=== PATIENT | male | born 1960 | race Caucasian/White ===

== ENCOUNTER 2016-11-18 12:21 | Emergency (ER) | payer OTHER ==
[2016-11-18 12:27] VITALS: BP 165/112; PULSE 88; TEMP 97.5; BMI 39.4
[2016-11-18] MEDS ORDERED: traMADol HCL 50 MG TABLET PO ONE (12:47)
[2016-11-18] MEDS ORDERED: traMADol HCL 50 MG TABLET ONE (12:52)
--- NOTE | 2016-11-18 13:00 | PDOC ---
History of Present Illness - General Chief Complaint: Pain Stated Complaint: TOOTH PAIN Time Seen by Provider: 11/18/16 12:34 History Source: Patient - History of Present Illness Timing/Duration: other Severity: moderate Associated Symptoms: denies: fever/chills, nausea/vomiting Past History - Past Medical History Allergies/Adverse Reactions: Allergies Allergy/AdvReac Type Severity Reaction Status Date / Time avocado [Avocado] Allergy Verified 11/18/16 12:27 Home Medications: Ambulatory Orders Amlodipine Bes/Olmesartan Med [Link 10-40 mg Tablet] 1 each PO DAILY #60 tablet 07/19/14 Acetaminophen/Caffeine/Butalb [Fioricet -] 1 tab PO BID PRN 12/22/15 Levofloxacin [Levaquin -] 500 mg PO DAILY #7 tablet 12/22/15 Metronidazole [Flagyl -] 250 mg PO TID #21 tablet 12/22/15 Oxycodone HCl/Acetaminophen [Percocet 5-325 mg Tablet] 1 tab PO Q4H #20 tablet MDD 6mg 11/18/16 GI Disorders: (ulcerative colitis) HTN: Yes Other medical history: MIGRAINES - Psycho/Social/Smoking Cessation Hx Suicidal Ideation: No Smoking History: Current every day smoker Have you smoked in the past 12 months: Yes Number of Cigarettes Smoked Daily: 10 Information on smoking cessation initiated: No Hx Alcohol Use: No Drug/Substance Use Hx: No Review of Systems - Review of Systems Constitutional: No: Chills, Fever *Physical Exam - Vital Signs Last Vital Signs Temp Pulse Resp BP Pulse Ox 97.5 F L 88 18 165/112 97 11/18/16 12:22 11/18/16 12:22 11/18/16 12:22 11/18/16 12:22 11/18/16 12:22 - Physical Exam General Appearance: Yes: Appropriately Dressed. No: Apparent Distress HEENT: positive: Normal Voice, Other (dental caries and decay, +ttp to L lower 1st molar, no s/o infection) Neck: positive: Supple. negative: Lymphadenopathy (R), Lymphadenopathy (L) Respiratory/Chest: negative: Respiratory Distress ED Treatment Course - Medications Given in the ED: ED Medications Discontinued Medications Generic Name Dose Route Start Last Admin Trade Name Freq PRN Reason Stop Dose Admin Tramadol HCl 50 mg 11/18/16 12:47 11/18/16 12:53 Ultram - PO 11/18/16 12:48 50 mg ONCE ONE Administration Medical Decision Making - Medical Decision Making 11/18/16 13:02 56-year-old male, denies any significant past medical history, here with dental pain. Patient states he developed pain to left lower molar a week ago and was seen by his dentist and had tooth removed and started on penicillin. Has since completed antibiotics but here because tooth adjacent to extracted tooth became painful last night. No facial swelling, fever or chills. Pt well debbie in NAD w/ poor dentition c/w dental caries and dental decay, has +ttp to palpation of L lower 1st molar, no swelling, erythema or discharge. Dc w/ pain control and give dental referral as pt currently unsatisfied w/ current dentist 11/18/16 13:08 *DC/Admit/Observation/Transfer Diagnosis at time of Disposition: Toothache - Discharge Dispostion Disposition: HOME Condition at time of disposition: Good - Prescriptions Prescriptions: Oxycodone HCl/Acetaminophen [Percocet 5-325 mg Tablet] 1 tab PO Q4H #20 tablet MDD 6mg - Patient Instructions Printed Discharge Instructions: Tooth Decay Additional Instructions: Please follow up at following dental clinic this week: [facility] [address] [place] [id number]
== END 2016-11-18 13:12 | disposition home or self-care (01) ==
LOC: JERFT 12:21
DX: K08.89 Other specified disorders of teeth and supporting structures (principal); I10 Essential (primary) hypertension; G43.909 Migraine, unspecified, not intractable, without status migrainosus
CPT/HCPCS: 99281-25

== ENCOUNTER 2017-01-06 16:32 | Emergency (ER) | payer OTHER ==
[2017-01-06 16:37] VITALS: BP 150/99; PULSE 83; TEMP 97.6; BMI 40.3
--- NOTE | 2017-01-06 17:06 | PDOC ---
History of Present Illness <Dyllan Cuevas - Last Filed: 01/06/17 22:21> - History of Present Illness Initial Comments: 01/06/17 17:45 Patient is a 56 year old male with significant medical hx of ulcerative colitis , HTN and migraines who is presenting to the ED with suprapubic pain and diarrhea for one week. The patient reports some diffuse abdominal pain that is significantly worse in the suprapubic area. The patient states that last week his diarrhea was watery and yesterday it was black. Denies fever, chills, vomiting. PMD: Emmanuel Lopez MD GI: Ray Cervnates MD <Cari Morrison - Last Filed: 01/06/17 22:30> - General Chief Complaint: Pain, Acute Stated Complaint: ABDOMINAL PAIN Time Seen by Provider: 01/06/17 17:05 Past History - Past Medical History Diabetes: Yes GI Disorders: (ulcerative colitis) HTN: Yes Other medical history: MIGRAINES - Psycho/Social/Smoking Cessation Hx Suicidal Ideation: No Smoking History: Current every day smoker Have you smoked in the past 12 months: Yes Number of Cigarettes Smoked Daily: 20 Information on smoking cessation initiated: No Hx Alcohol Use: No Drug/Substance Use Hx: No <Dyllan Cuevas - Last Filed: 01/06/17 22:21> <Cari Morrison - Last Filed: 01/06/17 22:30> - Past Medical History Allergies/Adverse Reactions: Allergies Allergy/AdvReac Type Severity Reaction Status Date / Time avocado [Avocado] Allergy Verified 01/06/17 16:37 Home Medications: Ambulatory Orders Amlodipine Bes/Olmesartan Med [Link 10-40 mg Tablet] 1 each PO DAILY #60 tablet 07/19/14 Acetaminophen/Caffeine/Butalb [Fioricet -] 1 tab PO BID PRN 12/22/15 Canagliflozin/Metformin HCl [Invokamet 50-500 mg Tablet] 1 each PO BID 01/06/17 Lipase/Protease/Amylase [Luisito Kelly 36,000 Units Capsule] 1 each PO TID 01/06/17 Review of Systems - Review of Systems Comments:: 01/06/17 17:46 CONSTITUTIONAL: Absent: fever, chills, diaphoresis, generalized weakness, malaise, loss of appetite HEENT: Absent: rhinorrhea, nasal congestion, throat pain, throat swelling, difficulty swallowing, mouth swelling, ear pain, eye pain, visual changes CARDIOVASCULAR: Absent: chest pain, syncope, palpitations, irregular heart rate, lightheadedness , peripheral edema RESPIRATORY: Absent: cough, shortness of breath, dyspnea with exertion, orthopnea, wheezing, stridor, hemoptysis GASTROINTESTINAL: Present: suprapubic pain, diarrhea Absent: abdominal distension, nausea, vomiting, constipation, melena, hematochezia GENITOURINARY: Absent: dysuria, frequency, urgency, hesitancy, hematuria, flank pain, genital pain MUSCULOSKELETAL: Absent: myalgia, arthralgia, joint swelling SKIN: Absent: rash, itching, pallor HEMATOLOGIC/IMMUNOLOGIC: Absent: easy bleeding, easy bruising, lymphadenopathy, frequent infections ENDOCRINE: Absent: unexplained weight gain, unexplained weight loss, heat intolerance, cold intolerance NEUROLOGIC: Absent: headache, focal weakness or paresthesia, dizziness, unsteady gait, seizure, mental status changes, bladder or bowel incontinence. PSYCHIATRIC: Absent: anxiety, depression, suicidal or homicidal ideation, hallucinations <Cari Morrison - Last Filed: 01/06/17 22:30> *Physical Exam - Vital Signs Last Vital Signs Temp Pulse Resp BP Pulse Ox 97.6 F 83 18 150/99 96 01/06/17 16:33 01/06/17 16:33 01/06/17 16:33 01/06/17 16:33 01/06/17 16:33 <Dyllan Cuevas - Last Filed: 01/06/17 22:21> - Vital Signs Last Vital Signs Temp Pulse Resp BP Pulse Ox 97.6 F 83 18 150/99 96 01/06/17 16:33 01/06/17 16:33 01/06/17 16:33 01/06/17 16:33 01/06/17 16:33 - Physical Exam Comments: 01/06/17 17:46 GENERAL: Well developed, well nourished. Awake and alert. No acute distress. HEENT: Normocephalic, atraumatic. PERRLA, EOMI. No conjunctival pallor. Sclera are non- icteric. Moist mucous membranes. Oropharynx is clear. NECK: Supple. Full ROM. No JVD. Carotid pulses 2+ and symmetric, without bruits. No thyromegaly. No lymphadenopathy. CARDIOVASCULAR: Regular rate and rhythm. No murmurs, rubs, or gallops. Distal pulses are 2+ and symmetric. PULMONARY: No evidence of respiratory distress. Lungs clear to auscultation bilaterally. No wheezing, rales or rhonchi. ABDOMINAL: Soft. Diffusely tender. No peritoneal signs. Non-distended. No rebound or guarding. No organomegaly. Normoactive bowel sounds. MUSCULOSKELETAL: Normal range of motion at all joints. No bony deformities or tenderness. No CVA tenderness. EXTREMITIES: No cyanosis. No clubbing. No edema. No calf tenderness. SKIN: Warm and dry. Normal capillary refill. No rashes. No jaundice. NEUROLOGICAL: Alert, awake, appropriate. Cranial nerves 2-12 intact. Normal speech. Gait is normal without ataxia. PSYCHIATRIC: Cooperative. Good eye contact. Appropriate mood and affect. <Cari Morrison - Last Filed: 01/06/17 22:30> Heart Score/ECG Review #1 01/06/17 17:49 Normal sinus rhythm at 70 bpm Possible Left atrial enlargement Left ventricular hypertrophy Abnormal ECG <Cari Morrison - Last Filed: 01/06/17 22:30> ED Treatment Course - LABORATORY CBC & Chemistry Diagram: 01/06/17 17:11 01/06/17 17:11 <Dyllan Cuevas - Last Filed: 01/06/17 22:21> - LABORATORY CBC & Chemistry Diagram: 01/06/17 17:11 01/06/17 17:11 - RADIOLOGY Radiograph Interpretation: 01/06/17 22:28 Abdomen/Pelvis CT Impression: A few diverticula are again noted at the distal descending up to the mid sigmoid colon without evidence of acute diverticulitis. No CT evidence of an acute process in the abdomen and pelvis. Correlate clinically for further evaluation and follow-up. Stable approximately 6 mm pulmonary nodule in the right middle lobe. Reported By: Michele Khan MD <Cari Morrison - Last Filed: 01/06/17 22:30> Medical Decision Making - Medical Decision Making 01/06/17 17:48 Check blood work and CT with contrast, will hydrate him in the mean time and treat pain. Reassess once results return. Suspect this is an exacerbation of his ulcerative colitis. <Cari Morrison - Last Filed: 01/06/17 22:30> *DC/Admit/Observation/Transfer - Attestations Physician Attestion: 01/06/17 17:05 I, Dr. Dyllan Cuevas, attest that this document has been prepared under my direction and personally reviewed by me in its entirety. I further attest, that it accurately reflects all work, treatment, procedures and medical decision -making performed by me. <Dyllan Cuevas - Last Filed: 01/06/17 22:21> - Attestations Scribe Attestion: 01/06/17 17:47 Documentation prepared by Cari Morrison, acting as medical educator for Dyllan Cuevas MD. <Cari Morrison - Last Filed: 01/06/17 22:30> Diagnosis at time of Disposition: Abdominal pain Qualifiers: Abdominal location: generalized Qualified Code(s): R10.84 - Generalized abdominal pain - Discharge Dispostion Disposition: HOME Condition at time of disposition: Good - Referrals Referrals: Emmanuel Reese [Primary Care Provider] - - Patient Instructions Printed Discharge Instructions: DI for Abdominal Pain-Adult Additional Instructions: Pierre- ALL OF YOUR TESTS WERE NORMAL TONIGHT. Please take the copies of all your tests to your doctor. Follow up this week. Return to us if any problems. Best- Dr. Dyllan Cuevas
[2017-01-06] MEDS ORDERED: SODIUM CHLORIDE 1,000 ML IV STA ×2 (17:07→17:14)
[2017-01-06] MEDS ORDERED: ONDANSETRON 4 MG/2 ML VIAL IVPB ONE (17:14)
[2017-01-06] MEDS ORDERED: morphine CARPU-JECT 4 MG/1 ML DISP.SYRIN IVPUSH ONE (17:55)
[2017-01-06] MEDS ORDERED: ONDANSETRON 4 MG/2 ML VIAL ONE (17:58)
[2017-01-06] MEDS ORDERED: morphine CARPU-JECT 4 MG/1 ML DISP.SYRIN ONE (18:00)
[2017-01-06 18:19] LABS: BASOPHIL 0.6 % (0-2.0); EOSINOPHIL 2.8 % (0-4.5); MCH 31.3 pg (25.7-33.7); MCHC 33.4 g/dl (32.0-35.9); MEAN CELL VOLUME 93.9 fl (80-96); MEAN PLT VOLUME 7.4 fl (7.5-11.1); NEUTROPHILS 64.2 % (42.8-82.8); PLATELET COUNT 244 K/MM3 (134-434); RDW 13.7 % (11.9-15.9); WHITE BLOOD COUNT 12.8 K/mm3 (4.0-10.0)
[2017-01-06 18:31] LABS: INR 1.02 (0.82-1.09); PROTHROMBIN TIME (PATIENT) 11.2 SEC (9.98-11.88)
[2017-01-06 18:43] LABS: ALBUMIN 4.1 g/dl (3.4-5.0); ALK PHOS 77 U/L (45-117); ANION GAP 7 (8-16); BILIRUBIN,TOTAL 0.3 mg/dL (0.2-1.0); CO2 31 mmol/L (21-32); COCKROFT - GAULT 159.15; CREATININE 0.8 mg/dL (0.7-1.3); GLUCOSE,RANDOM 90 mg/dL (74-106); SGOT/AST 32 U/L (15-37); SGPT/ALT 46 U/L (12-78); TOT PROT 7.8 g/dl (6.4-8.2)
[2017-01-06 20:33] LABS: URINE APPEARANCE CLEAR; URINE BILIRUBIN NEGATIVE (NEGATIVE); URINE BLOOD NEGATIVE (NEGATIVE); URINE COLOR LTYELLOW; URINE GLUCOSE (UA) 2+ (NEGATIVE); URINE KETONE NEGATIVE (NEGATIVE); URINE LEUK ESTERASE NEGATIVE (NEGATIVE); URINE NITRITE NEGATIVE (NEGATIVE); URINE PROTEIN NEGATIVE (NEGATIVE); URINE UROBILINOGEN NEGATIVE E.U./dl (0.2-1.0)
--- NOTE | 2017-01-07 11:08 | EKG ---
Test Reason : Blood Pressure : / mmHG Vent. Rate : 070 BPM Atrial Rate : 070 BPM P-R Int : 162 ms QRS Dur : 088 ms QT Int : 382 ms P-R-T Axes : 048 049 030 degrees QTc Int : 412 ms NORMAL SINUS RHYTHM POSSIBLE LEFT ATRIAL ENLARGEMENT LEFT VENTRICULAR HYPERTROPHY ABNORMAL ECG WHEN COMPARED WITH ECG OF 22-DEC-2015 17:01, NONSPECIFIC T WAVE ABNORMALITY, IMPROVED IN INFERIOR LEADS Confirmed by NAJMA ED MD ([id number]) on 01/07/2017 11:08:05 AM Referred By: Confirmed By:NAJMA DE MD
== END 2017-01-06 22:27 | disposition home or self-care (01) ==
LOC: JER 16:32
PROC: 3E0337Z Introduction of Electrolytic and Water Balance Substance into Peripheral Vein, Percutaneous Approach (ICD-10-PCS; principal; 2017-01-06)
PROC: 3E033NZ Introduction of Analgesics, Hypnotics, Sedatives into Peripheral Vein, Percutaneous Approach (ICD-10-PCS; 2017-01-06)
PROC: 3E033GC Introduction of Other Therapeutic Substance into Peripheral Vein, Percutaneous Approach (ICD-10-PCS; 2017-01-06)
DX: R10.84 Generalized abdominal pain (principal); K51.90 Ulcerative colitis, unspecified, without complications; I10 Essential (primary) hypertension; G43.909 Migraine, unspecified, not intractable, without status migrainosus; F17.210 Nicotine dependence, cigarettes, uncomplicated
CPT/HCPCS: 36415; 74177-TC; 80053; 81003; 83605; 83690; 85025; 85610; 93005; 93010; 99284-25; Q9967

== ENCOUNTER 2017-06-20 16:08 | Emergency (ER) | payer OTHER ==
[2017-06-20 16:14] VITALS: BP 133/81; PULSE 75; TEMP 97.7; BMI 40.3
--- NOTE | 2017-06-20 16:39 | PDOC ---
History of Present Illness <Brandon Rivera - Last Filed: 06/20/17 18:21> - General History Source: Patient Exam Limitations: No Limitations - History of Present Illness Initial Comments: 06/20/17 17:44 Patient is a 56 yo m w/ PMH Migraines, HTN, previous CVA who comes into the ED c /o right sided facial pain for the past 1 week and body aches. The patient states that since his CVA in February of this year, he has experienced generalized body aches as well as residual weakness and loss of sensation on the right side. The weakness has since resolved and he regained sensation on the right side of his face and head one month ago. The patient os concerned that this facial pain may be secondary to "microfractures" as he has had several falls since his CVA with the most recent being one month ago. Patient is unsure of he hit his head at that time. The patient describes the pain as a dull pain over the whole right face with sharp pains over several specific points clustered around the right orbit. The patient has tried ibuprofen, tylenol, tylenol 3 and valium, all of which did not work. Pain is exacerbated by even light touch and resolves spontaneously after approx. one hour. Patient denies fevers, chills, CP , SOB, N/V/D, abdominal pain. <Sunny Chakraborty - Last Filed: 06/20/17 20:00> - General Chief Complaint: Pain Stated Complaint: FACIAL PAIN Time Seen by Provider: 06/20/17 16:39 Past History <Brandon Rivera - Last Filed: 06/20/17 18:21> - Travel Traveled outside of the country in the last 30 days: No - Past Medical History CVA: Yes (02/2017) GI Disorders: Yes (ulcerative colitis) HTN: Yes Other medical history: Migranes, Hep C? - Family Disease History Family Disease History: Diabetes: Mother (HTN, CVA, migraines), Other: Mother - Suicide/Smoking/Psychosocial Hx Smoking History: Current every day smoker Have you smoked in the past 12 months: Yes Number of Cigarettes Smoked Daily: 20 Information on smoking cessation initiated: Yes 'Breaking Loose' booklet given: 06/20/17 Hx Alcohol Use: No Drug/Substance Use Hx: No Substance Use Type: None <Sunny Chakraborty - Last Filed: 06/20/17 20:00> - Past Medical History Allergies/Adverse Reactions: Allergies Allergy/AdvReac Type Severity Reaction Status Date / Time avocado [Avocado] Allergy Verified 06/20/17 16:14 Home Medications: Ambulatory Orders Acetaminophen/Caffeine/Butalb [Fioricet -] 1 tab PO PRN PRN 12/22/15 Canagliflozin/Metformin HCl [Invokamet 50-500 mg Tablet] 1 each PO BID 01/06/17 Lipase/Protease/Amylase [Luisito Kelly 36,000 Units Capsule] 1 each PO TID 01/06/17 Amlodipine Besylate 10 mg PO DAILY 06/20/17 Amoxicillin/Potassium Clav [Amox-Clav 500-125 mg Tablet] 1 each PO TID #21 tablet 06/20/17 Aspirin [ASA -] 81 mg PO DAILY 06/20/17 Famotidine [Pepcid -] 40 mg PO DAILY 06/20/17 Gabapentin 2 tab PO HS 06/20/17 Losartan Potassium 100 mg PO DAILY 06/20/17 Meclizine HCl 25 mg PO DAILY 06/20/17 Review of Systems - Review of Systems Constitutional: No: Chills, Fever, Night Sweats HEENTM: Yes: Nose Congestion. No: Blurred Vision, Recent change in vision, Double Vision, Nose Pain, Nose Bleeding, Throat Pain Respiratory: No: Shortness of Breath Cardiac (ROS): No: Chest Pain, Edema, Palpitations ABD/GI: Yes: Abdominal Distended. No: Diarrhea, Nausea, Rectal Bleeding, Vomiting Musculoskeletal: Yes: Back Pain, Joint Pain, Muscle Pain. No: Joint Swelling, Muscle Weakness Neurological: Yes: Headache, Pre-Existing Deficit, Weakness, Dizziness. No: Tremors <Sunny Chakraborty - Last Filed: 06/20/17 20:00> *Physical Exam - Vital Signs Last Vital Signs Temp Pulse Resp BP Pulse Ox 97.7 F 75 19 133/81 97 06/20/17 16:11 06/20/17 16:11 06/20/17 16:11 06/20/17 16:11 06/20/17 16:11 <Brandon Rivera - Last Filed: 06/20/17 18:21> - Vital Signs Last Vital Signs Temp Pulse Resp BP Pulse Ox 97.7 F 75 19 133/81 97 06/20/17 16:11 06/20/17 16:11 06/20/17 16:11 06/20/17 16:11 06/20/17 16:11 - Physical Exam General Appearance: Yes: Appropriately Dressed, Mild Distress HEENT: positive: MAXINE, Pharynx Normal. negative: Photophobia, Scleral Icterus ( R), Scleral Icterus (L), Pharyngeal Erythema, Tonsillar Exudate Neck: positive: Trachea midline, Supple Respiratory/Chest: positive: Wheezing (scant expiratory wheezes in all lung araya). negative: Respiratory Distress, Accessory Muscle Use Cardiovascular: positive: Regular Rhythm, Regular Rate, S1, S2. negative: Edema , JVD, Murmur, Gallop/S3, Gallop/S4 Gastrointestinal/Abdominal: positive: Normal Bowel Sounds, Soft, Distended. negative: Guarding, Rebound Neurologic: positive: recreational director II-XII NML intact, Fully Oriented, Alert, Normal Mood/ Affect, Motor Strength 5/5, Other (exquisite pain over right face exacerbated by light palpation). negative: Sensory Deficit <Sunny Chakraborty - Last Filed: 06/20/17 20:00> ED Treatment Course - LABORATORY CBC & Chemistry Diagram: 06/20/17 18:10 06/20/17 18:10 - ADDITIONAL ORDERS Additional order review: 06/20/17 18:10 RBC 4.83 MCV 92.9 MCHC 34.2 RDW 13.7 MPV 6.8 L - Medications Given in the ED: ED Medications Discontinued Medications Generic Name Dose Route Start Last Admin Trade Name Lidya PRN Reason Stop Dose Admin Acetaminophen 1,000 mg 06/20/17 17:42 06/20/17 18:00 Ofirmev Injection - IVPB 06/20/17 17:43 1,000 mg ONCE ONE Administration Carbamazepine 100 mg 06/20/17 18:05 06/20/17 18:06 Tegretol - PO 06/20/17 18:06 100 mg ONCE ONE Administration <Brandon Rivera - Last Filed: 06/20/17 18:21> - LABORATORY CBC & Chemistry Diagram: 06/20/17 18:10 06/20/17 18:10 <Sunny Chakraborty - Last Filed: 06/20/17 20:00> Medical Decision Making - Medical Decision Making 06/20/17 18:05 Patient is a 56 yo m w/ PMH HTN, migraines and previous CVA comes in complaining of right facial pain which is exacerbated by palpation. Pt is s/p fall. Neurologic pain is high on the differential, but fracture should be ruled out. -CBC, CMP -CT Head and facial bones -IV tylenol -will reassess. -carbamazepine PO 06/20/17 19:56 -labs unremarkable. -CT shows parasinal disease. -500mg augmentin x1 -d/c on augmentin 500 TID x 7 days -advise close f/u -advise neuro f/u <Sunny Chakraborty - Last Filed: 06/20/17 20:00> *DC/Admit/Observation/Transfer <Brandon Rivera - Last Filed: 06/20/17 18:21> - Discharge Dispostion Admit: No <Sunny Chakraborty - Last Filed: 06/20/17 20:00> Diagnosis at time of Disposition: Sinusitis Qualifiers: Sinusitis location: unspecified location Chronicity: acute Recurrence: recurrent Qualified Code(s): J01.91 - Acute recurrent sinusitis, unspecified; J01.91 - Acute recurrent sinusitis, unspecified - Discharge Dispostion Disposition: HOME Condition at time of disposition: Improved - Prescriptions Prescriptions: Amoxicillin/Potassium Clav [Amox-Clav 500-125 mg Tablet] 1 each PO TID #21 tablet - Referrals Referrals: Emmanuel Reese [Primary Care Provider] - Osvlado Pittman MD [Staff Physician] - - Patient Instructions Printed Discharge Instructions: DI for Trigeminal Neuralgia, DI for Cluster Headache Additional Instructions: Call the number provided to make an appointment with neurology clinic. If you experience worsening pain, headaches, weakness, numbness, or any other concerning symptoms, return to the ER immediately.
[2017-06-20] MEDS ORDERED: ACETAMINOPHEN 1000 MG/100 ML VIAL (NON FORMULARY) IVPB ONE (17:42)
[2017-06-20] MEDS ORDERED: ACETAMINOPHEN INJECTION 100 ML IVPB ONE (17:45)
[2017-06-20] MEDS ORDERED: carBAMazepine 100 MG TAB.CHEW PO ONE (18:05)
[2017-06-20] MEDS ORDERED: carBAMazepine 200 MG TABLET ONE (18:07)
--- NOTE | 2017-06-20 18:15 | PDOC ---
Attending Attestation - Resident Resident Name: Sunny Chakraborty - ED Attending Attestation I have performed the following: I have examined & evaluated the patient, The case was reviewed & discussed with the resident, I agree w/resident's findings & plan, Exceptions are as noted - HPI HPI: 06/20/17 18:08 56 M with h/o HTN, migraines, CVA presents to ER with 1 week of R facial pain. Pt states that he has intermittent episodes of sharp shooting pain in his cheek. He also complains of a less severe throbbing pain from his cheek to his forehead, only on the right side. He also reports sensitivity to touch. The sharp pain occurs daily and lasts about 15 minutes at a time. Pt denies any recent trauma but states that he fell about 30 days ago and might have struck his face against the night stand. Denies any new weakness/numbness/tingling in his extremities. Denies headache/N/V. Denies neck pain. Denies hearing or visual changes. Denies rash. Pt also reports several months of back aches that he believes began after his stroke. Denies any new changes in this pain. - Physicial Exam PE: 06/20/17 18:15 "GENERAL: Awake, alert, and fully oriented, in no acute distress HEAD: No signs of trauma EYES: PERRLA, EOMI, sclera anicteric, conjunctiva clear ENT: TMs normal bilaterally, Auricles normal inspection, hearing grossly normal , nares patent, oropharynx clear without exudates. Moist mucosa NECK: Nontender, no stepoffs, Normal ROM, supple, no lymphadenopathy, JVD, or masses LUNGS: Breath sounds equal, clear to auscultation bilaterally. No wheezes, and no crackles HEART: Regular rate and rhythm, normal S1 and S2, no murmurs, rubs or gallops ABDOMEN: Soft, nontender, normoactive bowel sounds. No guarding, no rebound. No masses EXTREMITIES: Normal range of motion, no edema. No clubbing or cyanosis. No cords, erythema, or tenderness NEUROLOGICAL: Cranial nerves II through XII intact. 5/5 strength and sensation in all extremities, Normal speech, normal gait, R forehead and cheek hyperesthetic, sensation normal in chin SKIN: Warm, Dry, normal turgor, no rashes or lesions noted. " - Medical Decision Making 06/20/17 18:16 56 M with intermittent R facial pain. Ddx includes trigeminal neuralgia vs cluster headache. Pt with no focal neuro deficits. No evidence of shingles on exam. Negative hedrick's sign. No evidence of harriet cool. - Labs - CT to r/o fx - carbamazepine, tylenol - f/u neurology 06/20/17 19:58 CT shows likely sinusitis. Will tx with augmentin given duration and severity of symptoms.
[2017-06-20 18:18] LABS: MCH 31.7 pg (25.7-33.7); MCHC 34.2 g/dl (32.0-35.9); MEAN CELL VOLUME 92.9 fl (80-96); MEAN PLT VOLUME 6.8 fl (7.5-11.1); PLATELET COUNT 266 K/MM3 (134-434); RDW 13.7 % (11.9-15.9); WHITE BLOOD COUNT 12.1 K/mm3 (4.0-10.0)
[2017-06-20 18:57] LABS: ALBUMIN 3.5 g/dl (3.4-5.0); ALK PHOS 73 U/L (45-117); ANION GAP 10 (8-16); BILIRUBIN,TOTAL 0.3 mg/dL (0.2-1.0); CALCIUM 8.5 mg/dL (8.5-10.1); CO2 27 mmol/L (21-32); CREATININE 0.7 mg/dL (0.7-1.3); GLUCOSE,RANDOM 87 mg/dL (74-106); SGPT/ALT 42 U/L (12-78); TOT PROT 7.4 g/dl (6.4-8.2)
[2017-06-20 19:14] LABS: SGOT/AST 34 U/L (15-37)
[2017-06-20] MEDS ORDERED: AMOX TR/POT CLAV 500MG/125MG TABLETS (FP) PO ONE (19:52)
[2017-06-20] MEDS ORDERED: AMOX TR/POT CLAV 500MG/125MG TABLETS (FP) ONE (20:09)
--- NOTE | 2017-06-26 09:09 | EKG ---
Test Reason : Blood Pressure : / mmHG Vent. Rate : 066 BPM Atrial Rate : 066 BPM P-R Int : 162 ms QRS Dur : 092 ms QT Int : 406 ms P-R-T Axes : 038 019 016 degrees QTc Int : 425 ms NORMAL SINUS RHYTHM T WAVE ABNORMALITY, CONSIDER LATERAL ISCHEMIA ABNORMAL ECG WHEN COMPARED WITH ECG OF 06-JAN-2017 17:29, INVERTED T WAVES HAVE REPLACED NONSPECIFIC T WAVE ABNORMALITY IN LATERAL LEADS Confirmed by LINA CARRENO, GISSELLE ([id number]) on 06/26/2017 9:08:45 AM Referred By: Confirmed By:GISSELLE MILLS MD
== END 2017-06-20 20:16 | disposition home or self-care (01) ==
LOC: JER 16:08
PROC: 3E033NZ Introduction of Analgesics, Hypnotics, Sedatives into Peripheral Vein, Percutaneous Approach (ICD-10-PCS; principal; 2017-06-20)
DX: J01.91 Acute recurrent sinusitis, unspecified (principal); I10 Essential (primary) hypertension; I69.851 Hemiplegia and hemiparesis following other cerebrovascular disease affecting right dominant side; F17.210 Nicotine dependence, cigarettes, uncomplicated; Z91.81 History of falling; Z86.69 Personal history of other diseases of the nervous system and sense organs
CPT/HCPCS: 36415; 70450-TC; 70486-TC; 80053; 85027; 93005; 93010; 96374; 99282-25

== ENCOUNTER 2017-10-02 05:36 | Emergency (ER) | payer OTHER ==
--- NOTE | 2017-10-02 05:49 | PDOC ---
History of Present Illness - General Chief Complaint: Headache Stated Complaint: HEADACHE,HISTORY OF STROKE Time Seen by Provider: 10/02/17 05:48 - History of Present Illness Initial Comments: 10/02/17 05:54 56 y.o. male with a PMH of CVA (residual LLE weakness), HTN and migraines presents with a complaint of acute onset of headache. Patient states he got up to go to the bathroom around 4 a.m. and felt a sharp pain in his head. Headache is stabbing, 10/10 starts in R parietal lobe and radiates down to his R lateral neck. Patient states this is different from his usual migraines which are frontal, commence in the morning and are relieved by Fiorcet . Patient denies any visual changes, sensory deficits, confusion. Patient denies any trauma or recent medication changes. Patient denies chest pain, shortness of breath, nausea/vomiting, constipation/ diarrhea. Past History - Past Medical History Allergies/Adverse Reactions: Allergies Allergy/AdvReac Type Severity Reaction Status Date / Time avocado [Avocado] Allergy Verified 10/02/17 05:41 Home Medications: Ambulatory Orders Amlodipine Besylate 10 mg PO DAILY 06/20/17 Aspirin [ASA -] 81 mg PO DAILY 06/20/17 Famotidine [Pepcid -] 40 mg PO DAILY 06/20/17 Gabapentin 2 tab PO HS 06/20/17 Losartan Potassium 100 mg PO DAILY 06/20/17 Meclizine HCl 25 mg PO DAILY 06/20/17 Amoxicillin/Potassium Clav [Augmentin 875-125 Tablet] 1 each PO BID 10 Days #20 tablet MDD 2 Tab 10/02/17 CVA: Yes (02/2017) Diabetes: Yes GI Disorders: Yes (ulcerative colitis) HTN: Yes - Family Disease History Family Disease History: Diabetes: Mother (HTN, CVA, migraines), Other: Mother - Suicide/Smoking/Psychosocial Hx Smoking History: Never smoked Have you smoked in the past 12 months: No Number of Cigarettes Smoked Daily: 20 Information on smoking cessation initiated: No 'Breaking Loose' booklet given: 06/20/17 Hx Alcohol Use: No Drug/Substance Use Hx: No Substance Use Type: None Review of Systems - Review of Systems Constitutional: No: Chills, Fever HEENTM: No: Recent change in vision Respiratory: No: Shortness of Breath Cardiac (ROS): No: Chest Pain *Physical Exam - Vital Signs Last Vital Signs Temp Pulse Resp BP Pulse Ox 98.4 F 95 H 18 168/79 97 10/02/17 05:41 10/02/17 05:41 10/02/17 05:41 10/02/17 05:41 10/02/17 05:41 - Physical Exam General Appearance: Yes: Nourished, Disheveled, Obese HEENT: positive: EOMI, MAXINE Neck: positive: Trachea midline, Supple Respiratory/Chest: positive: Lungs Clear, Normal Breath Sounds Cardiovascular: positive: S1, S2 Gastrointestinal/Abdominal: positive: Normal Bowel Sounds, Soft, Protuberent Extremity: positive: Calf Tenderness Integumentary: positive: Normal Color, Dry 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 male with a PMH of CVA who presents with acute onset of headache. At presentation, patient's NIHSS Stroke Scale is 0, low clincal suspicion for repeat CVA. Will CT head for new onset of headache inconsistent with prior migraine. Pain control with Tylenol. Reassess. 10/02/17 06:40 CT head negative for CVA. Will give headache cocktail of Reglan + Benadryl reassess. Patient signed out to Dr. Zayas (Resident) for further management. *DC/Admit/Observation/Transfer Diagnosis at time of Disposition: Sinusitis Qualifiers: Sinusitis location: frontal Chronicity: acute Recurrence: non-recurrent Qualified Code(s): J01.10 - Acute frontal sinusitis, unspecified - Discharge Dispostion Disposition: HOME Condition at time of disposition: Stable - Prescriptions Prescriptions: Amoxicillin/Potassium Clav [Augmentin 875-125 Tablet] 1 each PO BID 10 Days #20 tablet MDD 2 Tab - Referrals Referrals: Aquiles Sibley MD [Staff Physician] - Horacio Francis MD [Staff Physician] - Avtar Panda MD [Staff Physician] - - Patient Instructions Printed Discharge Instructions: DI for Sinusitis Additional Instructions: Please return to the emergency department with any new or worsening symptoms or concerns. Please follow up with your neurologist within the next 24-72 hours. Please take Augmentin two pills a day. Flonase over the counter, and Lion Med sinus Rinse as needed for sinus relief. - Post Discharge Activity
[2017-10-02] MEDS ORDERED: SODIUM CHLORIDE 1,000 ML IV SCH (06:00)
[2017-10-02 06:08] VITALS: BMI 32.3
[2017-10-02] MEDS ORDERED: METOCLOPRAMIDE HCL INJECTION 10 MG/2 ML VIAL IM ONE (06:35)
[2017-10-02 06:47] LABS: BASO % 1.2 % (0-2.0); EOS % 4.4 % (0-4.5); HEMATOCRIT 43.3 % (35.4-49); HEMOGLOBIN 14.6 GM/dL (11.7-16.9); LYMPH % 35.5 % (8-40); MCHC 33.8 g/dl (32.0-35.9); MEAN CELL VOLUME 91.8 fl (80-96); MEAN PLT VOLUME 7.2 fl (7.5-11.1); MONO % 4.9 % (3.8-10.2); PLATELET COUNT 295 K/MM3 (134-434); RBC 4.71 M/mm3 (4.00-5.60); RDW 13.8 % (11.9-15.9); WHITE BLOOD COUNT 10.4 K/mm3 (4.0-10.0)
[2017-10-02] MEDS ORDERED: KETOROLAC TROMETHAMINE 15 MG/ML VIAL IM ONE (06:47)
[2017-10-02] MEDS ORDERED: KETOROLAC TROMETHAMINE 15 MG/ML VIAL ONE (06:51)
[2017-10-02] MEDS ORDERED: METOCLOPRAMIDE HCL INJECTION 10 MG/2 ML VIAL ONE (06:51)
[2017-10-02 07:01] LABS: INR 0.91 (0.82-1.09); PROTHROMBIN TIME (PATIENT) 10.3 SEC (9.98-11.88)
--- NOTE | 2017-10-02 07:34 | PDOC ---
Attending Attestation - Resident Resident Name: IvánKetty - ED Attending Attestation I have performed the following: I have examined & evaluated the patient, The case was reviewed & discussed with the resident, I agree w/resident's findings & plan - HPI HPI: 10/02/17 07:31 Pt comes with a WHITE and he fears that he may be having a stroke, as he has a stroke hx. - Physicial Exam PE: 10/02/17 07:32 Agree with resident exam. - Medical Decision Making 10/02/17 07:32 Pt will be signed out to the day team and they will follow labs and imaging. 10/02/17 07:33 DATE OF SERVICE: 2017-10-02 06:01:00 IMAGES: 147 EXAM: CT brain without contrast HISTORY: Headache COMPARISON: None. FINDINGS: The ventricular system is midline and nondilated. The sulcal pattern is normal for the patient's age. There is no bleed, mass, extra-axial fluid collection or mass effect. No skull fracture or skull lesion is identified. There is scattered sinus mucosal thickening and bubbly secretions in the left maxillary sinus, likely representing sinusitis. The visualized mastoid air cells are clear. IMPRESSION: No acute intracranial pathology. Probable sinusitis, predominantly in the left maxillary sinus, which could be the cause of the patient's headache.
--- NOTE | 2017-10-02 08:00 | PDOC ---
*Physical Exam - Vital Signs Last Vital Signs Temp Pulse Resp BP Pulse Ox 98.4 F 95 H 18 168/79 97 10/02/17 05:41 10/02/17 05:41 10/02/17 05:41 10/02/17 05:41 10/02/17 05:41 - Physical Exam Comments: 10/02/17 08:07 GENERAL: Awake, alert, and fully oriented, in no acute distress HEAD: No signs of trauma, normocephalic, atraumatic EYES: PERRLA, EOMI, sclera anicteric, conjunctiva clear ENT: Hearing grossly normal, nares patent, oropharynx clear without exudates. Moist mucosa NECK: Normal ROM, supple, no lymphadenopathy, JVD, or masses LUNGS: No distress, speaks full sentences, clear to auscultation bilaterally HEART: Regular rate and rhythm, normal S1 and S2, no murmurs, rubs or gallops, peripheral pulses normal and equal bilaterally. EXTREMITIES : Normal inspection, Normal range of motion, no edema. No clubbing or cyanosis. NEUROLOGICAL: Cranial nerves II through XII grossly intact. Normal speech, normal gait, Decreased LLE motor strength ( baseline) SKIN: Warm, Dry, normal turgor, no rashes or lesions noted. ED Treatment Course - LABORATORY CBC & Chemistry Diagram: 10/02/17 06:37 10/02/17 06:30 - ADDITIONAL ORDERS Additional order review: Laboratory Results 10/02/17 10/02/17 06:37 05:49 PT with INR 10.30 INR 0.91 Blood Type Cancelled Antibody Screen Cancelled - Medications Given in the ED: ED Medications Discontinued Medications Generic Name Dose Route Start Last Admin Trade Name Lidya PRN Reason Stop Dose Admin Diphenhydramine HCl 50 mg 10/02/17 06:35 10/02/17 06:57 Benadryl Injection - IM 10/02/17 06:36 50 mg ONCE ONE Administration Ketorolac Tromethamine 15 mg 10/02/17 06:47 10/02/17 06:57 Toradol Injection - IM 10/02/17 06:48 15 mg ONCE ONE Administration Metoclopramide HCl 10 mg 10/02/17 06:35 10/02/17 06:57 Reglan Injection - IM 10/02/17 06:36 10 mg ONCE ONE Administration Medical Decision Making - Medical Decision Making 10/02/17 07:53 56 yo M with a h/o HTN, CVA (residual LLE weakness), and migraines presents with a complaint of acute onset of headache 10/10 sharp stabbing, R parietal lobe WHITE, with radiation down R lateral neck. WHITE different than previous migraines. Denies N/V, F/C, CP, SOB, visual changes, sensory disturbance, confusion. Denies head trauma. CT Head was unremarkable. Pt. given benadryl, toradol, and reglan. ED Course: 10/02/17 08:[address] Treat with Augmentin, Flonase, and Neils sinus nasal rinse. Patient stable. WHITE improved. CK: 1297 CKI: 0.9 IV LR 1 L Patient for discharge with return precautions. Advised outpt. follow up. *DC/Admit/Observation/Transfer Diagnosis at time of Disposition: Sinusitis Qualifiers: Sinusitis location: frontal Chronicity: acute Recurrence: non-recurrent Qualified Code(s): J01.10 - Acute frontal sinusitis, unspecified - Discharge Dispostion Disposition: HOME Condition at time of disposition: Stable Admit: No - Prescriptions Prescriptions: Amoxicillin/Potassium Clav [Augmentin 875-125 Tablet] 1 each PO BID 10 Days #20 tablet MDD 2 Tab - Referrals - Patient Instructions Printed Discharge Instructions: DI for Sinusitis Additional Instructions: Please return to the emergency department with any new or worsening symptoms or concerns. Please follow up with your neurologist within the next 24-72 hours. Please take Augmentin two pills a day. Flonase over the counter, and Lion Med sinus Rinse as needed for sinus relief. - Post Discharge Activity - Attestations Physician Attestion: 10/02/17 08:13 I attest to the documentation provided in this note.
[2017-10-02 08:11] LABS: ALBUMIN 3.6 g/dl (3.4-5.0); ANION GAP 8 (8-16); BILIRUBIN,TOTAL 0.3 mg/dL (0.2-1.0); BLOOD UREA NITROGEN 13 mg/dL (7-18); CALCIUM 8.1 mg/dL (8.5-10.1); CHLORIDE 107 mmol/L (98-107); CHOLESTEROL 172 mg/dL (50-200); CO2 26 mmol/L (21-32); CREATININE 0.8 mg/dL (0.7-1.3); GLUCOSE,RANDOM 131 mg/dL (74-106); LDL CHOLESTEROL (ONLY SJRH) 118 mg/dL (5-100); SGPT/ALT 45 U/L (12-78); SODIUM 141 mmol/L (136-145); TRIGLYCERIDES 276 mg/dL (35-160)
[2017-10-02 08:23] LABS: ALK PHOS 70 U/L (45-117); HDL CHOLESTEROL 29 mg/dL (40-60); TOT PROT 7.4 g/dl (6.4-8.2)
[2017-10-02] MEDS ORDERED: AMOX TR/POT CLAV 875MG/125MG TABLETS (FP) PO ONE (08:32)
[2017-10-02] MEDS ORDERED: ACETAMINOPHEN/CAFFEINE/BUTALBITAL 1 TAB PO ONE (08:33)
--- NOTE | 2017-10-02 08:38 | PDOC ---
*Physical Exam - Vital Signs Last Vital Signs Temp Pulse Resp BP Pulse Ox 98.4 F 95 H 18 168/79 97 10/02/17 05:41 10/02/17 05:41 10/02/17 05:41 10/02/17 05:41 10/02/17 05:41 - Physical Exam Comments: 10/02/17 08:34 Gen: sleeping, easily arsousable heart: +s1s2 reg Lungs: cta b/l Abd: soft, nt/nd +bs Ext: no c/c/e Neuro: cn ii-xii grossly intact, no focal deficits, R frontal and maxillary ttp ED Treatment Course - LABORATORY CBC & Chemistry Diagram: 10/02/17 06:37 10/02/17 06:30 - ADDITIONAL ORDERS Additional order review: Laboratory Results 10/02/17 10/02/17 06:37 05:49 PT with INR 10.30 INR 0.91 Blood Type Cancelled Antibody Screen Cancelled 10/02/17 06:37 RBC 4.71 MCV 91.8 MCHC 33.8 RDW 13.8 MPV 7.2 L Neutrophils % 54.0 Lymphocytes % 35.5 D Monocytes % 4.9 Eosinophils % 4.4 Basophils % 1.2 - Medications Given in the ED: ED Medications Discontinued Medications Generic Name Dose Route Start Last Admin Trade Name Lidya PRN Reason Stop Dose Admin Diphenhydramine HCl 50 mg 10/02/17 06:35 10/02/17 06:57 Benadryl Injection - IM 10/02/17 06:36 50 mg ONCE ONE Administration Ketorolac Tromethamine 15 mg 10/02/17 06:47 10/02/17 06:57 Toradol Injection - IM 10/02/17 06:48 15 mg ONCE ONE Administration Metoclopramide HCl 10 mg 10/02/17 06:35 10/02/17 06:57 Reglan Injection - IM 10/02/17 06:36 10 mg ONCE ONE Administration Medical Decision Making - Medical Decision Making 10/02/17 08:37 a/p: 56yo male with brandt and facial pain -head ct shows sinusitis facial pain on exam signed out pending head ct and labs will start abx for sinusitis will medicate for migraine brandt pt takes fioricet neuro intact, no focal neuro deficits discussed plan with the patient recommend ENT follow up and neuro follow up as an oupt 10/02/17 10:23 mildly elevated cpk - ivf hydration running stable for dc to home augmentin rx given has flonase at home recommend sinus rinse and follow up with ENT *DC/Admit/Observation/Transfer Diagnosis at time of Disposition: Sinusitis Qualifiers: Sinusitis location: frontal Chronicity: acute Recurrence: non-recurrent Qualified Code(s): J01.10 - Acute frontal sinusitis, unspecified - Discharge Dispostion Disposition: HOME Condition at time of disposition: Stable - Prescriptions Prescriptions: Amoxicillin/Potassium Clav [Augmentin 875-125 Tablet] 1 each PO BID 10 Days #20 tablet MDD 2 Tab - Referrals - Patient Instructions Printed Discharge Instructions: DI for Sinusitis Additional Instructions: Please return to the emergency department with any new or worsening symptoms or concerns. Please follow up with your neurologist within the next 24-72 hours. Please take Augmentin two pills a day. Flonase over the counter, and Lion Med sinus Rinse as needed for sinus relief. - Post Discharge Activity
[2017-10-02 08:43] LABS: POTASSIUM 3.8 mmol/L (3.5-5.1)
[2017-10-02 08:44] LABS: SGOT/AST 56 U/L (15-37)
[2017-10-02] MEDS ORDERED: LACTATED RINGERS SOLUTION 1,000 ML/1,000 ML INFUS.BAG IV STA (08:51)
[2017-10-02] MEDS ORDERED: ACETAMINOPHEN/CAFFEINE/BUTALBITAL 1 TAB ONE (09:36)
[2017-10-02] MEDS ORDERED: AMOX TR/POT CLAV 875MG/125MG TABLETS (FP) ONE (09:36)
[2017-10-02 11:15] VITALS: BP 157/75; PULSE 89; TEMP 98
--- NOTE | 2017-10-02 12:17 | EKG ---
Test Reason : Blood Pressure : / mmHG Vent. Rate : 082 BPM Atrial Rate : 082 BPM P-R Int : 160 ms QRS Dur : 086 ms QT Int : 378 ms P-R-T Axes : 034 020 048 degrees QTc Int : 441 ms NORMAL SINUS RHYTHM NORMAL ECG WHEN COMPARED WITH ECG OF 20-JUN-2017 18:08, NONSPECIFIC T WAVE ABNORMALITY NO LONGER EVIDENT IN INFERIOR LEADS T WAVE INVERSION NO LONGER EVIDENT IN LATERAL LEADS BASELINE ARTIFACT Confirmed by MARIO CARRENO, ACE ([id number]) on 10/02/2017 12:17:31 PM Referred By: Confirmed By:ACE MARTIN MD
== END 2017-10-02 11:21 | disposition home or self-care (01) ==
LOC: JER 05:36
PROC: 3E0337Z Introduction of Electrolytic and Water Balance Substance into Peripheral Vein, Percutaneous Approach (ICD-10-PCS; principal; 2017-10-02)
PROC: 3E0233Z Introduction of Anti-inflammatory into Muscle, Percutaneous Approach (ICD-10-PCS; 2017-10-02)
PROC: 3E023GC Introduction of Other Therapeutic Substance into Muscle, Percutaneous Approach (ICD-10-PCS; 2017-10-02)
PROC: 3E023GC Introduction of Other Therapeutic Substance into Muscle, Percutaneous Approach (ICD-10-PCS; 2017-10-02)
DX: J01.10 Acute frontal sinusitis, unspecified (principal); I10 Essential (primary) hypertension; G43.909 Migraine, unspecified, not intractable, without status migrainosus; I69.854 Hemiplegia and hemiparesis following other cerebrovascular disease affecting left non-dominant side
CPT/HCPCS: 36415; 70450-TC; 80053; 82465; 82550; 82553; 83718; 83721; 84478; 84484; 85025; 85610; 93005; 93010; 96360; 96372; 99282-25

== ENCOUNTER 2017-10-20 12:43 | Emergency (ER) | payer OTHER ==
[2017-10-20 12:51] VITALS: BP 175/87; PULSE 83; TEMP 97.5; BMI 41.1
[2017-10-20] MEDS ORDERED: NAPROXEN 500 MG TABLET (FP) PO ONE (13:08)
[2017-10-20] MEDS ORDERED: NAPROXEN 500 MG TABLET (FP) ONE (13:12)
[2017-10-20] MEDS ORDERED: IBUPROFEN 400 MG TABLET (FP) PO ONE ×2 (13:16)
--- NOTE | 2017-10-20 13:41 | PDOC ---
History of Present Illness - General Chief Complaint: Pain Stated Complaint: LEG PAIN Time Seen by Provider: 10/20/17 12:59 History Source: Patient Exam Limitations: No Limitations - History of Present Illness Initial Comments: 10/20/17 13:29 56 yr male with c/o pain to both ankles and feet since 2 days states he may have injured them when lying on the couch. Pt has multiple medical problems. Pt saw his MD yesterday and was referred to an orthopedist. Pt denies fever or chills. Severity: moderate Associated Symptoms: reports: denies symptoms Past History - Past Medical History Allergies/Adverse Reactions: Allergies Allergy/AdvReac Type Severity Reaction Status Date / Time avocado [Avocado] Allergy Verified 10/20/17 12:51 Home Medications: Ambulatory Orders Amlodipine Besylate 10 mg PO DAILY 06/20/17 Aspirin [ASA -] 81 mg PO DAILY 06/20/17 Famotidine [Pepcid -] 40 mg PO DAILY 06/20/17 Gabapentin 2 tab PO HS 06/20/17 Losartan Potassium 100 mg PO DAILY 06/20/17 Meclizine HCl 25 mg PO DAILY 06/20/17 Amoxicillin/Potassium Clav [Augmentin 875-125 Tablet] 1 each PO BID 10 Days #20 tablet MDD 2 Tab 10/02/17 Ibuprofen 800 mg PO TID PRN #15 tablet 10/20/17 CVA: Yes (02/2017) COPD: No Diabetes: Yes GI Disorders: Yes (ulcerative colitis) HTN: Yes Liver Disease: Yes (hepatitis) - Family Disease History Family Disease History: Diabetes: Mother (HTN, CVA, migraines), Other: Mother - Suicide/Smoking/Psychosocial Hx Smoking History: Current every day smoker Have you smoked in the past 12 months: Yes Number of Cigarettes Smoked Daily: 20 Information on smoking cessation initiated: No 'Breaking Loose' booklet given: 06/20/17 Hx Alcohol Use: No Drug/Substance Use Hx: No Substance Use Type: None Review of Systems - Review of Systems Able to Perform ROS?: Yes Is the patient limited Trinidadian proficient: No Constitutional: No: Symptoms Reported HEENTM: No: Symptoms Reported Respiratory: No: Symptoms reported Cardiac (ROS): No: Symptoms Reported ABD/GI: No: Symptoms Reported : No: Symptoms Reported Musculoskeletal: Yes: Symptoms Reported *Physical Exam - Vital Signs Last Vital Signs Temp Pulse Resp BP Pulse Ox 97.5 F L 83 18 175/87 100 10/20/17 12:48 10/20/17 12:48 10/20/17 12:48 10/20/17 12:48 10/20/17 12:48 - Physical Exam General Appearance: Yes: Nourished, Appropriately Dressed HEENT: positive: EOMI, MAXINE, Normal ENT Inspection, Normal Voice Neck: positive: Supple Respiratory/Chest: positive: Lungs Clear, Normal Breath Sounds Cardiovascular: positive: Regular Rhythm, Regular Rate Extremity: positive: Normal Capillary Refill, Normal Inspection, Normal Range of Motion, Other (bilateral feet with fungal nail infections, dry cracked skin, poor hygeine, lateral bony tenderness, neg swelling. ) Integumentary: positive: Normal Color, Dry, Warm Neurologic: positive: concrete tester II-XII NML intact, Fully Oriented, Alert, Normal Mood/ Affect Procedures - Splinting Pre-Made Type: aircast ED Treatment Course - RADIOLOGY Radiology Studies Ordered: Category Date Time Status ANKLE & FOOT-LEFT* [RAD] Stat Radiology 10/20/17 13:08 Ordered ANKLE & FOOT-RIGHT* [RAD] Stat Radiology 10/20/17 13:08 Ordered - Medications Given in the ED: ED Medications Discontinued Medications Generic Name Dose Route Start Last Admin Trade Name Alessandroq PRN Reason Stop Dose Admin Ibuprofen 800 mg 10/20/17 13:16 10/20/17 13:18 Motrin - PO 10/20/17 13:17 800 mg ONCE ONE Administration Naproxen 500 mg 10/20/17 13:08 10/20/17 13:18 Naprosyn - PO 10/20/17 13:09 500 mg ONCE ONE Administration Medical Decision Making - Medical Decision Making 10/20/17 13:44 cc: bilateral foot and ankle pain right worse than left, pt requesting xray to r /o fractures pt has chronic swelling to the lower legs. nv intact, poor nail hygeine with fungal infections (pt being treated by his PMD ) tender to the achiles heel right side 10/20/17 14:21 xrays reviewed, old fracture of the talus on the left foot noted, no acute fracture pt is tender over the lateral area of the foot right ankle and foot wet read is negative, will await official read dc home with follow up with the orthopedist will place air cast splint to the right ankle *DC/Admit/Observation/Transfer Diagnosis at time of Disposition: Foot pain Ankle pain Qualifiers: Chronicity: acute Laterality: right Qualified Code(s): M25.571 - Pain in right ankle and joints of right foot - Discharge Dispostion Disposition: HOME Condition at time of disposition: Fair - Prescriptions Prescriptions: Ibuprofen 800 mg PO TID PRN #15 tablet PRN Reason: Pain - Referrals Referrals: Emmanuel Reese [Primary Care Provider] - Humble Houston MD [Staff Physician] - Horacio Decker MD [Staff Physician] - - Patient Instructions Additional Instructions: follow with the orthopedist for follow up and with a nurse chemical dependency is the nurse chemical dependency Dr. Decker is the orthopedist take ibuprofen for pain you must follow with your primary care and your pain management doctor as needed - Post Discharge Activity
== END 2017-10-20 15:18 | disposition home or self-care (01) ==
LOC: JERFT 12:43
PROC: 2W3QX1Z Immobilization of Right Lower Leg using Splint (ICD-10-PCS; principal; 2017-10-20)
DX: M25.571 Pain in right ankle and joints of right foot (principal); B35.1 Tinea unguium; I10 Essential (primary) hypertension; E11.9 Type 2 diabetes mellitus without complications; Z86.73 Personal history of transient ischemic attack (TIA), and cerebral infarction without residual deficits; Z87.19 Personal history of other diseases of the digestive system
CPT/HCPCS: 73610-TC-LT-FY; 73610-TC-RT-FY; 73630-TC-LT; 73630-TC-RT-FY; 99281-25

== ENCOUNTER 2018-04-16 14:45 | Observation (INO) | payer OTHER ==
[2018-04-16 15:10] VITALS: BMI 34.8
--- NOTE | 2018-04-16 15:20 | PDOC ---
History of Present Illness - General Chief Complaint: Chest Pain Stated Complaint: CHEST PAIN/NUMBNESS LT ARM Time Seen by Provider: 04/16/18 15:09 History Source: Patient - History of Present Illness Initial Comments: 04/16/18 16:01 Patient is a 57 year old male with a PMH of HTN, CVA (with residual L sided weakness), NIDDM, and obesity presents to the ED c/o resolved chest pain. Patient was at home rolling cigarettes when he felt a stabbing chest pain across his anterior chest. Endorses associated shortness of breath and lightheadedness as well as LUE numbness. No prior h/o similar pain. Pain resolved by time of presentation to ED, however continues to c/o LUE numbness. ROS is positive for R sided facial pain and sensitivity to touch, however patient notes this has been present since his CVA. Patient also notes h/o chronic B/L extremity pain which is managed by a pain doctor. Denies any new changes in his facial or B/L LE pain. Patient denies abdominal pain, diarrhea/constipation, nausea/vomiting, dysuria/ hematuria. Patient denies recent travel/sick contacts. NKDA Surgical: denies Social: 8-10 cigarettes daily, 1-2 alcoholic drinks weekly, denies other toxic habits PMD: Dr. Reese Past History - Past Medical History Allergies/Adverse Reactions: Allergies Allergy/AdvReac Type Severity Reaction Status Date / Time avocado [Avocado] Allergy Verified 10/20/17 12:51 Home Medications: Ambulatory Orders Amlodipine Besylate 10 mg PO DAILY 06/20/17 Aspirin [ASA -] 81 mg PO DAILY 06/20/17 Losartan Potassium 100 mg PO DAILY 06/20/17 Acetaminophen/Caffeine/Butalb [Fioricet -] 1 tablet PO DAILY 04/16/18 Clonidine HCl [Clonidine HCl ER] 0.1 mg PO DAILY 04/16/18 Famotidine [Pepcid] 40 mg PO DAILY 04/16/18 Metformin HCl [Metformin HCl ER] 500 mg PO BID 04/16/18 Oxycodone HCl/Acetaminophen [Percocet 5-325 mg Tablet] 2 tab PO Q6H 04/16/18 Pravastatin Sodium 20 mg PO BID 04/16/18 CVA: Yes (02/2017) COPD: No DVT: No Diabetes: Yes GI Disorders: Yes (ulcerative colitis) HTN: Yes Liver Disease: Yes (hepatitis) - Family Disease History Family Disease History: Diabetes: Mother (HTN, CVA, migraines), Other: Mother - Immunization History Immunization Up to Date: Yes - Suicide/Smoking/Psychosocial Hx Smoking History: Unknown if ever smoked Have you smoked in the past 12 months: Yes Number of Cigarettes Smoked Daily: 20 Information on smoking cessation initiated: No 'Breaking Loose' booklet given: 06/20/17 Hx Alcohol Use: No Drug/Substance Use Hx: No Substance Use Type: None Review of Systems - Review of Systems Constitutional: No: Chills, Fever HEENTM: No: Blurred Vision, Double Vision Respiratory: Yes: Shortness of Breath. No: Cough, Stridor, Wheezing Cardiac (ROS): Yes: Chest Pain. No: Lightheadedness, Palpitations ABD/GI: No: Constipated, Diarrhea, Nausea, Vomiting *Physical Exam - Vital Signs Last Vital Signs Temp Pulse Resp BP Pulse Ox 98.0 F 76 16 142/80 100 04/16/18 14:46 04/16/18 14:46 04/16/18 14:46 04/16/18 14:46 04/16/18 14:46 - Physical Exam General Appearance: Yes: Disheveled, Obese Neck: positive: Trachea midline, Supple Respiratory/Chest: positive: Lungs Clear, Normal Breath Sounds, Other (anterior chest wall tenderness) Cardiovascular: positive: S1, S2, Murmur. negative: JVD Vascular Pulses: Dorsalis-Pedis (R): 2+, Doralis-Pedis (L): 2+ Gastrointestinal/Abdominal: positive: Normal Bowel Sounds, Soft Musculoskeletal: negative: Vertebral Tenderness Extremity: positive: Normal Capillary Refill, Normal Inspection Integumentary: positive: Normal Color, Dry, Warm Neurologic: positive: Fully Oriented, Alert ED Treatment Course - LABORATORY CBC & Chemistry Diagram: 04/16/18 15:40 04/16/18 17:50 Medical Decision Making - Medical Decision Making 04/16/18 16:11 57 year old male with a PMH of HTN, NIDDM presents with stabbing anterior chest pain. VS unremarkable Frontal diagnosis: r/o ACS, chostochondritis, muskoskeletal, vasospasm 2/2 to toxic drug use. ECG shows NSR, HR 70, no ERICA/STD, TWI in V5-V6 not consistent with prior ECG dated 06/20/17. PLAN: CBC, CMP, Cardiac Profile, BNP. Reassess. 04/16/18 18:46 Patient continues to c/o of intermittent chest pain. VS stable. Troponin (-) x1 04/16/18 18:51 Given patient's concerning ECG findings will admit for further evaluation including cardiology. Trend troponins. Hospitalist paged for admission. *DC/Admit/Observation/Transfer Diagnosis at time of Disposition: Chest pain - Discharge Dispostion Condition at time of disposition: Fair Decision to Admit order: Yes - Referrals Referrals: Emmanuel Reese [Primary Care Provider] - - Patient Instructions - Post Discharge Activity
[2018-04-16] MEDS ORDERED: ACETAMINOPHEN/CAFFEINE/BUTALBITAL 1 TAB PO ONE (16:18)
[2018-04-16 16:24] LABS: BASO % 0.7 % (0-2.0); EOS % 2.6 % (0-4.5); HEMATOCRIT 44.6 % (35.4-49); HEMOGLOBIN 15.4 GM/dL (11.7-16.9); LYMPH % 20.2 % (8-40); MCH 32.6 pg (25.7-33.7); MCHC 34.5 g/dl (32.0-35.9); MEAN CELL VOLUME 94.5 fl (80-96); MEAN PLT VOLUME 7.6 fl (7.5-11.1); MONO % 5.5 % (3.8-10.2); PLATELET COUNT 239 K/MM3 (134-434); RBC 4.71 M/mm3 (4.00-5.60); RDW 14.1 % (11.9-15.9); WHITE BLOOD COUNT 10.1 K/mm3 (4.0-10.0)
--- NOTE | 2018-04-16 16:42 | PDOC ---
Attending Attestation - Resident Resident Name: Ketty Minor - ED Attending Attestation I have performed the following: I have examined & evaluated the patient, The case was reviewed & discussed with the resident, I agree w/resident's findings & plan, Exceptions are as noted - HPI HPI: 04/16/18 16:43 57yo M hx HTN, CVA (with residual L sided weakness), NIDDM, migraines, smoker and obesity presents to the ED with sternal CP radiating to LUE. Pain began while rolling cigarettes this morning. Denies associated SOB at this time. Also denies diaphoresis, dizziness, focal weakness, fevers, chills, cough. Pt also reporting a R sided headache that he states feels like his migraines for which he requests fioricet. Pt is a poor historian and changes his story btwn providers. He expressed LUE numbness to Dr. Minor, expressed to me that he only felt radiating pain down his LUE. Denies LUE numbness. Denies hx similar CP. States PMD is Dr. 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 - Physicial Exam PE: 04/16/18 16:48 GENERAL: Awake, alert, and fully oriented, in no acute distress. Disheveled and malodorous HEAD: No signs of trauma EYES: PERRLA, EOMI, sclera anicteric, conjunctiva clear ENT: Auricles normal inspection, hearing grossly normal, nares patent, oropharynx clear without exudates. Moist mucosa NECK: Normal ROM, supple, no lymphadenopathy, JVD, or masses LUNGS: Breath sounds equal, clear to auscultation bilaterally. No wheezes, and no crackles HEART: Regular rate and rhythm, normal S1 and S2, no murmurs, rubs or gallops ABDOMEN: Soft, nontender, normoactive bowel sounds. No guarding, no rebound. No masses EXTREMITIES: Normal range of motion, no edema. No clubbing or cyanosis. No cords, erythema, or tenderness NEUROLOGICAL: Normal speech, cranial nerves intact, negative pronator drift, 5/ 5 strength in all 4 extremities, normal sensation to light touch in all 4 extremities, normal cerebellar exam, normal gait, normal reflexes and tone SKIN: Warm, Dry, normal turgor, no rashes or lesions noted. - Medical Decision Making 04/16/18 17:01 57yo M hx CVA, smoker, migraines, obesity presents to the ED with CP radiating to LUE. EKG with new TWI laterally. HS 4-5. Will admit for cardiac workup. 04/16/18 19:10 trop neg CXR clear pt pending admission for cardiac w/u case signed out to overnight attending for further mgmt Heart Score/ECG Review - History History: Moderately suspicious - Electrocardiogram EKG: Non specific repolarization disturbance - Age Age: 45-65 - Risk Factors Risk Factors Heart Score: Yes Smoking History, Yes Hx Obesity Based on the list above the patient has:: 1-2 risk factors - Troponin Troponin: </= normal limit - Score Heart Score - Total: 4 #1 04/16/18 16:49 Twelve-lead EKG was performed and reviewed by me. Normal sinus rhythm, rate 70 to. Normal axis. No ST elevations. T wave inversions in V5, V6 and T-wave flattening in aVL area when compared to old EKG, T-wave inversions in V5 and V6 are new.
[2018-04-16] MEDS ORDERED: ACETAMINOPHEN/CAFFEINE/BUTALBITAL 1 TAB ONE (16:44)
[2018-04-16 18:18] LABS: ALBUMIN 3.6 g/dl (3.4-5.0); ANION GAP 9 (8-16); BILIRUBIN,TOTAL 0.5 mg/dL (0.2-1.0); BLOOD UREA NITROGEN 11 mg/dL (7-18); CALCIUM 8.7 mg/dL (8.5-10.1); CHLORIDE 103 mmol/L (98-107); CO2 27 mmol/L (21-32); CREATININE 0.9 mg/dL (0.7-1.3); GLUCOSE,RANDOM 125 mg/dL (74-106); POTASSIUM 3.9 mmol/L (3.5-5.1); SGOT/AST 36 U/L (15-37); SGPT/ALT 44 U/L (12-78); SODIUM 139 mmol/L (136-145); TOT PROT 7.4 g/dl (6.4-8.2)
[2018-04-16 18:19] LABS: ALK PHOS 77 U/L (45-117)
[2018-04-16 18:20] LABS: N-TERMINAL BNP 31.22 pg/ml (5-125)
--- NOTE | 2018-04-16 20:35 | HP ---
CHIEF COMPLAINT: Chest Pain PCP: Dr. Roman Reese HISTORY OF PRESENT ILLNESS: This is a 57 y/o man with a PMH of HTN, CVA (with residual L sided weakness), NIDDM, and Obesity. Who presents to the ED c/o resolved chest pain. Patient was at home rolling cigarettes when he felt a stabbing chest pain across his anterior chest. Endorses associated shortness of breath and lightheadedness as well as LUE numbness. No prior h/o similar pain. Pain resolved by time of presentation to ED, however continues to c/o LUE numbness. ROS is positive for R sided facial pain and sensitivity to touch, however patient notes this has been present since his CVA. Patient also notes h/o chronic B/L extremity pain which is managed by a pain doctor. Denies any new changes in his facial or B/L LE pain. Patient denies fever, chills, abdominal pain, diarrhea/constipation, nausea/ vomiting, dysuria/hematuria. Patient denies recent travel/sick contacts. l ER course was notable for: (1) Troponin 0.02 (2) EKG- NSR 70, no ERICA/STD, TWI V5-V6 (3) Glucose 125 (4) UDT: +Benzodiazepines, +barbiturates Recent Travel: None PAST MEDICAL HISTORY: See HPI PAST SURGICAL HISTORY: None Social History: Smoking: Current 8-10 cigarettes daily Alcohol: 1-2 mixed drinks weekly Drugs: Denies Lives alone, Independent Family History: Mother: DM, HTN, CVA, Migraines Allergies avocado [Avocado] Allergy (Verified 10/20/17 12:51) HOME MEDICATIONS: Home Medications Medication Instructions Recorded Amlodipine Besylate 10 mg PO DAILY 06/20/17 Aspirin [ASA -] 81 mg PO DAILY 06/20/17 Losartan Potassium 100 mg PO DAILY 06/20/17 Acetaminophen/Caffeine/Butalb 1 tablet PO DAILY 04/16/18 [Fioricet -] Clonidine HCl [Clonidine HCl ER] 0.1 mg PO DAILY 04/16/18 Famotidine [Pepcid] 40 mg PO DAILY 04/16/18 Metformin HCl [Metformin HCl ER] 500 mg PO BID 04/16/18 Oxycodone HCl/Acetaminophen 2 tab PO Q6H 04/16/18 [Percocet 5-325 mg Tablet] Pravastatin Sodium 20 mg PO BID 04/16/18 REVIEW OF SYSTEMS CONSTITUTIONAL: Absent: fever, chills, diaphoresis, generalized weakness, malaise, loss of appetite, weight change HEENT: Absent: rhinorrhea, nasal congestion, throat pain, throat swelling, difficulty swallowing, mouth swelling, ear pain, eye pain, visual changes CARDIOVASCULAR: chest pain Absent: syncope, palpitations, irregular heart rate, lightheadedness, peripheral edema RESPIRATORY: Absent: cough, shortness of breath, dyspnea with exertion, orthopnea, wheezing, stridor, hemoptysis GASTROINTESTINAL: Absent: abdominal pain, abdominal distension, nausea, vomiting, diarrhea, constipation, melena, hematochezia GENITOURINARY: Absent: dysuria, frequency, urgency, hesitancy, hematuria, flank pain, genital pain MUSCULOSKELETAL: left leg pain Absent: myalgia, arthralgia, joint swelling, back pain, neck pain SKIN: Absent: rash, itching, pallor HEMATOLOGIC/IMMUNOLOGIC: Absent: easy bleeding, easy bruising, lymphadenopathy, frequent infections ENDOCRINE: Absent: unexplained weight gain, unexplained weight loss, heat intolerance, cold intolerance NEUROLOGIC: Absent: headache, focal weakness or paresthesias, dizziness, unsteady gait, seizure, mental status changes, bladder or bowel incontinence PSYCHIATRIC: Absent: anxiety, depression, suicidal or homicidal ideation, hallucinations. PHYSICAL EXAMINATION Vital Signs - 24 hr 04/16/18 04/16/18 04/16/18 14:46 17:56 20:13 Temperature 98.0 F 98.2 F Pulse Rate 76 85 Pulse Rate [ 73 Apical] Respiratory 16 18 Rate Blood Pressure 142/80 Blood Pressure 145/84 [Left Arm] O2 Sat by Pulse 100 97 95 Oximetry (%) 04/16/18 20:14 Temperature Pulse Rate Pulse Rate [ 85 Apical] Respiratory 20 Rate Blood Pressure Blood Pressure 150/100 [Left Arm] O2 Sat by Pulse 95 Oximetry (%) GENERAL: Poor Hygiene, Obese, awake, alert, and fully oriented, in no acute distress. HEAD: Normal with no signs of trauma. EYES: Pupils equal, round and reactive to light, extraocular movements intact, sclera anicteric, conjunctiva clear. No lid lag. EARS, NOSE, THROAT: Ears normal, nares patent, oropharynx clear without exudates. Moist mucous membranes. NECK: Normal range of motion, supple without lymphadenopathy, JVD, or masses. LUNGS: Breath sounds equal, clear to auscultation bilaterally. No wheezes, and no crackles. No accessory muscle use. HEART: Regular rate and rhythm, normal S1 and S2 without murmur, rub or gallop. CP non-reproducible ABDOMEN: Soft, Obese, nontender, not distended, normoactive bowel sounds, no guarding, no rebound, no masses. No hepatomegaly or splenomegaly. MUSCULOSKELETAL: Normal range of motion at all joints. No bony deformities or tenderness. No CVA tenderness. UPPER EXTREMITIES: 2+ pulses, warm, well-perfused. No cyanosis. No clubbing. No peripheral edema. LOWER EXTREMITIES:+ Left calf tenderness 2+ pulses, warm, well-perfused. No Right calf tenderness. No peripheral edema. NEUROLOGICAL: Cranial nerves II-XII intact. Normal speech. Antalgic gait with cane PSYCHIATRIC: Cooperative. Good eye contact. Appropriate mood and affect. SKIN: Warm, dry, normal turgor, no rashes or lesions noted, normal capillary refill. Laboratory Results - last 24 hr 04/16/18 04/16/18 04/16/18 15:40 15:40 15:40 WBC 10.1 H RBC 4.71 Hgb 15.4 Hct 44.6 MCV 94.5 MCH 32.6 MCHC 34.5 RDW 14.1 Plt Count 239 MPV 7.6 Absolute Neuts (auto) 7.2 Neutrophils % 71.0 D Lymphocytes % 20.2 D Monocytes % 5.5 Eosinophils % 2.6 Basophils % 0.7 Nucleated RBC % 0 Sodium Cancelled Potassium Cancelled Chloride Cancelled Carbon Dioxide Cancelled Anion Gap Cancelled BUN Cancelled Creatinine Cancelled Creat Clearance w eGFR Cancelled POC Glucometer Random Glucose Cancelled Calcium Cancelled Total Bilirubin Cancelled AST Cancelled ALT Cancelled Alkaline Phosphatase Cancelled Creatine Kinase Cancelled Creatine Kinase Index CK-MB (CK-2) Troponin I Cancelled B-Natriuretic Peptide Cancelled Total Protein Cancelled Albumin Cancelled 04/16/18 04/16/18 04/16/18 15:49 17:50 17:50 WBC RBC Hgb Hct MCV MCH MCHC RDW Plt Count MPV Absolute Neuts (auto) Neutrophils % Lymphocytes % Monocytes % Eosinophils % Basophils % Nucleated RBC % Sodium 139 Potassium 3.9 Chloride 103 Carbon Dioxide 27 Anion Gap 9 BUN 11 Creatinine 0.9 Creat Clearance w eGFR > 60 POC Glucometer 114.70163 Random Glucose 125 H Calcium 8.7 Total Bilirubin 0.5 AST 36 D ALT 44 Alkaline Phosphatase 77 Creatine Kinase 391 H Creatine Kinase Index 1.2 CK-MB (CK-2) 5.05 H Troponin I < 0.02 D B-Natriuretic Peptide 31.22 Total Protein 7.4 Albumin 3.6 Laboratory Results - last 24 hr 04/16/18 04/16/18 04/16/18 15:40 15:40 15:40 WBC 10.1 H RBC 4.71 Hgb 15.4 Hct 44.6 MCV 94.5 MCH 32.6 MCHC 34.5 RDW 14.1 Plt Count 239 MPV 7.6 Absolute Neuts (auto) 7.2 Neutrophils % 71.0 D Lymphocytes % 20.2 D Monocytes % 5.5 Eosinophils % 2.6 Basophils % 0.7 Nucleated RBC % 0 Sodium Cancelled Potassium Cancelled Chloride Cancelled Carbon Dioxide Cancelled Anion Gap Cancelled BUN Cancelled Creatinine Cancelled Creat Clearance w eGFR Cancelled POC Glucometer Random Glucose Cancelled Lactic Acid Calcium Cancelled Total Bilirubin Cancelled AST Cancelled ALT Cancelled Alkaline Phosphatase Cancelled Creatine Kinase Cancelled Creatine Kinase Index CK-MB (CK-2) Troponin I Cancelled B-Natriuretic Peptide Cancelled Total Protein Cancelled Albumin Cancelled Urine Color Urine Appearance Urine pH Ur Specific [place] Urine Protein Urine Glucose (UA) Urine Ketones Urine Blood Urine Nitrite Urine Bilirubin Urine Urobilinogen Ur Leukocyte Esterase Opiates Screen Methadone Screen Barbiturate Screen Phencyclidine Screen Ur Amphetamines Screen MDMA (Ecstasy) Screen Benzodiazepines Screen Cocaine Screen U Marijuana (THC) Screen 04/16/18 04/16/18 04/16/18 15:49 17:50 17:50 WBC RBC Hgb Hct MCV MCH MCHC RDW Plt Count MPV Absolute Neuts (auto) Neutrophils % Lymphocytes % Monocytes % Eosinophils % Basophils % Nucleated RBC % Sodium 139 Potassium 3.9 Chloride 103 Carbon Dioxide 27 Anion Gap 9 BUN 11 Creatinine 0.9 Creat Clearance w eGFR > 60 POC Glucometer 114.11572 Random Glucose 125 H Lactic Acid Calcium 8.7 Total Bilirubin 0.5 AST 36 D ALT 44 Alkaline Phosphatase 77 Creatine Kinase 391 H Creatine Kinase Index 1.2 CK-MB (CK-2) 5.05 H Troponin I < 0.02 D B-Natriuretic Peptide 31.22 Total Protein 7.4 Albumin 3.6 Urine Color Urine Appearance Urine pH Ur Specific [place] Urine Protein Urine Glucose (UA) Urine Ketones Urine Blood Urine Nitrite Urine Bilirubin Urine Urobilinogen Ur Leukocyte Esterase Opiates Screen Methadone Screen Barbiturate Screen Phencyclidine Screen Ur Amphetamines Screen MDMA (Ecstasy) Screen Benzodiazepines Screen Cocaine Screen U Marijuana (THC) Screen 04/16/18 04/16/18 04/16/18 23:00 23:00 23:10 WBC RBC Hgb Hct MCV MCH MCHC RDW Plt Count MPV Absolute Neuts (auto) Neutrophils % Lymphocytes % Monocytes % Eosinophils % Basophils % Nucleated RBC % Sodium Potassium Chloride Carbon Dioxide Anion Gap BUN Creatinine Creat Clearance w eGFR POC Glucometer Random Glucose Lactic Acid 0.8 Calcium Total Bilirubin AST ALT Alkaline Phosphatase Creatine Kinase Creatine Kinase Index CK-MB (CK-2) Troponin I B-Natriuretic Peptide Total Protein Albumin Urine Color Ltyellow Urine Appearance Clear Urine pH 7.0 Ur Specific [place] 1.013 Urine Protein Negative Urine Glucose (UA) Negative Urine Ketones Negative Urine Blood Negative Urine Nitrite Negative Urine Bilirubin Negative Urine Urobilinogen Negative Ur Leukocyte Esterase Negative Opiates Screen Negative Methadone Screen Negative Barbiturate Screen Positive Phencyclidine Screen Negative Ur Amphetamines Screen Negative MDMA (Ecstasy) Screen Negative Benzodiazepines Screen Positive Cocaine Screen Negative U Marijuana (THC) Screen Negative 04/16/18 23:20 WBC RBC Hgb Hct MCV MCH MCHC RDW Plt Count MPV Absolute Neuts (auto) Neutrophils % Lymphocytes % Monocytes % Eosinophils % Basophils % Nucleated RBC % Sodium Potassium Chloride Carbon Dioxide Anion Gap BUN Creatinine Creat Clearance w eGFR POC Glucometer Random Glucose Lactic Acid Calcium Total Bilirubin AST ALT Alkaline Phosphatase Creatine Kinase Creatine Kinase Index CK-MB (CK-2) Troponin I 0.03 D B-Natriuretic Peptide Total Protein Albumin Urine Color Urine Appearance Urine pH Ur Specific [place] Urine Protein Urine Glucose (UA) Urine Ketones Urine Blood Urine Nitrite Urine Bilirubin Urine Urobilinogen Ur Leukocyte Esterase Opiates Screen Methadone Screen Barbiturate Screen Phencyclidine Screen Ur Amphetamines Screen MDMA (Ecstasy) Screen Benzodiazepines Screen Cocaine Screen U Marijuana (THC) Screen Confidential Drug Utilization Report Search Terms: jeet pitts, 1960 Search Date: 04/16/2018 10:31:52 PM Others' Prescriptions Patient Name: Jeet Pitts Date: 1960 Address: [address] [place] [address] [address] [place] [address] Sex: Male Rx Written Rx Dispensed Drug Quantity Days Supply Prescriber Name 03/16/2018 03/18/2018 oxycodone-acetaminophen 5-325 mg tablet 90 30 KellykathrynRuddy prieto M 02/14/2018 02/16/2018 oxycodone-acetaminophen 5-325 mg tablet 90 30 Elzholz, Ruddy 01/11/2018 01/17/2018 oxycodone-acetaminophen 5-325 mg tablet 90 22 Elzholz, Ruddy 12/16/2017 12/28/2017 oxycodone-acetaminophen 5-325 mg tablet 90 30 Elzholz, Ruddy 11/28/2017 11/28/2017 oxycodone-acetaminophen 5-325 mg tablet 90 30 Elzholz, Ruddy 10/28/2017 10/28/2017 oxycodone-acetaminophen 5-325 mg tablet 90 22 Elzholz, Ruddy 09/16/2017 09/17/2017 oxycodone-acetaminophen 5-325 mg tab 90 22 Elconnerholconner, Ruddy 07/18/2017 07/19/2017 oxycodone-acetaminophen 5-325 mg tab 90 22 KellyRuddy jacobs Patient Name: Jeet Pitts Date: 1960 [facility] [place] [address] Sex: Male Rx Written Rx Dispensed Drug Quantity Days Supply Prescriber Name 07/11/2017 07/11/2017 tramadol hcl 50 mg tablet 60 15 Emmanuel Reese MD ASSESSMENT/PLAN: This is a 57 y/o man placed in Tele Observation for Chest Pain r/o ACS, EKG changes for further evaluation of their emergent condition. Plan: FEN - PO fluids as tolerated - Replete lytes prn - Low Na Diabetic Diet DVT ppx - OOB - SCDs - Consider AC if LOS > 48 hrs Code Status: Full Code Dispo: Observation Problem List - Problem (1) Chest pain Assessment/Plan: - r/o ACS vs Muscular - Continue cardiac monitoring - Serial enzymes - HEART Score 4 - Appreciate Cardiology consult - Lipid panel in am - Echo - Continue Asa - Pain Mgmt - HgbA1c - Smoking Cessation Code(s): R07.9 - CHEST PAIN, UNSPECIFIED (2) CAD (coronary artery disease) Assessment/Plan: - Continue home meds - EKG reviewed - Smoking Cessation - Nicderm Patch Code(s): I25.10 - ATHSCL HEART DISEASE OF [place] CORONARY ARTERY W/O ANG PCTRS (3) HTN (hypertension) Assessment/Plan: - sub optimal - Monitor BP - Continue home meds with parameters - Monitor renal function Code(s): I10 - ESSENTIAL (PRIMARY) HYPERTENSION (4) CVA (cerebral vascular accident) Assessment/Plan: - Continue Asa - Fall precautions Code(s): I63.9 - CEREBRAL INFARCTION, UNSPECIFIED (5) Chronic pain of left lower extremity Assessment/Plan: - Duplex LLE r/o DVT-pending - WELLs Score 1 - Continue home meds - FU with pain management in outpatient - Elevate extremity Code(s): M79.605 - PAIN IN LEFT LEG; G89.29 - OTHER CHRONIC PAIN (6) Obesity (BMI 30-39.9) Assessment/Plan: - Counseled on weight - Appreciate RD consult Code(s): E66.9 - OBESITY, UNSPECIFIED Visit type - Emergency Visit Emergency Visit: Yes ED Registration Date: 04/16/18 Care time: The patient presented to the Emergency Department on the above date and was hospitalized for further evaluation of their emergent condition. - New Patient This patient is new to me today: Yes Date on this admission: 04/16/18 - Critical Care Critical Care patient: No Hospitalist Screening - Colonoscopy Questionnaire Colonoscopy Questionnaire: Colonoscopy Questionnaire - Patient: 50 - 75 years old and never had a screening colonoscopy: No History of colon or rectal polyps, or CA: No History of IBD, Crohn's disease or UC: No History of abdominal radiation therapy as a child: No - Relative: 1 with colon or rectal CA, or polyps at age 60 or younger: No Colon or rectal CA diagnosed at age 45 or younger: No Multiple relatives with colon or rectal CA: No - Outcome: Screening Result: Negative Screen
[2018-04-16] MEDS ORDERED: ACETAMINOPHEN 500 MG TABLET (FP) PO ONE (23:00)
[2018-04-16] MEDS ORDERED: oxyCODONE HCL 5 MG TABLET PO ONE (23:00)
[2018-04-16] MEDS ORDERED: ACETAMINOPHEN 325 MG TABLET (FP) ONE (23:01)
[2018-04-16] MEDS ORDERED: oxyCODONE HCL 5 MG TABLET ONE (23:01)
[2018-04-16 23:25] LABS: URINE APPEARANCE CLEAR; URINE BILIRUBIN NEGATIVE (<2.0 mg/dL); URINE COLOR LTYELLOW; URINE GLUCOSE (UA) NEGATIVE (NEGATIVE); URINE KETONE NEGATIVE (NEGATIVE); URINE LEUK ESTERASE NEGATIVE (NEGATIVE); URINE NITRITE NEGATIVE (NEGATIVE); URINE PROTEIN NEGATIVE (NEGATIVE); URINE UROBILINOGEN NEGATIVE mg/dL (0.2-1.0)
[2018-04-16 23:34] LABS: COCAINE, UR NEGATIVE ng/ml (CUTOFF=300); METHADONE, UR NEGATIVE ng/ml (CUTOFF=300); OPIATES, URI NEGATIVE ng/ml (CUTOFF=300); PHENCYCLIDINE,URINE NEGATIVE ng/ml (CUTOFF=25); URINE AMPHETAMINES NEGATIVE ng/ml (CUTOFF=500)
[2018-04-16 23:35] LABS: URINE BARBITURATES POSITIVE ng/ml (CUTOFF=200); URINE BENZODIAZEPINES POSITIVE ng/ml (CUTOFF=200)
[2018-04-17] MEDS ORDERED: IBUPROFEN 400 MG TABLET (FP) PO ONE (05:58)
[2018-04-17 07:55] LABS: BASO % 0.4 % (0-2.0); LYMPH % 13.3 % (8-40); MCH 32.7 pg (25.7-33.7); MCHC 34.9 g/dl (32.0-35.9); MEAN CELL VOLUME 93.7 fl (80-96); MEAN PLT VOLUME 7.2 fl (7.5-11.1); MONO % 6.2 % (3.8-10.2); NEUT % 79.1 % (42.8-82.8); PLATELET COUNT 203 K/MM3 (134-434); RBC 4.59 M/mm3 (4.00-5.60); RDW 13.7 % (11.9-15.9); WHITE BLOOD COUNT 8.1 K/mm3 (4.0-10.0)
[2018-04-17 08:07] LABS: ANION GAP 4 (8-16); BLOOD UREA NITROGEN 10 mg/dL (7-18); CALCIUM 8.4 mg/dL (8.5-10.1); CHLORIDE 101 mmol/L (98-107); CO2 31 mmol/L (21-32); CREATININE 0.8 mg/dL (0.7-1.3); GLUCOSE,RANDOM 120 mg/dL (74-106); MAGNESIUM 1.7 mg/dL (1.8-2.4); POTASSIUM 3.8 mmol/L (3.5-5.1); SODIUM 136 mmol/L (136-145)
--- NOTE | 2018-04-17 09:31 | EKG ---
Test Reason : Blood Pressure : / mmHG Vent. Rate : 072 BPM Atrial Rate : 072 BPM P-R Int : 134 ms QRS Dur : 088 ms QT Int : 382 ms P-R-T Axes : 026 038 033 degrees QTc Int : 418 ms NORMAL SINUS RHYTHM NONSPECIFIC T WAVE ABNORMALITY ABNORMAL ECG WHEN COMPARED WITH ECG OF 02-OCT-2017 06:44, T WAVE INVERSION NOW EVIDENT IN LATERAL LEADS Confirmed by NAYELI JAMES MD ([id number]) on 04/17/2018 9:31:10 AM Referred By: Confirmed By:NAYELI JAMES MD
[2018-04-17] MEDS ORDERED: MAGNESIUM SULF 50% (8.12 MEQ/2 ML-1 GM VIAL) IVPB ONE (09:44)
--- NOTE | 2018-04-17 09:51 | PN ---
Progress Note, Physician - Current Medication List Current Medications: Active Medications Acetaminophen/Butalbital/Caffeine (Fioricet -) 1 tablet PO BID [facility] Amlodipine Besylate (Norvasc -) 10 mg PO DAILY [facility] Aspirin (Asa -) 81 mg PO DAILY [facility] Atorvastatin Calcium (Lipitor -) 40 mg PO HS [facility] Clonidine (Catapres -) 0.1 mg PO DAILY [facility] Losartan Potassium (Losartan Potassium) 100 mg PO DAILY [facility] Magnesium Sulfate (Magnesium Sulfate) 1 gm IVPB ONCE ONE Stop: 04/17/18 09:45 Metformin HCl (Glucophage Xr -) 500 mg PO BIDAC MONY Last Admin: 04/17/18 06:31 Dose: 500 mg Ranitidine HCl (Zantac -) 300 mg PO DAILY [facility] - Objective Vital Signs: Vital Signs Temperature 101.5 F H 04/17/18 05:40 Pulse Rate 108 H 04/17/18 05:40 Respiratory Rate 18 04/17/18 08:00 Blood Pressure 153/90 04/17/18 05:40 O2 Sat by Pulse Oximetry (%) 96 04/17/18 08:00 Labs: CBC, BMP 04/17/18 06:30 04/17/18 06:30 Problem List - Problems (1) Chest pain Assessment/Plan: - r/o ACS vs Muscular - Continue cardiac monitoring - Serial enzymes - HEART Score 4 - Appreciate Cardiology consult - Lipid panel - Echo and stress test - Continue Asa - Pain Mgmt - HgbA1c - Smoking Cessation - Lipitor Code(s): R07.9 - CHEST PAIN, UNSPECIFIED (2) CAD (coronary artery disease) Assessment/Plan: - Continue home meds - EKG reviewed - Smoking Cessation - Nicderm Patch Code(s): I10 - ESSENTIAL (PRIMARY) HYPERTENSION (4) CVA (cerebral vascular accident) Assessment/Plan: - Continue Asa - Fall precautions Code(s): I63.9 - CEREBRAL INFA- sub optimal - Monitor BP - Continue home meds with parameters - Monitor renal function RCTION, UNSPECIFIED (5) Chronic pain of left lower extremity Assessment/Plan: - Duplex LLE r/o DVT-pending - WELLs Score 1 - Continue home meds - FU with pain management in outpatient - Elevate extremity Code(s): M79.605 - PAIN IN LEFT LEG; G89.29 - OTHER CHRONIC PAIN (6) Obesity (BMI 30-39.9) Assessment/Plan: - Counseled on weight - Appreciate RD consult Code(s): E66.9 - OBESITY, UNSPECIFIED Code(s): I25.10 - ATHSCL HEART DISEASE OF [place] CORONARY ARTERY W/O ANG PCTRS (3) Diaphoresis Assessment/Plan: -WBC NL AND NO FEVER -tsh -id CONSULT Code(s): R61 - GENERALIZED HYPERHIDROSIS (4) HTN (hypertension) Assessment/Plan: - sub optimal - Monitor BP - Continue home meds with parameters - Monitor renal function Code(s): I10 - ESSENTIAL (PRIMARY) HYPERTENSION (5) Chronic pain of left lower extremity Assessment/Plan: C - Duplex LLE r/o DVT-Neagative - WELLs Score 1 - Continue home meds - FU with pain management in outpatient - Elevate extremity Code(s): M79.605 - PAIN IN LEFT LEG; G89.29 - OTHER CHRONIC PAIN
[2018-04-17] MEDS ORDERED: ACETAMINOPHEN/CAFFEINE/BUTALBITAL 1 TAB PO SCH (10:00)
[2018-04-17] MEDS ORDERED: cloNIDine HCL 0.1 MG TABLET PO SCH (10:00)
[2018-04-17] MEDS ORDERED: ASPIRIN 81 MG CHEWABLE TABLETS PO SCH (10:00)
[2018-04-17] MEDS ORDERED: RANITIDINE HCL 150 MG TABLET (FP) PO SCH (10:00)
[2018-04-17] MEDS ORDERED: amLODIPine BESYLATE 10 MG TABLET (FP) PO SCH (10:00)
[2018-04-17] MEDS ORDERED: LOSARTAN POTASSIUM 100 MG TABLET PO SCH (10:00)
--- NOTE | 2018-04-17 11:13 | PN ---
Progress Note (short form) - Note Progress Note: Cardiac stress lab Patient referred for stress testing, h/o CVA with residual left-sided weakness precludes treadmill stress testing, patient ate breakfast earlier this AM. Please hold NPO after midnight and reschedule test for tomorrow.
--- NOTE | 2018-04-17 11:27 | ECHO ---
Name: NUBIA GAVIRIA Exam:Adult Echocardiogram Study Date: 04/17/2018 07:55 AM Age: 57 yrs Reason For Study: Chest pain Height: 65 in Weight: 250 lb BSA: 2.2 m2 MMode/2D Measurements & Calculations IVSd: 1.1 cm Ao root diam: 4.4 cm LVIDd: 4.5 cm LA dimension: 3.0 cm LVIDs: 2.5 cm ACS: 2.0 cm LVPWd: 1.6 cm IVSs: 1.9 cm LVPWs: 1.7 cm EDV(Teich): 92.0 ml ESV(Teich): 21.6 ml Doppler Measurements & Calculations MV E max gregory: 95.8 cm/sec Ao V2 max: 147.1 cm/sec MV A max gregory: 130.8 cm/sec Ao max P.7 mmHg MV E/A: 0.73 Ao V2 mean: 114.6 cm/sec Ao mean P.6 mmHg Ao V2 VTI: 24.8 cm Med Peak E' Gregory: 3.8 cm/sec Med E/e': 24.9 Lat Peak E' Gregory: 5.0 cm/sec Lat E/e': 19.0 Procedure The study was technically adequate with some images being suboptimal in quality. Left Ventricle The left ventricle is normal in size. The left ventricle is hyperdynamic. Ejection Fraction = 70%. Gr ky I diastolic dysfunction, (abnormal relaxation pattern). Right Ventricle The right ventricle is normal in size and function. Atria Normal left and right atrial size and function. Mitral Valve The mitral valve is grossly normal. There is trace mitral regurgitation. Tricuspid Valve The tricuspid valve is not well visualized. There is trace tricuspid regurgitation. There was insuffi cient TR detected to calculate RV systolic pressure. Aortic Valve The aortic valve opens well. There is mild aortic sclerosis.;. No aortic regurgitation is present. Pulmonic Valve The pulmonic valve is not well visualized. Great Vessels Mild aortic root dilatation. Pericardium/Pleura There is no pericardial effusion. Interpretation Summary There is no comparison study available. The left ventricle is normal in size. The right ventricle is normal in size and function. There is mild aortic sclerosis.; Mild aortic root dilatation. There is trace tricuspid regurgitation. The left ventricle is hyperdynamic. There is trace mitral regurgitation. Josh Shen MD 04/17/2018 11:27 AM
[2018-04-17] MEDS ORDERED: LOSARTAN POTASSIUM 50 MG TABLET (FP) PO SCH (11:45)
--- NOTE | 2018-04-17 12:19 | PN ---
Progress Note (short form) - Note Progress Note: ID consult dictated imp/reccd 57 year old man admitted with chest pain fever overnight no locallizing signs looks well labs unremarkable nothing to suggest tick illness Fever ?viral disease cultures sent would observe off antibiotics at this time chest pain- evaluation per cardiology Problem List - Problems (1) Fever Code(s): R50.9 - FEVER, UNSPECIFIED (2) Chest pain Code(s): R07.9 - CHEST PAIN, UNSPECIFIED
--- NOTE | 2018-04-17 14:24 | PN ---
Progress Note (short form) - Note Progress Note: PULMONARY CONSULTATION DICTATED 04/17/18 IMP CHEST PAIN FEVER ? VIRAL H/O BRONCHITIS HEP C H/O CVA HTN NIDDM LIKELY OSAS PLAN INHALED BRONCHODILATORS ABX PER ID CULTURES CARDIOLOGY W/U D-DIMER IF ELEVATED CHEST CTA SLEEP SCREEN SMOKING CESSATION COUNSELED LOW DOSE CHEST CT FOR LUNG CANCER SCREENING DR BLANC Problem List - Problems (1) CVA (cerebral vascular accident) Code(s): I63.9 - CEREBRAL INFARCTION, UNSPECIFIED (2) Chest pain Code(s): R07.9 - CHEST PAIN, UNSPECIFIED (3) Chronic pain of left lower extremity Code(s): M79.605 - PAIN IN LEFT LEG; G89.29 - OTHER CHRONIC PAIN (4) Fever Code(s): R50.9 - FEVER, UNSPECIFIED (5) HTN (hypertension) Code(s): I10 - ESSENTIAL (PRIMARY) HYPERTENSION (6) Obesity (BMI 30-39.9) Code(s): E66.9 - OBESITY, UNSPECIFIED (7) Tobacco abuse Code(s): Z72.0 - TOBACCO USE (8) Tobacco abuse counseling Code(s): Z71.6 - TOBACCO ABUSE COUNSELING
[2018-04-17 14:27] VITALS: BP 159/86; PULSE 101; TEMP 98.6
[2018-04-17] MEDS ORDERED: ALBUTEROL SO4 2.5/IPRATROPIUM 0.5 INH SOL 3 ML VIAL.NEB. NEB PRN (14:27)
--- NOTE | 2018-04-17 14:29 | CON.CARD ---
Consult Consult Specialty:: Cardiology Referred by:: Elliot Reason for Consultation:: chest pain - History of Present Illness Chief Complaint: chest pain History of Present Illness: 57 y/o man with a PMH of HTN, CVA (with residual L sided weakness), NIDDM, and Obesity. Who presents to the ED c/o resolved chest pain. Patient was at home rolling cigarettes when he felt a stabbing chest pain across his anterior chest. There is no associated symptoms. He denies palpitations, dizziness or syncope. Exercise tolerance is poor. Echo 04/17/18: nlef min mr/tr - History Source History Provided By: Patient, Medical Record - Alcohol/Substance Use Hx Alcohol Use: No - Smoking History Smoking history: Current every day smoker Have you smoked in the past 12 months: Yes Aproximately how many cigarettes per day: 10 Home Medications - Allergies Allergies/Adverse Reactions: Allergies Allergy/AdvReac Type Severity Reaction Status Date / Time avocado [Avocado] Allergy Verified 10/20/17 12:51 - Home Medications Home Medications: Ambulatory Orders Amlodipine Besylate 10 mg PO DAILY 06/20/17 Aspirin [ASA -] 81 mg PO DAILY 06/20/17 Losartan Potassium 100 mg PO DAILY 06/20/17 Acetaminophen/Caffeine/Butalb [Fioricet -] 1 tablet PO BID 04/16/18 Clonidine HCl [Clonidine HCl ER] 0.1 mg PO DAILY 04/16/18 Famotidine [Pepcid] 40 mg PO DAILY 04/16/18 Metformin HCl [Metformin HCl ER] 500 mg PO BID 04/16/18 Oxycodone HCl/Acetaminophen [Percocet 5-325 mg Tablet] 1 tab PO TID 04/16/18 Pravastatin Sodium 20 mg PO BID 04/16/18 Review of Systems - Review of Systems Constitutional: reports: No Symptoms Eyes: reports: No Symptoms HENT: reports: No Symptoms Neck: reports: No Symptoms Cardiovascular: reports: No Symptoms, Chest Pain Respiratory: reports: No Symptoms Gastrointestinal: reports: No Symptoms Vital Signs: Vital Signs Temperature 101.5 F H 04/17/18 05:40 Pulse Rate 108 H 04/17/18 05:40 Respiratory Rate 18 04/17/18 08:00 Blood Pressure 153/90 04/17/18 05:40 O2 Sat by Pulse Oximetry (%) 96 08/20/18 08:00 Constitutional: Yes: No Distress, Calm Eyes: Yes: Conjunctiva Clear, EOM Intact HENT: Yes: Atraumatic, Normocephalic Neck: Yes: Trachea Midline Respiratory: Yes: CTA Bilaterally Gastrointestinal: Yes: Normal Bowel Sounds, Soft Cardiovascular: Yes: Regular Rate and Rhythm JVD: No Carotid Bruit: No PMI: Non-Displaced Heart Sounds: Yes: S1, S2 Extremities: Yes: WNL Edema: No Peripheral Pulses WNL: Yes - Other Data Labs, Other Data: CBC, BMP 04/17/18 06:30 04/17/18 06:30 Troponin, BNP 04/16/18 04/16/18 04/16/18 15:40 15:40 17:50 Troponin I Cancelled < 0.02 D B-Natriuretic Peptide Cancelled 31.22 04/16/18 04/17/18 23:20 06:30 Troponin I 0.03 D 0.03 B-Natriuretic Peptide Troponin, BNP 04/16/18 04/16/18 04/16/18 15:40 15:40 17:50 Troponin I Cancelled < 0.02 D B-Natriuretic Peptide Cancelled 31.22 04/16/18 04/17/18 23:20 06:30 Troponin I 0.03 D 0.03 B-Natriuretic Peptide Imaging - Results Chest X-ray: Report Reviewed EKG: Report Reviewed (nsr nssttw changes) Assessment/Plan The chest pain is atypical for angina but he has multiple risk factors. Echo is unremarkable. Lexiscan stress test pending. continue home medications. No ACS.
--- NOTE | 2018-04-17 14:53 | CONS ---
DATE OF CONSULTATION: DATE OF DICTATION: 04/17/2018 REQUESTED BY: Dr. Zarate This is a 57-year-old man. He is a patient of Dr. Reese. He presented to the ER yesterday complaining of chest pain. He had excruciating pain that lasted for about an hour at home. He has a history of CVA with residual left-sided weakness and left leg pain, [id number] diabetes, hypertension. He presented to the emergency room with these complaints. He denied abdominal pain, diarrhea, constipation, nausea, vomiting, dysuria, or hematuria. He was admitted to telemetry. His laboratories were all normal, and overnight he was noted to have a fever of 101.5. He recalls feeling very cold but he never had any rigors. He denies any diarrhea or dysuria. His appetite is good. He denies any rashes. He has no history of any travel. He lives in [place] with his girlfriend. They have several pet cats that are house cats. He has had no sick contacts. He is not around any children. His past medical history is notable for CVA, diabetes, hypertension, ulcerative colitis, and hepatitis C. His surgical history is unremarkable. He has no known drug allergies. He is allergic to AVOCADOS. SOCIAL HISTORY: He lives with his girlfriend. He smokes 8 to 10 cigarettes a day. They live in an apartment in [place]. No history of any substance use. He is followed by Dr. Reese. His medications as an outpatient include amlodipine, aspirin, losartan, Fioricet, clonidine, Pepcid, metformin, Percocet, and pravastatin. He also has a pain doctor. Family history is notable for diabetes in his mother. REVIEW OF SYSTEMS: He has chronic daily migraines which are unchanged. He has chronic pain in his left leg, which is unchanged. He has chronic numbness on the right side of his face, which is also unchanged. He denies any shortness of breath. He denies any sore throat. Denies any vision changes. He denies any cough. He has had no diarrhea or constipation. PHYSICAL EXAMINATION: General: He is a pleasant man in no acute distress. Vital Signs: Current temperature is 98.6, T-max was 101.5 overnight. Pulse 108. Blood pressure 153/90. Respiratory rate 18. Saturating 96% on room air. HEENT: Normocephalic. His eyes are anicteric. He has no pharyngitis or thrush. He has good dentition. Neck: Supple. Lymph Nodes: He has no cervical adenopathy, he has no axillary adenopathy. Lungs: Clear to auscultation. Heart: Regular rate and rhythm. Abdomen: Soft, nontender. Extremities: Notable for he reports pain in his left leg which is chronic. Labs are notable for admission white count of 10.1, this morning is 8.1, hemoglobin 15, platelets are 203. BUN 10, creatinine 0.8. LFTs are normal. Urinalysis is negative. Urine toxicology was notable for benzodiazepines and barbiturate screen. Blood and urine cultures are pending. Chest x-ray is unremarkable. In summary, this is a 57-year-old man admitted for chest pain, who now has had fever overnight without any localizing sign. He looks well. He is hemodynamic stable. His labs are unremarkable. Cultures have been sent. Would observe him off antibiotics at this time. This could very well be a viral syndrome. He has no labs or epidemiologic findings to suggest tick-borne illness. Would observe off antibiotics at this time. LINDA CHAIDEZ M.D. [id number]
--- NOTE | 2018-04-17 18:34 | CONS ---
DATE OF CONSULTATION: 04/17/2018 REFERRING PHYSICIAN: Gurjit Zarate MD The patient is a 57-year-old male with extensive past medical history, which includes hypertension, status post CVA with residual left-sided weakness, noninsulin-dependent diabetes mellitus, morbid obesity, likely COPD, longstanding history of tobacco use and currently smoking a half pack a day. He was admitted to [facility] for complaints of acute onset of stabbing chest pain across his anterior chest. The patient states that he was home rolling cigarettes when he suddenly felt the above symptoms. He denied any nausea or vomiting, diaphoresis, although complained of shortness of breath and lightheadedness with left upper extremity numbness. Patient denies any previous history of similar pain. Patient presented to the emergency room. In the ER, the pain resolved prior to coming to the hospital. He continued to have left upper extremity numbness. Patient was admitted, as above. He was evaluated with a Cardiology consultation. Of note, the patient's hospitalization is significant for last night developing a fever of 101.7. He was evaluated by Dr. Braun for infectious disease who felt like this was most likely viral in etiology. Patient has a cough productive of clear sputum. Denies hemoptysis, denies any recent travel. There is no history of occupational exposure to chemicals or fumes. He states he is a heavy snorer and has excessive daytime sleepiness. Central witnessed apnea episodes. He does complain of occasional shortness of breath with exertion. He also has a history of multiple episodes of bronchitis in the past. He has never been intubated. PAST MEDICAL HISTORY: Includes hypertension, status post CVA, history of bronchitis, noninsulin-dependent diabetes mellitus, morbid obesity, likely obstructive sleep apnea, hepatitis C. REVIEW OF SYSTEMS: Positive cough, positive mild chest congestion, positive fever and chills, positive weakness. No nausea, no vomiting. No abdominal pain. Positive chest pain. CURRENT MEDICATIONS: Prior to admission include Norvasc, aspirin, losartan, acetaminophen, Fioricet, clonidine, Pepcid, metformin, pravastatin. Current medications include Fioricet, Cozaar, Glucophage, Catapres, Norvasc, Zantac, Lipitor, and aspirin. PHYSICAL EXAMINATION: General: The patient is an obese male, awake, alert, in no acute respiratory distress. Vital Signs: Temperature max 101.5, currently 98, heart rate is 102, blood pressure 160/90, respiratory rate 20, O2 saturation is 96% on room air. HEENT: Head is normocephalic, atraumatic. Neck: Supple. Heart: Regular S1, S2. Chest: Diminished breath sounds bilaterally. Abdomen: Soft. Bowel sounds are positive. Extremities: No cyanosis or edema. LABORATORY: WBC is 8.1, hemoglobin 15, hematocrit 43, platelet count of 203,000. BUN 10, creatinine 0.8. Chest x-ray reveals no definitive infiltrates or effusion. IMPRESSION: 1. Chest pain syndrome, etiology to be determined, possible musculoskeletal. Cannot exclude cardiac in view of the longstanding history of tobacco use and history of hypertension, diabetes, and smoking. 2. Fever, possible viral etiology. No evidence of definitive pneumonia on chest x-ray. 3. Likely obstructive sleep apnea. 4. Noninsulin-dependent diabetes mellitus. 5. History of hepatitis C. PLAN: Inhaled bronchodilators, supplemental O2 as needed. Obtain CT scan of the chest. We will obtain serum D-dimer. If elevated, we will get a chest CTA. Continue cardiac workup. Smoking cessation counseled. Also order a sleep screen. KAM BLANC M.D. [id number]
[2018-04-17] MEDS ORDERED: ATORVASTATIN CA 40 MG TABLET (FP) PO SCH (22:00)
== END 2018-04-17 18:19 | disposition left against medical advice (07) ==
LOC: JER 14:45 → JERBED 19:39 → J4W 04-17 00:48
PROVIDERS: ADMIT Internal Medicine; ATTEND Family Medicine
PROC: 3E033GC Introduction of Other Therapeutic Substance into Peripheral Vein, Percutaneous Approach (ICD-10-PCS; principal; 2018-04-16)
DX: R07.9 Chest pain, unspecified (principal); R50.9 Fever, unspecified; I10 Essential (primary) hypertension; I25.10 Atherosclerotic heart disease of native coronary artery without angina pectoris; I69.354 Hemiplegia and hemiparesis following cerebral infarction affecting left non-dominant side; E11.9 Type 2 diabetes mellitus without complications; F17.210 Nicotine dependence, cigarettes, uncomplicated; R61 Generalized hyperhidrosis; M79.605 Pain in left leg; G89.29 Other chronic pain; E66.9 Obesity, unspecified; Z68.34 Body mass index [BMI] 34.0-34.9, adult; Z79.82 Long term (current) use of aspirin; Z79.84 Long term (current) use of oral hypoglycemic drugs; Z86.19 Personal history of other infectious and parasitic diseases; Z71.6 Tobacco abuse counseling
CPT/HCPCS: 36415; 71045-TC-FY; 80048; 80053; 80307; 81003; 82550; 82553; 82962; 83605; 83735; 83880; 84100; 84443; 84484; 85025; 87040; 87086; 93005; 93010; 93306-TC; 93971-TC; 96374; 99285-25; G0378; J0735

== ENCOUNTER 2018-11-03 02:14 | Emergency (ER) | payer OTHER ==
[2018-11-03 02:29] VITALS: TEMP 97.8; BMI 35.2
--- NOTE | 2018-11-03 03:51 | PDOC ---
Attending Attestation - Resident Resident Name: Gabrielle Nixon - ED Attending Attestation I have performed the following: I have examined & evaluated the patient, The case was reviewed & discussed with the resident, I agree w/resident's findings & plan, Exceptions are as noted - HPI HPI: 11/03/18 06:36 57M here with continued occipital px after mechanical fall several days ago. Endorsing persistence of chronic ext px as well. - Physicial Exam PE: 11/03/18 06:38 Agree with exam as documented by resident - Medical Decision Making 11/03/18 06:38 Persistence of acute px over 2 days 2/2 direct trauma, clinically significant intracranial pathology unlikely, consider bony injury No acute change in chronic issues SBP w/in normal range after dose of home medications, no other complaints DC home
[2018-11-03] MEDS ORDERED: amLODIPine BESYLATE 10 MG TABLET (FP) PO ONE (04:16)
[2018-11-03] MEDS ORDERED: LOSARTAN POTASSIUM 50 MG TABLET (FP) PO ONE (04:16)
--- NOTE | 2018-11-03 04:16 | PDOC ---
History of Present Illness - General Chief Complaint: Pain Stated Complaint: PAIN Time Seen by Provider: 11/03/18 03:13 - History of Present Illness Initial Comments: Pierre Pitts is a 57yo man with a PMH of HTN, HLD, DM, COPD, s/p CVA, UC, and migraine WHITE who presents following a fall two days ago. He reports that he was at a hotel in [place], and his foot slipped on the carpet. He hit the back of his head on a glass-covered table and he lost consciousness. He states that the next thing he remembers, there were multiple people helping him into a wheelchair. He denies any symptoms prior to the fall. He went to a hostpital there and was told that everything was OK, but he states that they did not do any imaging. He has felt well over the past 2 days, but he started to have a right-sided headache and the back of his head was tender to touch. He additionally reports right-sided facial pain and left lower extremity pain. Mr Pitts states that he took fiorecet this morning, acetaminophen in the evening and gabapentin around 11pm without improvement in the headache. He did not take any of his other home medications today, including his losartan and amlodipine. He states that those are the only medications he takes on a regular basis; he does not take his statin, metformin, COPD treatments, or other meds. He states that he has residual deficits from his CVA but no longer follows with a neurologist. He does state that he saw his PMD recently and was told he was overall healthy. Past History - Past Medical History Allergies/Adverse Reactions: Allergies Allergy/AdvReac Type Severity Reaction Status Date / Time avocado [Avocado] Allergy Verified 11/03/18 02:22 Home Medications: Ambulatory Orders Amlodipine Besylate 10 mg PO DAILY 06/20/17 Aspirin [ASA -] 81 mg PO DAILY 06/20/17 Losartan Potassium 100 mg PO DAILY 06/20/17 Acetaminophen/Caffeine/Butalb [Fioricet -] 1 tablet PO BID 04/16/18 Clonidine HCl [Clonidine HCl ER] 0.1 mg PO DAILY 04/16/18 Famotidine [Pepcid] 40 mg PO DAILY 04/16/18 Oxycodone HCl/Acetaminophen [Percocet 5-325 mg Tablet] 1 tab PO TID 04/16/18 Pravastatin Sodium 20 mg PO BID 04/16/18 metFORMIN HCL [Metformin HCl ER] 500 mg PO BID 04/16/18 CVA: Yes (02/2017) COPD: No DVT: No Diabetes: Yes GI Disorders: Yes (ulcerative colitis) HTN: Yes Liver Disease: Yes (hepatitis) - Family Disease History Family Disease History: Diabetes: Mother (HTN, CVA, migraines), Other: Mother - Immunization History Immunization Up to Date: Yes - Suicide/Smoking/Psychosocial Hx Smoking History: Current every day smoker Have you smoked in the past 12 months: No Number of Cigarettes Smoked Daily: 10 Information on smoking cessation initiated: No 'Breaking Loose' booklet given: 06/20/17 Hx Alcohol Use: No Drug/Substance Use Hx: No Substance Use Type: None Hx Substance Use Treatment: No Review of Systems - Review of Systems Comments:: General: No fevers, no chills, no weight or appetite change, no malaise HEENT: +chronic R facial pain, h/o migraines, no changes in hearing, no congestion, no sore throat CV: No chest pain, no palpitations, no LE edema. h/o HTN Pulm: h/o COPD. No new SOB, no cough, no wheezing GI: No nausea or vomiting, no change in bowel habits, no melena : No frequency, no urgency, no dysuria Musc: No back pain, no joint swelling, no recent injury. h/o chronic BLE pain Skin: No rash, no lesions, no erythema Endo: No excessive thirst, no heat/cold intolerance Heme: No unusual bruising or bleeding, no swollen glands Neuro: No syncope, no numbness/tingling, no focal weakness. h/o CVA Vasc: No claudication Psych: No recent change in mood, no SI or HI *Physical Exam - Vital Signs Last Vital Signs Temp Pulse Resp BP Pulse Ox 97.8 F 68 18 182/87 H 98 11/03/18 02:22 11/03/18 02:22 11/03/18 02:22 11/03/18 02:22 11/03/18 02:22 - Physical Exam Comments: General: In no acute distress. Dirty clothing, disheveled. Malodorous. HEENT: PERRL, EOMI, MMM, voice normal, normal neck ROM, no LAD. No visible injury, no erythema, no edema, no laceration/abrasions to posterior head. Cards: RRR Pulm: Comfortable on room air Abd: Soft, nontender, nondistended Ext: Atraumatic. No LE edema. ROM intact. Strength 5/5 and equal bilaterally Vasc: Extremities WWP. Skin: Normal color, no rashes or lesions Neuro: A&Ox3, CN grossly intact, normal speech, motor/sensory grossly intact and symmetric Psych: Mood appropriate to situation Moderate Sedation - Procedure Monitoring Vital Signs: Procedure Monitoring Vital Signs Temperature 97.8 F 11/03/18 02:22 Pulse Rate 68 11/03/18 02:22 Respiratory Rate 18 11/03/18 02:22 Blood Pressure 182/87 H 11/03/18 02:22 O2 Sat by Pulse Oximetry (%) 98 11/03/18 02:22 ED Treatment Course - RADIOLOGY Radiology Studies Ordered: Category Date Time Status HEAD CT WITHOUT CONTRAST [CT] Stat CT Scan 11/03/18 03:37 Ordered - Medications Given in the ED: ED Medications Discontinued Medications Generic Name Dose Route Start Last Admin Trade Name Freq PRN Reason Stop Dose Admin Oxycodone/Acetaminophen 1 combo 11/03/18 03:37 11/03/18 03:50 Percocet 5/325 - PO 11/03/18 03:38 1 combo ONCE ONE Administration Medical Decision Making - Medical Decision Making 11/03/18 04:10 Pierre Pitts is a 57yo man with a PMH of HTN, HLD, DM, COPD, s/p CVA, UC, and migraine WHITE who presents following a fall with +occipital injury and LOC two days ago. He reports continued pain in his left body and right face following the head injury. - He was seen at a hospital in [place], but reports no imaging at that time. Concerned about serious head injury due to persistent pain after taking 2 tablets of acetaminophen at home tonight - Reassuring exam with no focal neurological deficits - Per chart review, R facial pain has been present for at least one year. Did not start with fall. Pt also reports that he sees pain management for chronic BLE pain; he does admit that his current LLE pain is not new. - Will give oxycodone for pain. CT head ordered to r/o intracranial bleed or fracture, though this is unlikely given benign neuro exam. - Noted to be HTN with SBP in the 180's. Per pt, this is normal for him when he does not take his meds. States that he did not take his BP meds today, and he never takes his statin, metformin, COPD meds, or gabapentin. Will give home BP meds and reassess vitals 11/03/18 05:47 - CT head completed. No acute abnormalities. - BP rechecked after receiving amlodipine and Percocet, now 154/81. Losartan to be sent from pharmacy - Sleeping soundly when re-examined. Fell asleep several times while discussing CT results. Continued to report severe pain. - Reassured Mr Pitts that there was no serious injury following his head trauma. He should follow up with his pain management doctor and neurology for additional evaluation of his chronic pain and migraine headaches. He states understanding. Discussed with Dr Dyer. Gabrielle Nixon PGY1 *DC/Admit/Observation/Transfer Diagnosis at time of Disposition: HTN (hypertension), Headache in back of head - Discharge Dispostion Disposition: HOME Condition at time of disposition: Stable Decision to Admit order: No - Referrals Referrals: Emmanuel Reese [Primary Care Provider] - Marcia Foley MD [Staff Physician] - Andres Johnson MD [Staff Physician] - - Patient Instructions Printed Discharge Instructions: DI for Chronic Pain -- Adult Additional Instructions: Discharge Instructions: You were seen in the emergency department following a head injury that occurred several days ago. You had a CT scan of your head that showed no injury. Your pain is most likely due to your chronic pain and your previously diagnosed migraine headaches. Home care and Follow Up - Continue to take all of your home medications as previously prescribed. - Make an appointment with your primary doctor for within the next week to discuss your high blood pressure. - You have been referred to a neurologist, Dr Foley, for evaluation of your migraine headaches. You have also been referred to a pain management doctor, Dr Johnson. You should make appointments to see both of these doctors within the next 1-2 weeks. - Seek immediate medical care if you have any new one-sided weakness, confusion , changes in your speech, unusual sleepiness, chest pain, difficulty breathing, or any medical emergency. - Post Discharge Activity
[2018-11-03] MEDS ORDERED: amLODIPine BESYLATE 5 MG TABLET (FP) ONE (04:36)
[2018-11-03 05:47] VITALS: BP 154/81; PULSE 88
== END 2018-11-03 07:01 | disposition home or self-care (01) ==
LOC: JER 02:14
DX: G44.309 Post-traumatic headache, unspecified, not intractable (principal); W01.190A Fall on same level from slipping, tripping and stumbling with subsequent striking against furniture, initial encounter; Y93.89 Activity, other specified; Y92.59 Other trade areas as the place of occurrence of the external cause; Y99.8 Other external cause status; I10 Essential (primary) hypertension; E11.9 Type 2 diabetes mellitus without complications; Z79.84 Long term (current) use of oral hypoglycemic drugs; E78.00 Pure hypercholesterolemia, unspecified; J44.9 Chronic obstructive pulmonary disease, unspecified; Z86.73 Personal history of transient ischemic attack (TIA), and cerebral infarction without residual deficits
CPT/HCPCS: 70450-TC; 99282-25

== ENCOUNTER 2019-05-03 17:38 | Observation (INO) | payer OTHER ==
[2019-05-03 18:35] VITALS: BMI 33.5
--- NOTE | 2019-05-03 18:49 | PDOC ---
History of Present Illness - General Chief Complaint: Syncope/Near Syncope Stated Complaint: SYNCOPE Time Seen by Provider: 05/03/19 17:58 History Source: Patient, Family - History of Present Illness Initial Comments: 05/03/19 19:08 Mr. Pitts is a 58 y/o M with hx HTN, HLD, DM, COPD, CVA two years ago s/p tpa , UC, migrains p/w two weeks of multiple syncopal episodes at home. He presents today after 4-5 episodes of LOC and feeling "like [he] was going to ". He reports that two weeks ago, he began to feel increasingly fatigued and weak until he had a 20 minute period where he slouched over and became unconscious. He reports that this continued for the last two weeks, with intermittent episodes of loss of consciousness. His reports that during these episodes he snores. He denies any morning sleepiness. He reports that for the last 3-4 days he has had a worsening R sided headache. He rates the pain an 8/10, localized to the R hemisphere, and strongest in one particular area on the R lateral scalp. He denies any trauma or head injury before symptom onset. He reports that two days ago he fell after having an episode of LOC while leaning forward in a chair. He reports occasional dark stools, reporting that they are either "chalky" or "dark green". He reports ongoing chronic LLE pain. He denies any fevers, chills, change in appetite, change in weight, chest pain, abdominal pain, nausea, vomiting. Past History - Past Medical History Allergies/Adverse Reactions: Allergies Allergy/AdvReac Type Severity Reaction Status Date / Time avocado [Avocado] Allergy Verified 05/03/19 17:43 Home Medications: Ambulatory Orders Amlodipine Besylate 10 mg PO DAILY 06/20/17 Aspirin [ASA -] 81 mg PO DAILY 06/20/17 Losartan Potassium 100 mg PO DAILY 06/20/17 Acetaminophen/Caffeine/Butalb [Fioricet -] 1 tablet PO BID 04/16/18 Clonidine HCl [Clonidine HCl ER] 0.1 mg PO DAILY 04/16/18 Famotidine [Pepcid] 40 mg PO DAILY 04/16/18 Pravastatin Sodium 20 mg PO BID 04/16/18 metFORMIN HCL [Metformin HCl ER] 500 mg PO BID 04/16/18 CVA: Yes (02/2017 right sided weakness) COPD: No DVT: No Diabetes: Yes GI Disorders: Yes (ulcerative colitis) HTN: Yes Liver Disease: Yes (hepatitis) - Family Disease History Family Disease History: Diabetes: Mother (HTN, CVA, migraines), Other: Mother - Immunization History Immunization Up to Date: Yes - Suicide/Smoking/Psychosocial Hx Smoking History: Current every day smoker Have you smoked in the past 12 months: Yes Number of Cigarettes Smoked Daily: 20 Information on smoking cessation initiated: No 'Breaking Loose' booklet given: 06/20/17 Hx Alcohol Use: No Drug/Substance Use Hx: No Substance Use Type: None Hx Substance Use Treatment: No Review of Systems - Review of Systems Able to Perform ROS?: Yes Comments:: 05/03/19 19:43 ROS: GENERAL/CONSTITUTIONAL: Weakness. No fever or chills. HEAD, EYES, EARS, NOSE AND THROAT: No change in vision. No ear pain or discharge. No sore throat. CARDIOVASCULAR: No chest pain or shortness of breath RESPIRATORY: No cough, wheezing, or hemoptysis. GASTROINTESTINAL: No nausea, vomiting, diarrhea or constipation. GENITOURINARY: No dysuria, frequency, or change in urination. MUSCULOSKELETAL: LLE pain. No other joint or muscle swelling or pain. No neck or back pain. SKIN: No rash NEUROLOGIC: Headache, vertigo, loss of consciousness. No change in strength/ sensation. ENDOCRINE: No increased thirst. No abnormal weight change HEMATOLOGIC/LYMPHATIC: No anemia, easy bleeding, or history of blood clots. ALLERGIC/IMMUNOLOGIC: No hives or skin allergy. *Physical Exam - Vital Signs Last Vital Signs Temp Pulse Resp BP Pulse Ox 97.6 F 80 16 160/90 100 05/03/19 17:40 05/03/19 17:40 05/03/19 17:40 05/03/19 17:40 05/03/19 17:40 - Physical Exam Comments: 05/03/19 19:44 PE: GENERAL: Awake, alert, and fully oriented, moderate distress, somnolent appearing. HEAD: Normocephalic, healing bruise on bridge of nose and under L eye. EYES: Aniscoria L > R. Pupils reactive to light and accomodation, EOMI, sclera anicteric, conjunctiva clear ENT: Auricles normal inspection, hearing grossly normal, nares patent, oropharynx clear without exudates. Moist mucosa NECK: Normal ROM, supple, no lymphadenopathy, JVD, or masses LUNGS: No distress, speaks full sentences. Poor air movement into lungs secondary to weakness. HEART: Regular rate and rhythm, normal S1 and S2, no murmurs, rubs or gallops, peripheral pulses normal and equal bilaterally. ABDOMEN: Soft, nontender, normoactive bowel sounds. No guarding, no rebound. No masses EXTREMITIES : Normal inspection, Normal range of motion, no edema. No clubbing or cyanosis NEUROLOGICAL: Mildly decreased sensation in L V3. Cranial nerves II through XII otherwise grossly intact. Normal speech, normal gait. 4/5 strength bilateral upper extremity. SKIN: Warm, Dry, normal turgor, no rashes or lesions noted Heart Score/ECG Review - History History: Slightly suspicious - Electrocardiogram EKG: Normal - Age Age: 45-65 - Risk Factors Risk Factors Heart Score: Yes Hx Hypercholesterolemia, Yes Hx Hypertension, Yes Hx Diabetes, Yes Smoking History Based on the list above the patient has:: >/=3 risk factors or Hx atherosclerotic disease - Troponin Troponin: </= normal limit - Score Heart Score - Total: 3 - ECG Intrepretation Rhythm: Regular Rhythm - [place]: Normal - P and NM Delta Wave(s) Present: No WPW: No - QRS Measured at (milliseconds): 92 - ST and T Early Repolarization: No Non Specific ST-T Wave changes: No - ECG Impressions Normal ECG: Yes Non-specific ST Elevation: No Ischemic Changes: No ED Treatment Course - LABORATORY CBC & Chemistry Diagram: 05/03/19 20:13 05/03/19 20:13 Medical Decision Making - Medical Decision Making 05/03/19 18:57 58 y/o M with hx CVA s/p tPA in 2017, HTN, HLD, DM, COPD, UC, migraines p/w two weeks of generalized weakness, fatigue, multiple syncopal episodes at home with sharp headache unlike his regular migraines, and aniscoria most concerning for ICH vs TIA. Anemia also possible given hx dark stools, UC. Plan: CT Head w/o contrast CBC CMP EKG CXR Cardiac profile PT/INR, PTT Toradol, Compazine, Benadryl for WHITE Dispo: Admit 05/03/19 20:55 CT head negative for acute process. Microvascular changes concerning for possible chronic demyelinating process. Paranasal sinus disease Labs pending 05/03/19 21:02 WBC 12.4 Hg - 15 05/03/19 22:29 Case discussed with admitting team, patient admitted to telemetry obs under Dr. Gore's group *DC/Admit/Observation/Transfer Diagnosis at time of Disposition: Syncope Qualifiers: Syncope type: unspecified Qualified Code(s): R55 - Syncope and collapse - Referrals - Patient Instructions - Post Discharge Activity
[2019-05-03] MEDS ORDERED: PROCHLORPERAZINE INJECTION 10 MG/2 ML VIAL IVPB ONE (19:39)
[2019-05-03] MEDS ORDERED: SODIUM CHLORIDE 0.9% 500 ML INFUS.BAG IV ONE (19:39)
[2019-05-03] MEDS ORDERED: KETOROLAC TROMETHAMINE 30 MG/1 ML VIAL IVPUSH ONE (19:39)
[2019-05-03] MEDS ORDERED: KETOROLAC TROMETHAMINE 30 MG/1 ML VIAL ONE ×2 (19:52→19:53)
[2019-05-03] MEDS ORDERED: PROCHLORPERAZINE INJECTION 10 MG/2 ML VIAL ONE (19:52)
[2019-05-03 20:23] LABS: BASO % 1.5 % (0-2.0); EOS % 2.5 % (0-4.5); HEMATOCRIT 44.3 % (35.4-49); LYMPH % 28.2 % (8-40); MCH 31.8 pg (25.7-33.7); MCHC 33.9 g/dl (32.0-35.9); MEAN CELL VOLUME 93.8 fl (80-96); MEAN PLT VOLUME 6.6 fl (7.5-11.1); MONO % 5.7 % (3.8-10.2); NEUT % 62.1 % (42.8-82.8); PLATELET COUNT 260 K/MM3 (134-434); RBC 4.72 M/mm3 (4.00-5.60); RDW 13.8 % (11.9-15.9); WHITE BLOOD COUNT 12.4 K/mm3 (4.0-10.0)
--- NOTE | 2019-05-03 20:38 | PDOC ---
Attending Attestation - Resident Resident Name: Josefina Parryan - ED Attending Attestation I have performed the following: I have examined & evaluated the patient, The case was reviewed & discussed with the resident, I agree w/resident's findings & plan, Exceptions are as noted - HPI HPI: 05/03/19 20:37 58M pmh DM, HLD, HTN, COPD, CVA, UC, migraine WHITE, here with 2 weeks of persistent, progressive fatigue, WHITE for the last 3-4 days, several episodes of ruddy syncope. Describes stool as green and chalky. Denies bleeding - Physicial Exam PE: 05/03/19 23:45 Agree with exam as documented by resident - Medical Decision Making 05/03/19 23:49 58M with progressive fatigue, ruddy syncope, consider CVA, arrythmia, acs, anemia? f/u ct b, labs, ekg, cxr will need admission for further care, evaluation 05/03/19 23:54
[2019-05-03 20:55] LABS: ALBUMIN 3.6 g/dl (3.4-5.0); BILIRUBIN,TOTAL 0.2 mg/dL (0.2-1); BLOOD UREA NITROGEN 10.9 mg/dL (7-18); CALCIUM 8.8 mg/dL (8.5-10.1); CREATININE 0.6 mg/dL (0.55-1.3); N-TERMINAL BNP 92.4 pg/ml (5-125); POTASSIUM 3.6 mmol/L (3.5-5.1); TOT PROT 7.6 g/dl (6.4-8.2)
[2019-05-03 21:13] LABS: INR 0.97 (0.83-1.09); PROTHROMBIN TIME (PATIENT) 11.4 SEC (9.7-13.0)
--- NOTE | 2019-05-03 21:42 | HP ---
Admitting History and Physical - Primary Care Physician PCP: Emmanuel Reese - Admission Chief Complaint: Headache, Generalized Weakness, Syncope History of Present Illness: This is a 58 y/o man with a PMHx of CVA s/p TPA, HTN, HLD, Seizure (10 yrs ago, no current meds), DM, COPD. Who presents to the ED with generalized weakness x 2 weeks, increased R-sided headache x 4 days, multiple syncopal episodes, constipated x3 days then having chalky to dark stools. Patient denies fever, chills, cough, SOB, CP, palpitations, AP, N/V, dysuria History Source: Patient, Family Member Limitations to Obtaining History: No Limitations - Past Medical History [employer]: Yes: CVA Cardiovascular: Yes: HTN, Hyperlipdemia Pulmonary: Yes: COPD Endocrine: Yes: Diabetes Mellitus - Smoking History Smoking history: Current every day smoker Have you smoked in the past 12 months: Yes Aproximately how many cigarettes per day: 10 - Alcohol/Substance Use Hx Alcohol Use: No History of Substance Use: reports: None - Social History Usual Living Arrangement: Yes: With Significant Other ADL: Independent History of Recent Travel: No Home Medications - Allergies Allergies/Adverse Reactions: Allergies Allergy/AdvReac Type Severity Reaction Status Date / Time avocado [Avocado] Allergy Verified 05/03/19 17:43 - Home Medications Home Medications: Ambulatory Orders Amlodipine Besylate 10 mg PO DAILY 06/20/17 Aspirin [ASA -] 81 mg PO DAILY 06/20/17 Losartan Potassium 100 mg PO DAILY 06/20/17 Acetaminophen/Caffeine/Butalb [Fioricet -] 1 tablet PO BID 04/16/18 Clonidine HCl [Clonidine HCl ER] 0.1 mg PO DAILY 04/16/18 Famotidine [Pepcid] 40 mg PO DAILY 04/16/18 Pravastatin Sodium 20 mg PO BID 04/16/18 metFORMIN HCL [Metformin HCl ER] 500 mg PO BID 04/16/18 Family Disease History - Family Disease History Family History: Unable to Obtain Review of Systems - Review of Systems Constitutional: reports: Malaise, Weakness Eyes: reports: No Symptoms HENT: reports: No Symptoms Neck: reports: No Symptoms Cardiovascular: reports: No Symptoms Respiratory: reports: No Symptoms Gastrointestinal: reports: No Symptoms Genitourinary: reports: No Symptoms Breasts: reports: Lumps Musculoskeletal: reports: Extremity Pain (L- Leg) Integumentary: reports: Bruising (bridge of nose) Neurological: reports: Dizziness, Headache, Pre-Existing Deficit, Unsteady Gait Endocrine: reports: No Symptoms Hematology/Lymphatic: reports: No Symptoms Psychiatric: reports: No Symptoms Pain Intensity: 6 Physical Examination Vital Signs: Vital Signs Temperature 97.6 F 05/03/19 17:40 Pulse Rate 75 05/03/19 19:43 Respiratory Rate 18 05/03/19 19:43 Blood Pressure 196/91 H 05/03/19 19:43 O2 Sat by Pulse Oximetry (%) 95 05/03/19 19:43 Constitutional: Yes: No Distress, Calm, Obese Eyes: Yes: WNL, Conjunctiva Clear, EOM Intact, PERRL HENT: Yes: Atraumatic, Normocephalic, Other (ecchymotic bruising to bridge of nose) Neck: Yes: WNL, Supple, Trachea Midline Cardiovascular: Yes: WNL, Regular Rate and Rhythm, S1, S2 Respiratory: Yes: WNL, Regular, CTA Bilaterally Gastrointestinal: Yes: WNL, Normal Bowel Sounds, Soft, Abdomen, Obese ...Rectal Exam: Yes: Other (pt refused rectal) Renal/: Yes: WNL Breast(s): Yes: WNL Musculoskeletal: Yes: Back Pain Extremities: Yes: WNL Edema: Yes Edema: LLE: Trace, RLE: Trace Peripheral Pulses WNL: Yes Neurological: Yes: Alert, Oriented, Cran Nerves II-XII Intact, Pre-Existing Deficit (R- sided weakness) ...Motor Strength: LUE (4/5), LLE (4/5), RUE (3/5), RLE (3/5) Psychiatric: Yes: WNL, Alert, Oriented Labs: CBC, BMP 05/03/19 20:13 05/03/19 20:13 Laboratory Results - last 24 hr 05/03/19 05/03/19 05/03/19 20:13 20:13 20:13 WBC 12.4 H RBC 4.72 Hgb 15.0 Hct 44.3 MCV 93.8 MCH 31.8 MCHC 33.9 RDW 13.8 Plt Count 260 D MPV 6.6 L Absolute Neuts (auto) 7.7 Neutrophils % 62.1 D Lymphocytes % 28.2 D Monocytes % 5.7 Eosinophils % 2.5 D Basophils % 1.5 D Nucleated RBC % 0 PT with INR INR PTT (Actin FS) 36.4 Sodium Potassium Chloride Carbon Dioxide Anion Gap BUN Creatinine Est GFR (CKD-EPI)AfAm Est GFR (CKD-EPI)NonAf Random Glucose Calcium Total Bilirubin AST ALT Alkaline Phosphatase Creatine Kinase 265 Creatine Kinase Index 1.3 CK-MB (CK-2) 3.5 Troponin I 0.02 B-Natriuretic Peptide Total Protein Albumin 05/03/19 05/03/19 20:13 20:13 WBC RBC Hgb Hct MCV MCH MCHC RDW Plt Count MPV Absolute Neuts (auto) Neutrophils % Lymphocytes % Monocytes % Eosinophils % Basophils % Nucleated RBC % PT with INR 11.40 INR 0.97 PTT (Actin FS) Sodium 141 Potassium 3.6 Chloride 104 Carbon Dioxide 32 Anion Gap 5 L BUN 10.9 Creatinine 0.6 Est GFR (CKD-EPI)AfAm 130.27 Est GFR (CKD-EPI)NonAf 112.40 Random Glucose 93 Calcium 8.8 Total Bilirubin 0.2 AST 30 ALT 32 Alkaline Phosphatase 76 Creatine Kinase Creatine Kinase Index CK-MB (CK-2) Troponin I B-Natriuretic Peptide 92.4 Total Protein 7.6 Albumin 3.6 Current Medications Generic Name Dose Route Start Last Admin Trade Name Freq PRN Reason Stop Dose Admin Acetaminophen/Butalbital/Caffeine 1 tablet 05/04/19 03:05 Fioricet - PO 05/04/19 03:06 ONCE ONE Amlodipine Besylate 10 mg 05/04/19 10:00 Norvasc - PO DAILY [facility] Aspirin 81 mg 05/04/19 10:00 Asa - PO DAILY MONY Non-Formulary Medication 40 mg 05/04/19 10:00 Famotidine [Pepcid] PO DAILY MONY Non-Formulary Medication 100 mg 05/04/19 10:00 Losartan Potassium [Losartan Potassium] PO DAILY MONY Non-Formulary Medication 500 mg 05/04/19 10:00 Metformin Hcl [Metformin Er Osmotic] PO BID MONY Non-Formulary Medication 20 mg 05/04/19 10:00 Pravastatin Sodium [Pravastatin Sodium] PO BID [facility] Imaging - Results Chest X-ray: Image Reviewed Cat Scan: Report Reviewed, Image Reviewed EKG: Image Reviewed Problem List - Problems (1) Syncope Assessment/Plan: Likely secondary to Arrhythmia vs Dehydration vs Malignancy Cardiac monitoring Serial Enzymes EKG- NSR with sinus arrhythmia Appreciate Cardiology consult Head CT- no acute ICH, ?chronic microvascular changes Brain MRI 11/2017- chronic infarct, no acute infarction, no intracranial mass Appreciate Neurology consult Carotid Doppler- pending Monitor CBC, BMP Monitor vitals Fall Precautions Seizure Precautions Code(s): R55 - SYNCOPE AND COLLAPSE Qualifiers: Syncope type: unspecified Qualified Code(s): R55 - Syncope and collapse (2) CAD (coronary artery disease) Assessment/Plan: stable Continue home meds EKG reviewed Code(s): I25.10 - ATHSCL HEART DISEASE OF [place] CORONARY ARTERY W/O ANG PCTRS (3) CVA (cerebral vascular accident) Assessment/Plan: stable Continue home meds Fall Precautions Code(s): I63.9 - CEREBRAL INFARCTION, UNSPECIFIED (4) Chronic pain of left lower extremity Assessment/Plan: Will continue to monitor and treat with interventions accordingly Tylenol prn Code(s): M79.605 - PAIN IN LEFT LEG; G89.29 - OTHER CHRONIC PAIN (5) HTN (hypertension) Assessment/Plan: Sub Optimal Monitor BP Continue home med Monitor renal function Code(s): I10 - ESSENTIAL (PRIMARY) HYPERTENSION (6) Right sided temporal headache Assessment/Plan: hx Migraines Continue Firocet Head CT reviewed Appreciate Neurology input Code(s): R51 - HEADACHE (7) HLD (hyperlipidemia) Assessment/Plan: stable Home med Pravastatin NF change to Lipitor Monitor LFTs Code(s): E78.5 - HYPERLIPIDEMIA, UNSPECIFIED (8) Obesity (BMI 30-39.9) Assessment/Plan: Carb control Diet Code(s): E66.9 - OBESITY, UNSPECIFIED (9) Tobacco abuse Assessment/Plan: Smoking Cessation discussed Nicoderm Patch Code(s): Z72.0 - TOBACCO USE Assessment/Plan This is a 58 y/o man Placed to Tele Observation for Syncope, Generalized Weakness for further evaluation of their emergent condition. Plan: Admit Cardiac monitoring Serial Enzymes Appreciate Cardiology consult Chest Xray- reviewed Head CT- no acute ICH Appreciate Neurology consult Carotid Doppler Monitor CBC, BMP UA- neg Continue home meds with parameters FEN- Low Na, Diabetic Diet, Replete lytes prn DVT ppx- OOB, SCDs, Heparin SQ Dispo: Observation Visit type - Emergency Visit Emergency Visit: Yes ED Registration Date: 05/03/19 Care time: The patient presented to the Emergency Department on the above date and was hospitalized for further evaluation of their emergent condition. - New Patient This patient is new to me today: Yes Date on this admission: 05/03/19 - Critical Care Critical Care patient: No
[2019-05-04] MEDS ORDERED: ACETAMINOPHEN/CAFFEINE/BUTALBITAL 1 TAB PO ONE (03:05)
[2019-05-04 07:19] LABS: BASO % 0.6 % (0-2.0); EOS % 2.9 % (0-4.5); HEMOGLOBIN 14.8 GM/dL (11.7-16.9); LYMPH % 29.8 % (8-40); MCHC 34.3 g/dl (32.0-35.9); MEAN CELL VOLUME 93.3 fl (80-96); MEAN PLT VOLUME 6.8 fl (7.5-11.1); MONO % 6.3 % (3.8-10.2); NEUT % 60.4 % (42.8-82.8); PLATELET COUNT 248 K/MM3 (134-434); RBC 4.61 M/mm3 (4.00-5.60); RDW 14.1 % (11.9-15.9)
[2019-05-04 07:25] LABS: BLOOD UREA NITROGEN 11.4 mg/dL (7-18); CALCIUM 8.7 mg/dL (8.5-10.1); CREATININE 0.7 mg/dL (0.55-1.3); POTASSIUM 3.5 mmol/L (3.5-5.1)
[2019-05-04] MEDS ORDERED: PATIENT'S OWN MEDICATION (NON-FORMULARY) (Pravastatin Sodium [Pravastatin Sodium] 20 MG) PO SCH (10:00)
[2019-05-04] MEDS: LOSARTAN POTASSIUM 50 MG TABLET (FP) PO SCH (10:48)
[2019-05-04] MEDS: amLODIPine BESYLATE 10 MG TABLET (FP) PO SCH (10:48)
[2019-05-04] MEDS: RANITIDINE HCL 150 MG TABLET (FP) PO SCH (10:48)
[2019-05-04] MEDS: ASPIRIN 81 MG CHEWABLE TABLETS PO SCH (10:49)
[2019-05-04 11:04] LABS: CHOLESTEROL 209 mg/dL (50-200); HDL CHOLESTEROL 39 mg/dL (40-60); TRIGLYCERIDES 223 mg/dL (0-150)
[2019-05-04 11:06] LABS: MAGNESIUM 2.2 mg/dL (1.8-2.4); PHOSPHOROUS 2.9 mg/dL (2.5-4.9)
--- NOTE | 2019-05-04 11:31 | PN ---
Progress Note, Physician Chief Complaint: patient complaining of headache takes fiorcet at home patient says he has been having multiple syncopal episodes at home - Current Medication List Current Medications: Active Medications Acetaminophen/Butalbital/Caffeine (Fioricet -) 1 tablet PO BID [facility] Amlodipine Besylate (Norvasc -) 10 mg PO DAILY [facility] Last Admin: 05/04/19 10:48 Dose: 10 mg Aspirin (Asa -) 81 mg PO DAILY [facility] Last Admin: 05/04/19 10:49 Dose: 81 mg Atorvastatin Calcium (Lipitor -) 40 mg PO HS [facility] Losartan Potassium (Cozaar -) 100 mg PO DAILY [facility] Last Admin: 05/04/19 10:48 Dose: 100 mg Metformin HCl (Glucophage Xr -) 500 mg PO BIDAC [facility] Last Admin: 05/04/19 10:49 Dose: 500 mg [id number] Ethyl Esters (Lovaza -) 2 gm PO BID [facility] Ranitidine HCl (Zantac -) 300 mg PO DAILY [facility] Last Admin: 05/04/19 10:48 Dose: 300 mg - Objective Vital Signs: Vital Signs Temperature 97.6 F 05/03/19 17:40 Pulse Rate 64 05/04/19 06:17 Respiratory Rate 18 05/04/19 06:17 Blood Pressure 169/95 05/04/19 06:17 O2 Sat by Pulse Oximetry (%) 94 L 05/04/19 06:17 Constitutional: Yes: Calm HENT: Yes: Other (abrasion on nasal bridge) Cardiovascular: Yes: Regular Rate and Rhythm, S1, S2 Respiratory: Yes: CTA Bilaterally Gastrointestinal: Yes: Normal Bowel Sounds, Soft Edema: No Neurological: Yes: Alert, Oriented Labs: CBC, BMP 05/04/19 06:30 05/04/19 06:30 INR, PTT INR 0.97 (0.83-1.09) 05/03/19 20:13 Problem List - Problems (1) Syncope Assessment/Plan: carotid doppler no significant stenosis continue aspirin statin lovaza echo ordered telemetry cardiology consult Code(s): R55 - SYNCOPE AND COLLAPSE Qualifiers: Syncope type: unspecified Qualified Code(s): R55 - Syncope and collapse (2) HLD (hyperlipidemia) Assessment/Plan: inc statin to 40mg add lovaza lipid panel noted Code(s): E78.5 - HYPERLIPIDEMIA, UNSPECIFIED (3) Right sided temporal headache Assessment/Plan: fiorecet bid Code(s): R51 - HEADACHE (4) HTN (hypertension) Assessment/Plan: micha Code(s): I10 - ESSENTIAL (PRIMARY) HYPERTENSION (5) Diabetes Assessment/Plan: check hga1c bgm sliding scale metformin Code(s): E11.9 - TYPE 2 DIABETES MELLITUS WITHOUT COMPLICATIONS Qualifiers: Diabetes mellitus type: type 2
--- NOTE | 2019-05-04 11:46 | ECHO ---
Name: NUBIA GAVIRIA Exam:Adult Echocardiogram Study Date: 05/04/2019 09:36 AM Age: 58 yrs Reason For Study: SYNCOPAL EPISODE Height: 71 in Weight: 240 lb BSA: 2.3 m2 MMode/2D Measurements & Calculations IVSd: 1.1 cm Ao root diam: 3.2 cm LVIDd: 4.8 cm LA dimension: 3.7 cm LVIDs: 3.2 cm LVPWd: 1.1 cm EDV(Teich): 105.8 ml LVOT diam: 2.1 cm ESV(Teich): 42.4 ml Doppler Measurements & Calculations MV E max tg: 69.1 cm/sec Ao V2 max: 147.7 cm/sec MV A max tg: 94.8 cm/sec Ao max P.7 mmHg MV E/A: 0.73 Ao V2 mean: 117.3 cm/sec MV dec time: 0.25 sec Ao mean P.9 mmHg Ao V2 VTI: 35.1 cm JAMEY(I,D): 2.3 cm2 JAMEY(V,D): 2.3 cm2 LV V1 max P.1 mmHg SV(LVOT): 79.1 ml LV V1 mean P.4 mmHg LV V1 max: 101.8 cm/sec LV V1 mean: 71.9 cm/sec LV V1 VTI: 23.3 cm Left Ventricle There is mild concentric left ventricular hypertrophy. Left ventricular systolic function is normal. Ejection Fraction = 55-60%. The transmitral spectral Doppler flow pattern is suggestive of impaired LV relaxat ion. Right Ventricle The right ventricle is normal in size and function. Atria Normal left and right atrial size and function. Mitral Valve The mitral valve is normal in structure and function. There is no mitral valve stenosis. There is no mitral regurgitation noted. Tricuspid Valve The tricuspid valve is normal in structure and function. There is mild tricuspid regurgitation. Right ventricular systolic pressure is normal. Aortic Valve Probably nodular thickening/ focal calcification on the aortic valve. No hemodynamically significant valvular aortic stenosis. No aortic regurgitation is present. Pulmonic Valve The pulmonic valve is not well seen, but is grossly normal. There is no pulmonic valvular stenosis. T here is no pulmonic valvular regurgitation. Great Vessels Borderline aortic root dilatation. Pericardium/Pleura There is no pericardial effusion. Interpretation Summary Left ventricular systolic function is normal. Ejection Fraction = 55-60%. There is mild concentric left ventricular hypertrophy. The right ventricle is normal in size and function. The transmitral spectral Doppler flow pattern is suggestive of impaired LV relaxation. There is mild tricuspid regurgitation. Right ventricular systolic pressure is normal. There is no pericardial effusion. Borderline aortic root dilatation. Probably nodular thickening/ focal calcification on the aortic valve. MD Gonzales *Kristin 05/04/2019 11:46 AM
[2019-05-04] MEDS ORDERED: ACETAMINOPHEN/CAFFEINE/BUTALBITAL 1 TAB ONE (12:00)
[2019-05-04] MEDS: ACETAMINOPHEN/CAFFEINE/BUTALBITAL 1 TAB PO SCH ×2 (12:09→22:59)
[2019-05-04] MEDS: OMEGA-3 ACID ETHYL ESTERS (FATTY-ACIDS) 1 GM CAPSULE (FP) PO SCH ×2 (12:09→22:16)
--- NOTE | 2019-05-04 13:08 | CON.CARD ---
Consult Consult Specialty:: Cardiology Referred by:: Bao Reason for Consultation:: syncope - History of Present Illness Chief Complaint: ?passing out History of Present Illness: 58 year old male with a pmhx of htn, hld, dm, copd, cva two years ago, UC, and migraines presenting with ? syncope. Says last couple weeks has episodes daily when he feels very tired and sleepy and sits down puts head forward and ?passes out. No chest pain, sob, or palpitations prior to episode or after. Had 4 episodes yesterday. Says girlfriend reports he snores during these episodes. Patient did not pass out in ER but says he almost did (no events on monitor) No h/o exertional chest pain or dyspnea. 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 Cardio/Vascular: Yes: HTN, Hyperlipdemia Pulmonary: Yes: COPD Endocrine: Yes: Diabetes Mellitus - Alcohol/Substance Use Hx Alcohol Use: No History of Substance Use: reports: None - Smoking History Smoking history: Current every day smoker Have you smoked in the past 12 months: Yes Aproximately how many cigarettes per day: 10 - Social History ADL: Independent History of Recent Travel: No Home Medications - Allergies Allergies/Adverse Reactions: Allergies Allergy/AdvReac Type Severity Reaction Status Date / Time avocado [Avocado] Allergy Verified 05/03/19 17:43 - Home Medications Home Medications: Ambulatory Orders Amlodipine Besylate 10 mg PO DAILY 06/20/17 Aspirin [ASA -] 81 mg PO DAILY 06/20/17 Losartan Potassium 100 mg PO DAILY 06/20/17 Acetaminophen/Caffeine/Butalb [Fioricet -] 1 tablet PO BID 04/16/18 Clonidine HCl [Clonidine HCl ER] 0.1 mg PO DAILY 04/16/18 Famotidine [Pepcid] 40 mg PO DAILY 04/16/18 Pravastatin Sodium 20 mg PO BID 04/16/18 metFORMIN HCL [Metformin HCl ER] 500 mg PO BID 04/16/18 Vital Signs: Vital Signs Temperature 97.6 F 05/03/19 17:40 Pulse Rate 64 05/04/19 06:17 Respiratory Rate 18 05/04/19 06:17 Blood Pressure 169/95 05/04/19 06:17 O2 Sat by Pulse Oximetry (%) 94 L 05/04/19 06:17 Constitutional: Yes: No Distress Neck: Yes: Supple Respiratory: Yes: CTA Bilaterally Gastrointestinal: Yes: Soft Cardiovascular: Yes: Regular Rate and Rhythm JVD: No Carotid Bruit: No PMI: Non-Displaced Heart Sounds: Yes: S1, S2 Murmur: No: Systolic Murmur Edema: No - Other Data Labs, Other Data: CBC, BMP 05/04/19 06:30 05/04/19 06:30 INR, PTT INR 0.97 (0.83-1.09) 05/03/19 20:13 Troponin, BNP 05/03/19 05/03/19 05/04/19 20:13 20:13 02:15 Troponin I 0.02 0.02 B-Natriuretic Peptide 92.4 05/04/19 10:15 Troponin I < 0.02 B-Natriuretic Peptide Troponin, BNP 05/03/19 05/03/19 05/04/19 20:13 20:13 02:15 Troponin I 0.02 0.02 B-Natriuretic Peptide 92.4 05/04/19 10:15 Troponin I < 0.02 B-Natriuretic Peptide Imaging - Results Chest X-ray: Report Reviewed Cat Scan: Report Reviewed EKG: Image Reviewed Assessment/Plan 58 year old male with a pmhx of htn, hld, dm, copd, cva two years ago, UC, and migraines presenting with ? syncope. Says last couple weeks has episodes daily when he feels very tired and sleepy and sits down puts head forward and ?passes out. No chest pain, sob, or palpitations prior to episode or after. Had 4 episodes yesterday. Says girlfriend reports he snores during these episodes. Patient did not pass out in ER but says he almost did (no events on monitor) No h/o exertional chest pain or dyspnea. 1) ?Syncope -Description of event almost sounds like sleep apnea. Would be very rare to have so many episodes due to arrhythmia without having an event. Almost passed out in er and monitor was unremarkable. Carotids no stenosis CT scan head no acute events CXR no acute pathology EKG: sinus rhythm, nl axis, nl st segments Echocardiogram mild lvh, nl lvef, no significant valve disease. -Monitor on tele 24 hours. If does not have event while on tele than needs outpatient monitor Sleep study BP control. Restart home meds. Can add hctz if needed. Renin/lisset level
--- NOTE | 2019-05-04 14:09 | EKG ---
Test Reason : Blood Pressure : / mmHG Vent. Rate : 082 BPM Atrial Rate : 082 BPM P-R Int : 156 ms QRS Dur : 092 ms QT Int : 374 ms P-R-T Axes : 055 024 028 degrees QTc Int : 436 ms NORMAL SINUS RHYTHM POSSIBLE LEFT ATRIAL ENLARGEMENT ABNORMAL ECG WHEN COMPARED WITH ECG OF 16-APR-2018 15:08, NO SIGNIFICANT CHANGE WAS FOUND Confirmed by NAJMA DE MD ([id number]) on 05/04/2019 2:08:59 PM Referred By: Confirmed By:NAJMA DE MD
[2019-05-04] MEDS ORDERED: ACETAMINOPHEN 325 MG TABLET (FP) PO PRN (14:39)
[2019-05-04 16:29] LABS: URINE APPEARANCE Clear; URINE BILIRUBIN Negative (NEGATIVE); URINE COLOR Yellow; URINE GLUCOSE (UA) Negative (NEGATIVE); URINE KETONE Negative (NEGATIVE); URINE LEUK ESTERASE Negative (NEGATIVE); URINE NITRITE Negative (NEGATIVE); URINE PROTEIN Negative (NEGATIVE); URINE UROBILINOGEN 0.2 mg/dL (0.2-1.0)
[2019-05-04] MEDS ORDERED: ACETAMINOPHEN 325 MG TABLET (FP) ONE (16:43)
--- NOTE | 2019-05-04 17:47 | CONSULT ---
Consult - text type - Consultation Consultation Note: NEUROLOGY CONSULT GREATLY APPRECIATED: Events reviewed. Cardiology consult read and appreciated. This 58 yo RH man is on disability due to CVA. Ambulates with cane for past 2 years since L CVA with R hemiparesis requiring rehab stay. PMHX: HTN, HLD, DM, Ulcerative colitis. nicotine dependence (1PPD), migraines since 19, chronic pain and insomnia. On: amlodipine, ASA 81, losartan, Fioricet, clonidine, famotidine, pravastatin, metformin. Here for reports of more recent "passing out" episodes. Reports this could be while seated, or in the middle of a task he will, without warning, have LOC. His notes he then is usually snoring. When awakened, he is immediately aware of his surroundings. He denies any B/B incontinence or tongue biting. Seizure activity has never been described. Review of systems sig for now daily holocranial "pounding" headaches with associated photophobia, phonophobia, kinesiophobia for the past year. These are no longer relieved with 2 Fioricet daily +/- ES Tylenol. He does note grinding of the teeth. He also notes since his stroke 2 years ago, "constant" "sharp" pains in his left thigh. This was not relieved by physical therapy, acupuncture and even pain management with gabapentin, nortriptyline with Dr. Schulte. This past year has now started to include the right thigh. This pain is somewhat relieved by stretching the legs, or getting up and walking around. Sleep remains poor with frequent awakenings. He does note he has some relief with use of Percocet. FH++ mother, sister, nieces/nephews with migraines Head CT (reviewed): Bilateral scattered chronic periventricular and subcortical ischemic changes. MRI of brain W/WO contrast 12/06/17 (reviewed): Multiple scattered deep subcortical chronic ischemic changes (L>>R) Carotid duplex: intimal thickening in distal common carotid and small plaques at bifurcation. No heme sig stenosis EKG sinus rhythm ECHO: LV function nl. Mild LVH. AURA: BP 176/69. Morbidly obese. No bruit. Cor reg. Excoriation to left brow and nasal bridge after fall 3 days ago. Neck supple. Neg SLR. Awake, alert, oriented x 3. CNII-CNXII: EOM's full without nystagmus. Full araya. No facial. Gag ok. Motor: Min R drift. Strength normal. Reflexes normal including AJ's. Plantars silent. Coordination: No FTN dystaxia. Sensation: Normal to vibration. Romberg - Gait: Stiff-legged. Can walk on heels, toes without difficulty. Impression: 1. Mild B/L Cerebral dysfunction (L>R) due to chronic hypertensive microvascular disease. 2. Chronic migraine headaches- now Chronic daoily haeadache syndrome (CDHS) due to overuse of analgesics marsha Fioricet. Chronic migraines will also contribute to the MRI findings described above. 3. Probable, severe, Obstructive sleep apnea (PATRICIA) with day time somnolence. Doubt seizures. 4. Chronic pain and insomnia c/w Restless Limbs Syndrome (RLS) SUGGEST: Begin topiramate 25 mg BID x 4 days then 50 mg BID. Sumaatriptan 100 mg for breakthrough headaches. D/C fioricet and all OTC analgesics. Check Fe++, TIBC, Feritin. Check ABG Begin Pramipexole 0.125 mg BID x 2 days then .25 mg BID Schedule sleep Lab study with leads for periodic leg movts (PLEDS ) and jaw movt (Bruxism). Agree with telemetry and orthostatic BP's. Thank you very much, Horacio Francis MD
[2019-05-04] MEDS ORDERED: SUMAtriptan SUCCINATE 50 MG TABLET PO PRN (19:21)
[2019-05-04] MEDS ORDERED: PRAMIPEXOLE DIHYDROCHLORIDE 0.125 MG TABLET PO SCH (22:00)
[2019-05-04] MEDS ORDERED: ATORVASTATIN CA 10 MG TABLET (FP) PO SCH ×2 (22:00)
[2019-05-04] MEDS: TOPIRAMATE 25 MG TABLET (FP) PO SCH (22:16)
[2019-05-05] MEDS ORDERED: PT OWN MED DRAWER 7, Y5N ONE (08:25)
[2019-05-05] MEDS: RANITIDINE HCL 150 MG TABLET (FP) PO SCH (08:36)
[2019-05-05] MEDS: amLODIPine BESYLATE 10 MG TABLET (FP) PO SCH (08:36)
[2019-05-05] MEDS: LOSARTAN POTASSIUM 50 MG TABLET (FP) PO SCH (08:36)
[2019-05-05] MEDS: TOPIRAMATE 25 MG TABLET (FP) PO SCH (08:37)
[2019-05-05] MEDS: ACETAMINOPHEN/CAFFEINE/BUTALBITAL 1 TAB PO SCH (08:37)
[2019-05-05] MEDS: OMEGA-3 ACID ETHYL ESTERS (FATTY-ACIDS) 1 GM CAPSULE (FP) PO SCH (08:37)
[2019-05-05] MEDS: ASPIRIN 81 MG CHEWABLE TABLETS PO SCH (08:37)
[2019-05-05 08:41] VITALS: PULSE 99; TEMP 98
[2019-05-05 09:49] VITALS: BP 174/93
--- NOTE | 2019-05-05 14:09 | DS ---
Physical Examination Vital Signs: Vital Signs Temperature 98.0 F 05/05/19 08:33 Pulse Rate 99 H 05/05/19 08:33 Respiratory Rate 19 05/05/19 08:33 Blood Pressure 174/93 H 05/05/19 08:45 O2 Sat by Pulse Oximetry (%) 99 05/05/19 08:37 Cardiovascular: Yes: S1, S2 Respiratory: Yes: Regular, CTA Bilaterally Gastrointestinal: Yes: Normal Bowel Sounds, Soft Labs: CBC, BMP 05/04/19 06:30 05/04/19 06:30 Discharge Summary Reason For Visit: SYNCOPE Hospital Course: - Problems (1) Syncope Assessment/Plan: carotid doppler no significant stenosis continue aspirin statin lovaza echo ordered telemetry cardiology consult Code(s): R55 - SYNCOPE AND COLLAPSE Qualifiers: Syncope type: unspecified Qualified Code(s): R55 - Syncope and collapse (2) HLD (hyperlipidemia) Assessment/Plan: inc statin to 40mg add lovaza lipid panel noted Code(s): E78.5 - HYPERLIPIDEMIA, UNSPECIFIED (3) Right sided temporal headache Assessment/Plan: fiorecet bid Code(s): R51 - HEADACHE (4) HTN (hypertension) Assessment/Plan: norvasc and cozaar meds need to be adjusted Code(s): I10 - ESSENTIAL (PRIMARY) HYPERTENSION (5) Diabetes Assessment/Plan: check hga1c bgm sliding scale metformin Code(s): E11.9 - TYPE 2 DIABETES MELLITUS WITHOUT COMPLICATIONS Qualifiers: Diabetes mellitus type: type 2 compliance and work up d/w pt at length but he was not interested in cooperating Patient signed out AMA Condition: Unchanged/Unknown - Instructions Disposition: AGAINST MEDICAL ADVICE - Home Medications Comprehensive Discharge Medication List: Ambulatory Orders Amlodipine Besylate 10 mg PO DAILY 06/20/17 Aspirin [ASA -] 81 mg PO DAILY 06/20/17 Losartan Potassium 100 mg PO DAILY 06/20/17 Acetaminophen/Caffeine/Butalb [Fioricet -] 1 tablet PO BID 04/16/18 Clonidine HCl [Clonidine HCl ER] 0.1 mg PO DAILY 04/16/18 Famotidine [Pepcid] 40 mg PO DAILY 04/16/18 Pravastatin Sodium 20 mg PO BID 04/16/18 metFORMIN HCL [Metformin HCl ER] 500 mg PO BID 04/16/18
== END 2019-05-05 09:30 | disposition left against medical advice (07) ==
LOC: JER 17:38 → JERBED 21:32 → J2W 05-04 18:32
PROVIDERS: ADMIT Family Medicine; ATTEND Family Medicine
PROC: 3E0333Z Introduction of Anti-inflammatory into Peripheral Vein, Percutaneous Approach (ICD-10-PCS; principal; 2019-05-03)
PROC: 3E033NZ Introduction of Analgesics, Hypnotics, Sedatives into Peripheral Vein, Percutaneous Approach (ICD-10-PCS; 2019-05-03)
PROC: 3E0337Z Introduction of Electrolytic and Water Balance Substance into Peripheral Vein, Percutaneous Approach (ICD-10-PCS; 2019-05-03)
PROC: 3E033GC Introduction of Other Therapeutic Substance into Peripheral Vein, Percutaneous Approach (ICD-10-PCS; 2019-05-03)
DX: R55 Syncope and collapse (principal); I10 Essential (primary) hypertension; I25.10 Atherosclerotic heart disease of native coronary artery without angina pectoris; E78.5 Hyperlipidemia, unspecified; E11.9 Type 2 diabetes mellitus without complications; J44.9 Chronic obstructive pulmonary disease, unspecified; F17.210 Nicotine dependence, cigarettes, uncomplicated; I69.351 Hemiplegia and hemiparesis following cerebral infarction affecting right dominant side; M79.605 Pain in left leg; G89.29 Other chronic pain; G47.00 Insomnia, unspecified; G43.709 Chronic migraine without aura, not intractable, without status migrainosus; G93.89 Other specified disorders of brain; E66.9 Obesity, unspecified; Z68.33 Body mass index [BMI] 33.0-33.9, adult; Z86.69 Personal history of other diseases of the nervous system and sense organs; Z79.82 Long term (current) use of aspirin; Z79.84 Long term (current) use of oral hypoglycemic drugs; Z86.19 Personal history of other infectious and parasitic diseases; Z87.19 Personal history of other diseases of the digestive system
CPT/HCPCS: 36415; 70450-TC; 71045-TC-FY; 80048; 80053; 80061; 81003; 82550; 82553; 82728; 82962; 83036; 83540; 83550; 83721; 83735; 83880; 84100; 84484; 85025; 85610; 85730; 87086; 93005; 93010; 93306-TC; 93880-TC; 96374; 96375; 99285-25; G0378

== ENCOUNTER 2020-10-31 17:24 | Emergency (ER) | payer OTHER ==
[2020-10-31 17:52] VITALS: TEMP 98.9; BMI 33.5
[2020-10-31] MEDS ORDERED: ACETAMINOPHEN 1000 MG/100 ML VIAL (NON FORMULARY) IVPB ONE (19:57)
[2020-10-31] MEDS ORDERED: LACTATED RINGERS SOLUTION 1000 ML INFUS.BAG IV ONE (20:08)
[2020-10-31] MEDS ORDERED: ACETAMINOPHEN INJECTION 100 ML IVPB ONE (20:43)
[2020-10-31 21:16] LABS: BASO % 0.6 % (0-2.0); EOS % 2.8 % (0-4.5); HEMATOCRIT 45.2 % (35.4-49); HEMOGLOBIN 15.5 GM/dL (11.7-16.9); LYMPH % 32.3 % (8-40); MCH 31.8 pg (25.7-33.7); MCHC 34.3 g/dl (32.0-35.9); MEAN CELL VOLUME 92.8 fl (80-96); MEAN PLT VOLUME 8.2 fl (7.5-11.1); MONO % 6.2 % (3.8-10.2); NEUT % 58.1 % (42.8-82.8); PLATELET COUNT 223 K/MM3 (134-434); RBC 4.87 M/mm3 (4.00-5.60); RDW 13.7 % (11.9-15.9); WHITE BLOOD COUNT 10.1 K/mm3 (4.0-10.0)
[2020-10-31 21:43] LABS: POTASSIUM 3.7 mmol/L (3.5-5.1)
[2020-10-31 21:47] LABS: BLOOD UREA NITROGEN 16.7 mg/dL (7-18); CALCIUM 8.9 mg/dL (8.5-10.1)
[2020-10-31 21:48] LABS: ALBUMIN 3.7 g/dl (3.4-5.0)
[2020-10-31 21:51] LABS: CREATININE 1.1 mg/dL (0.55-1.3)
[2020-10-31 21:52] LABS: BILIRUBIN,TOTAL 0.4 mg/dL (0.2-1); TOT PROT 7.8 g/dl (6.4-8.2)
[2020-10-31 22:03] LABS: INR 0.92 (0.83-1.09); PROTHROMBIN TIME (PATIENT) 11.4 SEC (9.7-13.0)
[2020-10-31 22:06] LABS: ACTIVATED PTT 27.1 SECONDS (25.2-36.5)
[2020-10-31] MEDS ORDERED: IBUPROFEN 400 MG TABLET (FP) PO ONE ×2 (22:48→23:03)
[2020-10-31 23:06] VITALS: BP 184/91; PULSE 82
== END 2020-10-31 23:06 | disposition left against medical advice (07) ==
LOC: JER 17:24
PROC: 3E033GC Introduction of Other Therapeutic Substance into Peripheral Vein, Percutaneous Approach (ICD-10-PCS; principal; 2020-10-31)
DX: R53.1 Weakness (principal); M25.561 Pain in right knee; M25.562 Pain in left knee
CPT/HCPCS: 36415; 71045-TC-FY; 73560-TC-LT-FY; 73560-TC-RT-FY; 80053; 82550; 82553; 84484; 85025; 85610; 85730; 86140; 93005; 93010; 96374; 99285-25; C9803; J0131; U0003

== ENCOUNTER 2020-12-09 10:12 | Inpatient (IN) | payer OTHER ==
[2020-12-09] MEDS ORDERED: LACTATED RINGERS SOLUTION 1000 ML INFUS.BAG IV ONE (10:48)
[2020-12-09 11:23] LABS: URINE APPEARANCE CLEAR; URINE BILIRUBIN NEGATIVE (NEGATIVE); URINE COLOR YELLOW; URINE GLUCOSE (UA) 3+ (NEGATIVE); URINE KETONE 3+ (NEGATIVE); URINE LEUK ESTERASE NEGATIVE (NEGATIVE); URINE NITRITE NEGATIVE (NEGATIVE); URINE PROTEIN NEGATIVE (NEGATIVE); URINE UROBILINOGEN 0.2 mg/dL (0.2-1.0)
[2020-12-09 11:24] LABS: BASO % 0.8 % (0-2.0); HEMATOCRIT 50.7 % (35.4-49); HEMOGLOBIN 16.5 GM/dL (11.7-16.9); LYMPH % 7.6 % (8-40); MCH 31.8 pg (25.7-33.7); MCHC 32.6 g/dl (32.0-35.9); MEAN CELL VOLUME 97.5 fl (80-96); MEAN PLT VOLUME 8.6 fl (7.5-11.1); MONO % 7.3 % (3.8-10.2); NEUT % 84.3 % (42.8-82.8); PLATELET COUNT 252 K/MM3 (134-434); RDW 14.3 % (11.9-15.9); WHITE BLOOD COUNT 10.8 K/mm3 (4.0-10.0)
[2020-12-09 11:38] LABS: CHLORIDE 87 mmol/L (98-107); SODIUM 126 mmol/L (136-145)
[2020-12-09 11:40] LABS: ALBUMIN 3.6 g/dl (3.4-5.0); ANION GAP 24 MMOL/L (8-16); BLOOD UREA NITROGEN 27.7 mg/dL (7-18); CALCIUM 10.1 mg/dL (8.5-10.1); CO2 15 mmol/L (21-32)
[2020-12-09 11:41] LABS: MAGNESIUM 2.7 mg/dL (1.8-2.4)
[2020-12-09 11:43] LABS: SGPT/ALT 33 U/L (13-61)
[2020-12-09 11:44] LABS: CREATININE 1.3 mg/dL (0.55-1.3); SGOT/AST 14 U/L (15-37)
[2020-12-09 11:45] LABS: BILIRUBIN,TOTAL 0.6 mg/dL (0.2-1); TOT PROT 8.1 g/dl (6.4-8.2)
[2020-12-09 11:46] LABS: ALK PHOS 106 U/L (45-117); GLUCOSE,RANDOM 869 mg/dL (74-106)
[2020-12-09] MEDS ORDERED: SODIUM CHLORIDE 0.9% 500 ML INFUS.BAG IV ONE (12:28)
[2020-12-09] MEDS ORDERED: INSULIN REGULAR HUMAN 100 UNITS/ML *VIAL* (FOR IVP) IVPUSH ONE (12:28)
[2020-12-09] MEDS ORDERED: INSULIN REGULAR 100 UNITS in SODIUM CHLORIDE 99 ML IVPB SCH (12:45)
[2020-12-09 14:12] LABS: VENOUS BASE EXCESS -13.5 mmol/L (-2-2); VENOUS PCO2 40.7 mmHg (38-52)
[2020-12-09 14:13] LABS: VENOUS PH 7.168 (7.310-7.410)
[2020-12-09] MEDS ORDERED: SODIUM CHLORIDE 0.9%/KCL 20 MEQ/1,000 ML INFUS.BAG IV SCH (14:15)
[2020-12-09] MEDS ORDERED: SODIUM CHLORIDE 1,000 ML with POTASSIUM CHLORIDE 20 MEQ IV SCH (15:15)
[2020-12-09 16:30] LABS: CHLORIDE 99 mmol/L (98-107); SODIUM 133 mmol/L (136-145)
[2020-12-09 16:31] LABS: ANION GAP 18 MMOL/L (8-16); BLOOD UREA NITROGEN 19.5 mg/dL (7-18); CALCIUM 8.9 mg/dL (8.5-10.1); CO2 16 mmol/L (21-32)
[2020-12-09 16:36] LABS: GLUCOSE,RANDOM 401 mg/dL (74-106)
[2020-12-09] MEDS ORDERED: HEPARIN NA (PORCINE) 5,000 UNITS/ML 1ML VIAL SQ SCH ×2 (18:00→22:00)
[2020-12-09 18:50] LABS: BLOOD UREA NITROGEN 18.8 mg/dL (7-18)
[2020-12-09 18:53] LABS: CREATININE 0.9 mg/dL (0.55-1.3)
[2020-12-09] MEDS ORDERED: INSULIN SLIDING SCALE (NOVOLOG) 1 VIAL SQ SCH ×3 (20:15→22:00)
[2020-12-09 20:40] LABS: VENOUS BASE EXCESS -5.4 mmol/L (-2-2); VENOUS O2 SATURATION 83.8 % (70-80); VENOUS PCO2 40.5 mmHg (38-52); VENOUS PH 7.318 (7.310-7.410)
[2020-12-09 20:45] LABS: CALCIUM 8.4 mg/dL (8.5-10.1)
[2020-12-09 20:46] LABS: BLOOD UREA NITROGEN 18.1 mg/dL (7-18)
[2020-12-09 20:49] LABS: CREATININE 0.9 mg/dL (0.55-1.3)
[2020-12-09 21:18] LABS: CALCIUM 8.3 mg/dL (8.5-10.1)
[2020-12-09 21:19] LABS: BLOOD UREA NITROGEN 17.2 mg/dL (7-18)
[2020-12-09] MEDS ORDERED: CHLORHEXIDINE GLUCONATE 4% CLEANSER FOR DECOLONIZATION TP SCH (22:00)
[2020-12-09] MEDS ORDERED: MUPIROCIN 2% TOPICAL OINTMENT FOR DECOLONIZATION NS SCH (22:00)
[2020-12-09] MEDS ORDERED: INSULIN (LEVEMIR) 100 UNITS/ML UNITS SQ SCH (23:05)
[2020-12-10] MEDS ORDERED: D5-1/2NS+20 MEQ KCL - 20 MEQ/1,000 ML INFUS.BAG IV SCH (01:00)
[2020-12-10 01:49] LABS: BLOOD UREA NITROGEN 14.3 mg/dL (7-18)
[2020-12-10 01:52] LABS: CREATININE 0.7 mg/dL (0.55-1.3)
[2020-12-10] MEDS ORDERED: INSULIN (LEVEMIR) 100 UNITS/ML UNITS SQ SCH ×4 (07:00→22:00)
[2020-12-10] MEDS ORDERED: POTASSIUM CHLORIDE TABS 10 MEQ TABLET.ER (FP) PO ONE (08:45)
[2020-12-10 09:21] LABS: BASO % 0.3 % (0-2.0); EOS % 0.7 % (0-4.5); HEMATOCRIT 41.1 % (35.4-49); HEMOGLOBIN 14.2 GM/dL (11.7-16.9); LYMPH % 17.3 % (8-40); MCHC 34.6 g/dl (32.0-35.9); MEAN CELL VOLUME 92.6 fl (80-96); MEAN PLT VOLUME 8.2 fl (7.5-11.1); MONO % 7.9 % (3.8-10.2); NEUT % 73.8 % (42.8-82.8); PLATELET COUNT 235 K/MM3 (134-434); RBC 4.44 M/mm3 (4.00-5.60); RDW 13.9 % (11.9-15.9); WHITE BLOOD COUNT 10.4 K/mm3 (4.0-10.0)
[2020-12-10] MEDS ORDERED: INSULIN (NOVOLOG) ASPART 100 UNITS/ML 10ML VIAL ONE ×2 (10:07→21:48)
[2020-12-10 10:09] LABS: CALCIUM 8.5 mg/dL (8.5-10.1)
[2020-12-10 10:10] LABS: MAGNESIUM 2.1 mg/dL (1.8-2.4)
[2020-12-10 10:12] LABS: BLOOD UREA NITROGEN 12.4 mg/dL (7-18)
[2020-12-10 10:14] LABS: CREATININE 0.7 mg/dL (0.55-1.3)
[2020-12-10 10:15] LABS: BILIRUBIN,TOTAL 0.5 mg/dL (0.2-1); PHOSPHOROUS 1.8 mg/dL (2.5-4.9); TOT PROT 6.2 g/dl (6.4-8.2)
[2020-12-10] MEDS: D5-1/2NS+20 MEQ KCL - 20 MEQ/1,000 ML INFUS.BAG IV SCH ×2 (10:17→22:21)
[2020-12-10 10:22] LABS: ALBUMIN 2.7 g/dl (3.4-5.0)
[2020-12-10] MEDS: HEPARIN NA (PORCINE) 5,000 UNITS/ML 1ML VIAL SQ SCH ×2 (10:22→21:45)
[2020-12-10] MEDS: INSULIN SLIDING SCALE (NOVOLOG) 1 VIAL SQ SCH ×4 (10:27→21:43)
[2020-12-10] MEDS: LOSARTAN POTASSIUM 50 MG TABLET PO SCH (10:50)
[2020-12-10] MEDS: amLODIPine BESYLATE 5 MG TABLET (FP) PO SCH (10:50)
[2020-12-10] MEDS: GABAPENTIN 100 MG CAPSULE PO SCH ×2 (17:08→21:56)
[2020-12-10] MEDS: CYANOCOBALAMIN (VITAMIN B-12) 1000 MCG/1 ML VIAL IM SCH (17:24)
[2020-12-10] MEDS: BACITRACIN 15 GM TUBE TOPICAL OINTMENT TP SCH ×2 (17:42→21:47)
[2020-12-10] MEDS ORDERED: BACITRACIN 15 GM TUBE TOPICAL OINTMENT TP SCH (22:00)
[2020-12-11] MEDS: ACETAMINOPHEN 325 MG TABLET (FP) PO PRN ×2 (02:10→09:37)
[2020-12-11] MEDS: D5-1/2NS+20 MEQ KCL - 20 MEQ/1,000 ML INFUS.BAG IV SCH (05:50)
[2020-12-11 06:13] VITALS: TEMP 98.3
[2020-12-11] MEDS: GABAPENTIN 100 MG CAPSULE PO SCH (06:37)
[2020-12-11] MEDS: INSULIN SLIDING SCALE (NOVOLOG) 1 VIAL SQ SCH ×2 (06:39→11:54)
[2020-12-11] MEDS ORDERED: metFORMIN HCL 500 MG TABLET (FP) PO SCH (07:00)
[2020-12-11] MEDS ORDERED: PT OWN MED DRAWER 7, Y5N ONE (09:13)
[2020-12-11 09:25] LABS: HEMATOCRIT 41.7 % (35.4-49); HEMOGLOBIN 14.6 GM/dL (11.7-16.9); MCHC 35.1 g/dl (32.0-35.9); MEAN CELL VOLUME 91.3 fl (80-96); MEAN PLT VOLUME 8.3 fl (7.5-11.1); PLATELET COUNT 200 K/MM3 (134-434); RBC 4.57 M/mm3 (4.00-5.60); RDW 13.7 % (11.9-15.9); WHITE BLOOD COUNT 9.6 K/mm3 (4.0-10.0)
[2020-12-11] MEDS: amLODIPine BESYLATE 5 MG TABLET (FP) PO SCH (09:35)
[2020-12-11] MEDS: LOSARTAN POTASSIUM 50 MG TABLET PO SCH (09:36)
[2020-12-11] MEDS: HEPARIN NA (PORCINE) 5,000 UNITS/ML 1ML VIAL SQ SCH ×2 (09:36→09:49)
[2020-12-11] MEDS: BACITRACIN 15 GM TUBE TOPICAL OINTMENT TP SCH (09:36)
[2020-12-11] MEDS: CYANOCOBALAMIN (VITAMIN B-12) 1000 MCG/1 ML VIAL IM SCH (09:48)
[2020-12-11] MEDS ORDERED: PATIENT'S OWN MEDICATION (NON-FORMULARY) (Metformin Hcl [Metformin Er Osmotic] 500 MG Tab. PO SCH (10:00)
[2020-12-11] MEDS ORDERED: LOSARTAN POTASSIUM 50 MG TABLET PO SCH (10:00)
[2020-12-11] MEDS ORDERED: INSULIN (LEVEMIR) 100 UNITS/ML UNITS SQ SCH (10:00)
[2020-12-11] MEDS ORDERED: ASPIRIN 81 MG CHEWABLE TABLETS PO SCH (10:00)
[2020-12-11 10:18] LABS: BLOOD UREA NITROGEN 7.3 mg/dL (7-18)
[2020-12-11 10:21] LABS: CREATININE 0.6 mg/dL (0.55-1.3)
[2020-12-11 10:22] LABS: BILIRUBIN,TOTAL 0.6 mg/dL (0.2-1)
[2020-12-11 10:23] LABS: TOT PROT 6.3 g/dl (6.4-8.2)
[2020-12-11] MEDS ORDERED: LOSARTAN POTASSIUM 50 MG TABLET PO ONE (12:45)
[2020-12-11 13:05] VITALS: BMI 27.7
[2020-12-11 19:51] VITALS: BP 116/65; PULSE 93
[2020-12-11] MEDS ORDERED: ATORVASTATIN CA 20 MG TABLET (FP) PO SCH (22:00)
[2020-12-12] MEDS ORDERED: LOSARTAN POTASSIUM 50 MG TABLET PO SCH (10:00)
== END 2020-12-11 13:38 | disposition home or self-care (01) | DRG 638 ==
LOC: JER 10:12 → JERBED 12:59 → J6S 12-10 04:35
PROVIDERS: ADMIT Family Medicine; ATTEND Family Medicine
DX: E11.10 Type 2 diabetes mellitus with ketoacidosis without coma (principal); I69.351 Hemiplegia and hemiparesis following cerebral infarction affecting right dominant side; J44.9 Chronic obstructive pulmonary disease, unspecified; I10 Essential (primary) hypertension; E78.5 Hyperlipidemia, unspecified; I25.10 Atherosclerotic heart disease of native coronary artery without angina pectoris; M25.571 Pain in right ankle and joints of right foot; E11.65 Type 2 diabetes mellitus with hyperglycemia; R45.850 Homicidal ideations; G43.909 Migraine, unspecified, not intractable, without status migrainosus; Z99.3 Dependence on wheelchair
CPT/HCPCS: 36415; 70450-TC; 71045-TC-FY; 72125-TC; 80048; 80053; 81003; 82010; 82803; 82962; 83036; 83735; 84100; 84484; 85025; 85027; 87040; 87086; 93005; 93010; 93880-TC; 99285-25; C9803; J1644; U0003; U0005

== ENCOUNTER 2021-05-03 17:13 | Emergency (ER) | payer OTHER ==
[2021-05-03 17:25] VITALS: BP 150/75; PULSE 103; TEMP 98; BMI 29.9
[2021-05-03] MEDS ORDERED: ACETAMINOPHEN/CAFFEINE/BUTALBITAL 1 TAB PO ONE (18:51)
[2021-05-03] MEDS ORDERED: ACETAMINOPHEN/CAFFEINE/BUTALBITAL 1 TAB ONE ×2 (18:58→19:00)
== END 2021-05-03 20:19 | disposition home or self-care (01) ==
LOC: JER 17:13
DX: H57.11 Ocular pain, right eye (principal); R51.9 Headache, unspecified; Y04.0XXA Assault by unarmed brawl or fight, initial encounter
CPT/HCPCS: 70486-TC; 99284-25

== ENCOUNTER 2021-07-31 19:17 | Emergency (ER) | payer OTHER ==
[2021-07-31 19:23] VITALS: BP 107/69; PULSE 84; TEMP 98; BMI 33.2
[2021-07-31] MEDS ORDERED: KETOROLAC TROMETHAMINE 30 MG/1 ML VIAL IM ONE (22:33)
[2021-07-31] MEDS ORDERED: KETOROLAC TROMETHAMINE 30 MG/1 ML VIAL ONE (22:42)
== END 2021-07-31 23:04 | disposition home or self-care (01) ==
LOC: JER 19:17
PROC: 3E023GC Introduction of Other Therapeutic Substance into Muscle, Percutaneous Approach (ICD-10-PCS; principal; 2021-07-31)
DX: R53.81 Other malaise (principal); Y04.8XXA Assault by other bodily force, initial encounter
CPT/HCPCS: 70450-TC; 73630-TC-RT-FY; 96372; 99284-25

== ENCOUNTER 2022-01-01 17:26 | Emergency (ER) | payer OTHER ==
[2022-01-01 17:39] VITALS: TEMP 98.1; BMI 37.9
[2022-01-01 20:14] LABS: BASO % 0.7 % (0-2.0); EOS % 3.9 % (0-4.5); HEMATOCRIT 44.6 % (35.4-49); HEMOGLOBIN 15.2 GM/dL (11.7-16.9); LYMPH % 30.4 % (8-40); MEAN CELL VOLUME 94.2 fl (80-96); MEAN PLT VOLUME 6.9 fl (7.5-11.1); MONO % 4.7 % (3.8-10.2); NEUT % 60.3 % (42.8-82.8); PLATELET COUNT 247 10^3/uL (134-434); RBC 4.74 M/mm3 (4.00-5.60); RDW 13.9 % (11.9-15.9); WHITE BLOOD COUNT 12.1 K/mm3 (4.0-10.0)
[2022-01-01 20:58] LABS: ERYTHROCYTE SEDIMENTATION RATE 7 mm/hr (0-20)
[2022-01-01] MEDS ORDERED: BACLOFEN 10 MG TABLET (FP) PO ONE (21:16)
[2022-01-01] MEDS ORDERED: BACLOFEN 10 MG TABLET (FP) ONE (21:35)
[2022-01-01 22:28] VITALS: BP 134/82; PULSE 76
== END 2022-01-01 22:28 | disposition home or self-care (01) ==
LOC: JER 17:26
DX: M25.511 Pain in right shoulder (principal)
CPT/HCPCS: 36415; 82962; 85025; 85651; 86140; 99283-25; J0475

== ENCOUNTER 2022-09-24 13:40 | Emergency (ER) | payer OTHER ==
[2022-09-24 13:50] VITALS: BP 169/81; PULSE 83; RESP 20; TEMP 97.6; BMI 37.9
== END 2022-09-24 15:10 | disposition home or self-care (01) ==
LOC: JERFT 13:40
PROC: 0H94XZZ Drainage of Neck Skin, External Approach (ICD-10-PCS; principal; 2022-09-24)
DX: L02.11 Cutaneous abscess of neck (principal)
CPT/HCPCS: 10060; 99282-25

== ENCOUNTER 2022-10-31 03:41 | Emergency (ER) | payer OTHER ==
[2022-10-31 03:52] VITALS: BMI 37.2
[2022-10-31] MEDS ORDERED: ACETAMINOPHEN 325 MG TABLET (FP) PO ONE (04:46)
[2022-10-31] MEDS ORDERED: ACETAMINOPHEN 325 MG TABLET (FP) ONE (04:50)
[2022-10-31] MEDS ORDERED: LIDOCAINE 5% TOPICAL PATCH TP ONE (06:36)
[2022-10-31 06:44] VITALS: BP 160/85; PULSE 81; RESP 19; TEMP 97.8
[2022-10-31] MEDS ORDERED: LIDOCAINE 5% TOPICAL PATCH ONE (06:44)
[2022-10-31] MEDS ORDERED: LIDOCAINE PATCH REMOVAL MC SCH (22:00)
== END 2022-10-31 06:58 | disposition home or self-care (01) ==
LOC: JER 03:41
DX: M25.572 Pain in left ankle and joints of left foot (principal); M25.511 Pain in right shoulder; M79.662 Pain in left lower leg; G89.29 Other chronic pain; Z86.73 Personal history of transient ischemic attack (TIA), and cerebral infarction without residual deficits
CPT/HCPCS: 70450-TC; 73030-TC-RT-FY; 73060-TC-RT-FY; 73502-TC-LT-FY; 73560-TC-LT-FY; 73610-TC-LT-FY; 73630-TC-LT; 99285-25

== ENCOUNTER 2023-02-09 10:43 | Emergency (ER) | payer OTHER ==
[2023-02-09 10:53] VITALS: BP 156/80; PULSE 80; RESP 18; TEMP 98; BMI 38.7
[2023-02-09] MEDS ORDERED: IBUPROFEN 600 MG TABLET (FP) PO ONE ×2 (11:22→11:26)
[2023-02-09] MEDS ORDERED: METHOCARBAMOL 500 MG TABLET PO ONE (11:23)
[2023-02-09] MEDS ORDERED: METHOCARBAMOL 500 MG TABLET ONE (11:26)
== END 2023-02-09 13:33 | disposition home or self-care (01) ==
LOC: JERFT 10:43
DX: M54.2 Cervicalgia (principal)
CPT/HCPCS: 70360-TC-FY; 72125-TC; 99284-25

== ENCOUNTER 2023-04-05 10:06 | Emergency (ER) | payer OTHER ==
[2023-04-05 10:15] VITALS: RESP 18; TEMP 97.8; BMI 37.9
[2023-04-05] MEDS ORDERED: ACETAMINOPHEN 1000 MG/100 ML BAG IVPB ONE (10:49)
[2023-04-05] MEDS ORDERED: ACETAMINOPHEN INJECTION 100 ML IVPB ONE (11:27)
[2023-04-05 11:33] LABS: HEMATOCRIT 49.2 % (35.4-49); HEMOGLOBIN 16.7 GM/dL (11.7-16.9); LYMPH % 28.8 % (8-40); MCH 30.8 pg (25.7-33.7); MCHC 33.9 g/dl (32.0-35.9); MEAN CELL VOLUME 90.8 fl (80-96); MEAN PLT VOLUME 6.7 fl (7.5-11.1); MONO % 5.1 % (3.8-10.2); NEUT % 62.1 % (42.8-82.8); PLATELET COUNT 273 10^3/uL (134-434); RBC 5.42 M/mm3 (4.00-5.60); RDW 14.4 % (11.9-15.9); WHITE BLOOD COUNT 8.6 K/mm3 (4.0-10.0)
[2023-04-05 11:40] LABS: PROTHROMBIN TIME (PATIENT) 11.6 SEC (9.7-13.0)
[2023-04-05 11:42] LABS: ACTIVATED PTT 28.2 SECONDS (25.2-36.5)
[2023-04-05 11:51] LABS: POTASSIUM 3.8 mmol/L (3.5-5.1)
[2023-04-05 11:53] LABS: BLOOD UREA NITROGEN 11.2 mg/dL (7-18); CALCIUM 9.2 mg/dL (8.5-10.1)
[2023-04-05 11:55] LABS: ALBUMIN 3.6 g/dl (3.4-5.0)
[2023-04-05 11:57] LABS: MAGNESIUM 2.2 mg/dL (1.8-2.4)
[2023-04-05 11:59] LABS: BILIRUBIN,TOTAL 0.3 mg/dL (0.2-1); TOT PROT 7.8 g/dl (6.4-8.2)
[2023-04-05 12:45] LABS: EPI CELLS 13 /uL (0-25.1); HYALINE CASTS 2 /uL (0-3.1); PH,URINE 5.5 (5.0-8.0); URINE APPEARANCE CLEAR; URINE BACTERIA 9 /uL (0-1359); URINE BILIRUBIN 1+ (NEGATIVE); URINE COLOR DK YELLOW; URINE GLUCOSE (UA) 2+ (NEGATIVE); URINE KETONE TRACE (NEGATIVE); URINE LEUK ESTERASE NEGATIVE (NEGATIVE); URINE NITRITE NEGATIVE (NEGATIVE); URINE PROTEIN 2+ (NEGATIVE); URINE RBC 16 /uL (0-23.9); URINE WBC 30 /uL (0-25.8)
[2023-04-05] MEDS ORDERED: KETOROLAC TROMETHAMINE 15 MG/ML VIAL IVPUSH ONE (15:13)
[2023-04-05] MEDS ORDERED: KETOROLAC TROMETHAMINE 15 MG/ML VIAL ONE (15:22)
[2023-04-05 15:26] VITALS: BP 158/89; PULSE 72
== END 2023-04-05 15:46 | disposition home or self-care (01) ==
LOC: JER 10:06
PROC: 3E033NZ Introduction of Analgesics, Hypnotics, Sedatives into Peripheral Vein, Percutaneous Approach (ICD-10-PCS; principal; 2023-04-05)
PROC: 3E0333Z Introduction of Anti-inflammatory into Peripheral Vein, Percutaneous Approach (ICD-10-PCS; 2023-04-05)
DX: R10.31 Right lower quadrant pain (principal); R10.2 Pelvic and perineal pain
CPT/HCPCS: 36415; 74177-TC; 80053; 81003; 82150; 83605; 83690; 83735; 84153; 85025; 85610; 85730; 86850; 86900; 86901; 87086; 96374; 96375; 99285-25; Q9967

== ENCOUNTER 2023-05-19 04:48 | Day surgery (SDC) | payer OTHER ==
[2023-05-17 10:37] VITALS: BMI 37.9
[2023-05-19] MEDS ORDERED: MIDAZOLAM HCL 2 MG/2 ML SINGLE DOSE VIAL ONE (11:35)
[2023-05-19 12:36] VITALS: RESP 16
[2023-05-19 12:45] VITALS: BP 125/57; PULSE 81; TEMP 98
== END 2023-05-19 13:04 | disposition home or self-care (01) ==
LOC: JASU-ENDO 04:48
PROVIDERS: ATTEND Internal Medicine Gastroenterology
PROC: 0DB68ZX Excision of Stomach, Via Natural or Artificial Opening Endoscopic, Diagnostic (ICD-10-PCS; 2023-05-19)
PROC: 0DB78ZX Excision of Stomach, Pylorus, Via Natural or Artificial Opening Endoscopic, Diagnostic (ICD-10-PCS; 2023-05-19)
PROC: 0DJD8ZZ Inspection of Lower Intestinal Tract, Via Natural or Artificial Opening Endoscopic (ICD-10-PCS; principal; 2023-05-19 12:00)
DX: Z12.11 Encounter for screening for malignant neoplasm of colon (principal); K29.50 Unspecified chronic gastritis without bleeding; I10 Essential (primary) hypertension; E11.9 Type 2 diabetes mellitus without complications; Z79.84 Long term (current) use of oral hypoglycemic drugs
CPT/HCPCS: 88305-TC; 88342-TC

== ENCOUNTER 2023-11-11 11:24 | Emergency (ER) | payer OTHER ==
[2023-11-11 11:32] VITALS: RESP 18; BMI 39.1
[2023-11-11] MEDS ORDERED: ACETAMINOPHEN INJECTION 100 ML IVPB ONE (15:51)
[2023-11-11] MEDS: ACETAMINOPHEN 1000 MG/100 ML BAG IVPB ONE (15:59)
[2023-11-11] MEDS: SODIUM CHLORIDE 0.9% 500 ML INFUS.BAG IV ONE (15:59)
[2023-11-11 16:10] LABS: BASO % 0.7 % (0-2.0); EOS % 1.3 % (0-4.5); HEMATOCRIT 44.4 % (35.4-49); LYMPH % 30.6 % (8-40); MCH 31.4 pg (25.7-33.7); MCHC 33.8 g/dl (32.0-35.9); MEAN CELL VOLUME 92.8 fl (80-96); MEAN PLT VOLUME 7.2 fl (7.5-11.1); MONO % 5.5 % (3.8-10.2); NEUT % 61.9 % (42.8-82.8); PLATELET COUNT 253 10^3/uL (134-434); RBC 4.79 M/mm3 (4.00-5.60); RDW 13.3 % (11.9-15.9); WHITE BLOOD COUNT 10.4 K/mm3 (4.0-10.0)
[2023-11-11 16:12] LABS: PH,URINE 5.5 (5.0-8.0); URINE APPEARANCE CLEAR; URINE BILIRUBIN NEGATIVE (NEGATIVE); URINE COLOR YELLOW; URINE GLUCOSE (UA) 3+ (NEGATIVE); URINE KETONE TRACE (NEGATIVE); URINE LEUK ESTERASE NEGATIVE (NEGATIVE); URINE NITRITE NEGATIVE (NEGATIVE); URINE PROTEIN NEGATIVE (NEGATIVE); URINE UROBILINOGEN 0.2 mg/dL (0.2-1.0)
[2023-11-11 16:55] LABS: POTASSIUM 3.7 mmol/L (3.5-5.1)
[2023-11-11 16:57] LABS: ALBUMIN 3.3 g/dl (3.4-5.0); CALCIUM 9.3 mg/dL (8.5-10.1)
[2023-11-11 16:58] LABS: BLOOD UREA NITROGEN 11.1 mg/dL (7-18)
[2023-11-11 17:01] LABS: CREATININE 0.8 mg/dL (0.55-1.3)
[2023-11-11 17:02] LABS: BILIRUBIN,TOTAL 0.5 mg/dL (0.2-1)
[2023-11-11 17:47] VITALS: BP 138/77; PULSE 99; TEMP 97.8
== END 2023-11-11 18:07 | disposition home or self-care (01) ==
LOC: JER 11:24
PROC: 3E033NZ Introduction of Analgesics, Hypnotics, Sedatives into Peripheral Vein, Percutaneous Approach (ICD-10-PCS; principal; 2023-11-11)
DX: R21 Rash and other nonspecific skin eruption (principal); R35.0 Frequency of micturition; N48.29 Other inflammatory disorders of penis; R20.0 Anesthesia of skin; R10.30 Lower abdominal pain, unspecified
CPT/HCPCS: 36415; 80053; 81003; 82962; 85025; 87086; 96374; 99284-25; J0131

== ENCOUNTER 2024-01-19 20:48 | Observation (INO) | payer OTHER ==
[2024-01-19] MEDS ORDERED: ACETAMINOPHEN INJECTION 100 ML IVPB ONE (22:45)
[2024-01-19] MEDS ORDERED: ONDANSETRON 4 MG/2 ML VIAL ONE (22:45)
[2024-01-19] MEDS: ACETAMINOPHEN 1000 MG/100 ML BAG IVPB ONE (23:09)
[2024-01-19] MEDS: SODIUM CHLORIDE 1,000 ML IV STA (23:09)
[2024-01-19] MEDS: ONDANSETRON 4 MG/2 ML VIAL IVPUSH ONE (23:09)
[2024-01-19 23:14] LABS: BASO % 0.6 % (0-2.0); EOS % 0.2 % (0-4.5); HEMATOCRIT 40.4 % (35.4-49); HEMOGLOBIN 13.9 GM/dL (11.7-16.9); LYMPH % 11.5 % (8-40); MCH 31.8 pg (25.7-33.7); MCHC 34.4 g/dl (32.0-35.9); MEAN CELL VOLUME 92.6 fl (80-96); MONO % 7.7 % (3.8-10.2); PH,URINE 5.5 (5.0-8.0); PLATELET COUNT 253 10^3/uL (134-434); RBC 4.36 M/mm3 (4.00-5.60); RDW 13.5 % (11.9-15.9); URINE APPEARANCE CLEAR; URINE BILIRUBIN NEGATIVE (NEGATIVE); URINE COLOR YELLOW; URINE GLUCOSE (UA) 3+ (NEGATIVE); URINE KETONE 1+ (NEGATIVE); URINE LEUK ESTERASE NEGATIVE (NEGATIVE); URINE NITRITE NEGATIVE (NEGATIVE); URINE PROTEIN 2+ (NEGATIVE); WHITE BLOOD COUNT 15.2 K/mm3 (4.0-10.0)
[2024-01-19 23:19] LABS: INR 1.12 (0.83-1.09); PROTHROMBIN TIME (PATIENT) 12.8 SEC (9.7-13.0)
[2024-01-19 23:22] LABS: ACTIVATED PTT 27.1 SECONDS (25.2-36.5)
[2024-01-19 23:26] LABS: CALCIUM 8.3 mg/dL (8.5-10.1)
[2024-01-19 23:27] LABS: ALBUMIN 2.8 g/dl (3.4-5.0); BLOOD UREA NITROGEN 13.7 mg/dL (7-18)
[2024-01-19 23:30] LABS: CREATININE 0.9 mg/dL (0.55-1.3)
[2024-01-19 23:32] LABS: BILIRUBIN,TOTAL 0.5 mg/dL (0.2-1); TOT PROT 7.2 g/dl (6.4-8.2)
[2024-01-19 23:44] LABS: HYALINE CASTS 0.14 /uL (0-3.1); URINE BACTERIA 3.7 /uL (0-1359); URINE RBC 12.4 /uL (0-23.9); URINE WBC 9.4 /uL (0-25.8)
[2024-01-20] MEDS ORDERED: ONDANSETRON 4 MG/2 ML VIAL IVPUSH PRN (05:00)
[2024-01-20] MEDS: ACETAMINOPHEN 1000 MG/100 ML BAG IVPB PRN (05:20)
[2024-01-20] MEDS ORDERED: CYCLOBENZAPRINE HCL 10 MG TABLET (FP) PO PRN (06:01)
[2024-01-20] MEDS: INSULIN ASPART SLIDING SCALE (NOVOLOG) 1 VIAL SQ SCH (06:06)
[2024-01-20] MEDS ORDERED: REPAGLINIDE 1 MG TABLET PO SCH (07:00)
[2024-01-20] MEDS ORDERED: ALBUTEROL SO4 HFA INHALER IH PRN (07:35)
[2024-01-20] MEDS ORDERED: INSULIN (NOVOLOG) ASPART 100 UNITS/ML 10ML VIAL ONE (07:45)
[2024-01-20 08:23] LABS: BASO % 0.5 % (0-2.0); EOS % 0.3 % (0-4.5); HEMOGLOBIN 13.4 GM/dL (11.7-16.9); MCH 31.6 pg (25.7-33.7); MCHC 33.5 g/dl (32.0-35.9); MEAN CELL VOLUME 94.2 fl (80-96); MEAN PLT VOLUME 7.1 fl (7.5-11.1); MONO % 3.1 % (3.8-10.2); NEUT % 86.1 % (42.8-82.8); PLATELET COUNT 226 10^3/uL (134-434); RBC 4.24 M/mm3 (4.00-5.60); RDW 13.4 % (11.9-15.9); WHITE BLOOD COUNT 13.4 K/mm3 (4.0-10.0)
[2024-01-20] MEDS: REPAGLINIDE 1 MG TABLET PO SCH (08:33)
[2024-01-20 08:40] LABS: POTASSIUM 3.6 mmol/L (3.5-5.1)
[2024-01-20 08:42] LABS: BLOOD UREA NITROGEN 12.1 mg/dL (7-18); CALCIUM 8.3 mg/dL (8.5-10.1)
[2024-01-20 08:46] LABS: CREATININE 0.8 mg/dL (0.55-1.3)
[2024-01-20] MEDS ORDERED: SEMAGLUTIDE 7 MG PO SCH (10:00)
[2024-01-20] MEDS: LOSARTAN POTASSIUM 50 MG TABLET PO SCH (11:07)
[2024-01-20] MEDS: ATORVASTATIN CA 20 MG TABLET (FP) PO SCH (11:07)
[2024-01-20] MEDS: amLODIPine BESYLATE 10 MG TABLET (FP) PO SCH (11:07)
[2024-01-20] MEDS: ASPIRIN 81 MG CHEWABLE TABLETS PO SCH (11:08)
[2024-01-20] MEDS: FAMOTIDINE 40 MG TABLET PO SCH (11:54)
[2024-01-20] MEDS: TIOTROPIUM BROMIDE 2.5 MCG (SPIRIVA) RESPIMAT INHALER IH SCH (13:18)
[2024-01-20] MEDS: NICOTINE 7 MG/24 HOURS TOPICAL PATCH TD SCH (16:59)
[2024-01-20] MEDS: CEFTRIAXONE 2 GM in DEXTROSE 5%-WATER 100 ML IVPB SCH (18:44)
[2024-01-21 08:36] LABS: POTASSIUM 3.5 mmol/L (3.5-5.1)
[2024-01-21 08:43] LABS: ALBUMIN 2.5 g/dl (3.4-5.0); CALCIUM 8.1 mg/dL (8.5-10.1)
[2024-01-21 08:44] LABS: BLOOD UREA NITROGEN 9.8 mg/dL (7-18); HEMATOCRIT 39.4 % (35.4-49); MCH 31.2 pg (25.7-33.7); MCHC 33.1 g/dl (32.0-35.9); MEAN CELL VOLUME 94.4 fl (80-96); MEAN PLT VOLUME 7.2 fl (7.5-11.1); PLATELET COUNT 240 10^3/uL (134-434); RBC 4.18 M/mm3 (4.00-5.60); RDW 13.3 % (11.9-15.9); WHITE BLOOD COUNT 13.4 K/mm3 (4.0-10.0)
[2024-01-21 08:47] LABS: CREATININE 0.7 mg/dL (0.55-1.3)
[2024-01-21 08:49] LABS: BILIRUBIN,TOTAL 0.5 mg/dL (0.2-1); TOT PROT 6.4 g/dl (6.4-8.2)
[2024-01-21] MEDS: POLYETHYLENE GLYCOL (HEALTHYLAX) 3350 17 GM PACKET PO SCH (10:00)
[2024-01-21] MEDS ORDERED: INSULIN (NOVOLOG) ASPART 100 UNITS/ML 10ML VIAL ONE (12:02)
[2024-01-21 14:25] VITALS: BMI 32.9
[2024-01-21 14:48] VITALS: BP 112/68; PULSE 88; RESP 20; TEMP 98.4
[2024-01-21] MEDS: ACETAMINOPHEN 1000 MG/100 ML BAG IVPB PRN (15:28)
[2024-01-22 08:07] LABS: CARCINOEMBRYONIC ANTIGEN 7.7 ng/mL (0.0-4.7)
== END 2024-01-21 16:30 | disposition left against medical advice (07) ==
LOC: JER 20:48 → INTOOBSV 01-20 02:35 → UNDOADMOB 01-20 02:35 → JERBED 01-20 02:35 → J7W 01-20 03:49
PROVIDERS: ADMIT Internal Medicine; ATTEND Family Medicine
PROC: 3E033NZ Introduction of Analgesics, Hypnotics, Sedatives into Peripheral Vein, Percutaneous Approach (ICD-10-PCS; principal; 2024-01-20)
PROC: 3E013VG Introduction of Insulin into Subcutaneous Tissue, Percutaneous Approach (ICD-10-PCS; 2024-01-20)
PROC: 3E033GC Introduction of Other Therapeutic Substance into Peripheral Vein, Percutaneous Approach (ICD-10-PCS; 2024-01-20)
PROC: 3E0337Z Introduction of Electrolytic and Water Balance Substance into Peripheral Vein, Percutaneous Approach (ICD-10-PCS; 2024-01-20)
DX: R10.31 Right lower quadrant pain (principal); R16.0 Hepatomegaly, not elsewhere classified; C61 Malignant neoplasm of prostate; E11.9 Type 2 diabetes mellitus without complications; K51.90 Ulcerative colitis, unspecified, without complications; J44.9 Chronic obstructive pulmonary disease, unspecified; R63.4 Abnormal weight loss; Z68.32 Body mass index [BMI] 32.0-32.9, adult; R42 Dizziness and giddiness; R51.9 Headache, unspecified; E78.00 Pure hypercholesterolemia, unspecified; B19.20 Unspecified viral hepatitis C without hepatic coma; Z86.73 Personal history of transient ischemic attack (TIA), and cerebral infarction without residual deficits; F17.200 Nicotine dependence, unspecified, uncomplicated
CPT/HCPCS: 0241U-QW; 36415; 70450-TC; 71045-TC-FY; 74177-TC; 74183-TC; 80048; 80053; 81003; 82105; 82378; 82962; 83690; 84153; 84484; 85025; 85027; 85610; 85730; 86682; 86704; 86753; 86803; 86850; 86900; 86901; 87040; 87086; 87340; 87517; 87522; 93005; 93010; 96361; 96372; 96374; 96375; 96376; 97161-GP; 99285-25; G0378; J0131